=== PATIENT | male | born 1985 | race African-American/Black ===

== ENCOUNTER 2022-08-28 16:42 | Emergency (ER) | payer OTHER, SELFPAY ==
[2022-08-28 16:56] VITALS: BP 135/92; PULSE 87; RESP 16; TEMP 36.8; O2SAT 97; BMI 27.9
--- NOTE | 2022-08-28 16:58 | ED_ITS ---
HPI - General Adult General Chief complaint: General Medical Stated complaint: Post nasal drip Time Seen by Provider: 08/28/22 16:57 Source: patient Mode of arrival: ambulatory Limitations: no limitations History of Present Illness HPI narrative: Patient is a 36 year old assigned male at with a history of asthma presenting to the emergency department today with post-nasal drip and congestion. Patient states that he was seen for a few weeks ago for the same issue and was given a few days of prednisone and antibiotics and it got better but now it is back. Patient denies any dizziness, lightheadedness, abdominal pain, nausea, vomiting, fever, chills, blurry vision, double vision, loss of vision, chest pain, difficulty breathing, shortness of breath, back pain, night sweats, pain with urination, increased urinary frequency, increased urinary urgency, blood in his urine or stool, syncope or a near syncopal episode, recent trauma or falls, bowel incontinence, bladder incontinence, bowel retention, bladder retention, or any other complaints at this time. Onset (ago): week(s) Severity: mild Severity scale (1-10): 2 Relieving factors: none Exacerbating factors: none Associated symptoms: denies other symptoms Treatments prior to arrival: none Related Data Previous Rx's Medication Instructions Recorded loratadine 10 mg tablet 10 mg PO DAILY #30 tabs 08/28/22 prednisone 20 mg tablet 20 mg PO DAILY 7 days #7 tabs 08/28/22 Allergies Allergy/AdvReac Type Severity Reaction Status Date / Time No Known Allergies Allergy Verified 08/28/22 16:59 Review of Systems Constitutional: Constitutional: Reports no additional constitutional c omplaints, Denies chills, Denies fever(s) and Denies night sweats Eyes: Eyes: Reports no additional eye complaints, Denies blurry vision, Denies change in vision, Denies diplopia, Denies eye discharge, Denies loss of vision and Denies eye pain ENT: Denies dizziness Comments: post nasal drip, congestion Cardiovascular: Cardiovascular: Reports no additional cardiovascular complaints, Denies chest pain, Denies lightheadedness, Denies Loss of Consciousness and Denies dyspnea Respiratory: Respiratory: Reports no additional respiratory complaints and Denies dyspnea Gastrointestinal: Gastrointestinal: Reports no additional gastrointestinal complaints, Denies abdominal pain, Denies melena, Denies hematochezia, Denies change in bowel habits and Denies change in stool character Genitourinary: Genitourinary: Reports no additional male genitourinary complaints, Denies hematuria, Denies oliguria, Denies difficulty urinating, Denies dysuria, Denies urinary frequency, Denies urinary hesitancy, Denies urinary incontinence and Denies urinary urgency Musculoskeletal: Musculoskeletal: Reports no additional musculoskeletal complaints, Denies numbness and Denies tingling Neurologic: Denies dizziness, Denies loss of vision, Denies numbness and Denies tingling Psychiatric: Psychiatric: Reports no additional psychiatric complaints Endocrine: Endocrine: Reports no additional endocrine complaints Hematologic/Lymphatic: Hematologic/Lymphatic: Reports no additional hematologic/lymphatic complaints Allergic/Immunologic: Allergic/Immunologic: Reports no additional allergic/immunologic complaints PMFSH Past Medical History Attestation statement: The following information was validated with the patient. Source: old records reviewed and nursing notes reviewed Social History Social History Advance Directives: No Advance Directives Information Provided: No Physical Exam ED Vital Signs: Vital Signs - 24 hr 08/28/22 16:56 Temperature 98.2 F Pulse Rate 87 Respiratory Rate 16 Blood Pressure 135/92 H Pulse Oximetry 97 Oxygen Delivery Method Room Air BMI result Body Mass Index 27.9 Const General: cooperative, no acute distress, alert and awake Nutritional Appearance: well nourished Orientation/consciousness: patient oriented x3 Limitations: no limitations HENMT Head: Yes normal to inspection and Yes atraumatic Ears: hearing grossly normal bilaterally and external ears normal General nose exam: Normal external nose present, no nasal discharge noted and no epistaxis Face and sinus: Yes normal facial exam, No abrasion and No laceration Mouth: Normal oral and palatal mucosa present, no drooling and no muffled voice Eyes General: appearance normal, both eyes and all related structures Periorbital: periorbital findings normal Eyelids: Yes eyelids normal Conjunctivae: conjunctivae normal Pupils: Equal, round and reactive pupils present EOM: EOMs intact bilaterally Neck Neck: Yes normal visual inspection, Yes full ROM and Yes no lymphadenopathy Chest Chest palpation & inspection: normal inspection of the chest Resp Effort & Inspection: normal respiratory effort and able to speak in complete sentences GI Inspection: Yes normal to inspection Neuro General: patient oriented x3 and moves all extremities Cranial nerves: Yes Equal, round and reactive pupils present Cognition (Neuro): normal cognition Motor exam (neuro): 5/5 motor strength present throughout Sensory Exam: Normal double simultaneous stimulation for sensation Coordination: [id number] test normal Extrem General: Yes normal to inspection, Yes full ROM and Yes capillary refill normal Psych Appearance: grossly normal Mental Status: mental status grossly normal Affect: normal affect Attitude: cooperative Thought process: Normal thought process present Thought content: Normal thought content present Insight: Good insight present (Psych) Medical Decision Making Medical Decision Making MDM Narrative: Patient is a 36 year old assigned male at with a history of asthma presenting to the emergency department today with a post-nasal drip and congestion. Patient's physical exam was unremarkable. I explained my physical exam findings to the patient. I answered all questions asked by the patient. I stressed the importance of the patient taking his medication as prescribed. I stressed the importance of the patient following up with his primary care provider. I stressed the importance of the patient returning to the emergency department immediately if his symptoms were to worsen or if he were to develop any dizziness, shortness of breath, difficulty breathing, chest pain, blurry vision, loss of vision, nausea, vomiting, abdominal pain, fever, chills, back pain, or any other complaints. Patient verbalized agreement and understanding with this treatment plan and discharge. Differential Diagnosis Differential Diagnoses: The differential diagnosis associated with the presentation includes Post nasal drip Allergic rhinitis Asthma URI Sinusitis Prescription Management I considered prescription management with: Other (patient prescribed oral steroid and an anti-histamine) Discharge Plan Discharge Clinical Impression: PND (post-nasal drip) Patient Disposition: Home, Self-Care Instructions: Postnasal Drip (DC) Additional Instructions: Follow up with your primary care provider. Return to the emergency department immediately if your symptoms worsen or if you develop any dizziness, shortness of breath, difficulty breathing, chest pain, blurry vision, loss of vision, nausea, vomiting, abdominal pain, fever, chills, back pain, or any other complaints. Prescriptions: New prednisone 20 mg tablet 20 mg PO DAILY 7 Days Qty: 7 0RF loratadine 10 mg tablet 10 mg PO DAILY Qty: 30 0RF Referrals: [facility] [place] [facility]] (Call to establish and follow up with a primary care provider. If you already have a primary care provider, please follow up with them.) [facility] [[facility]] (Call to establish and follow up with a primary care provider. If you already have a primary care provider, please follow up with them.) [facility] [Provider Group] (Call to establish and follow up with a primary care provider. If you already have a primary care provider, please follow up with them.) Interventions: ED Discharge Assessment Last Done: 08/28/22 17:11 Discharge Date/Time: 08/28/22 17:11 Print Language: Nauruan
== END 2022-08-28 17:11 | disposition home or self-care (01) ==
LOC: HO.ED 17:15
PROVIDERS: Emergency Provider Emergency Medicine
DX: R09.82 Postnasal drip (principal); J45.909 Unspecified asthma, uncomplicated
CPT/HCPCS: 99282; 99283

== ENCOUNTER 2022-09-03 08:20 | Emergency (ER) | payer OTHER, SELFPAY ==
--- NOTE | ~2022-09-03 | XR_ITS ---
EXAMINATION: XR CHEST CLINICAL INFORMATION: Cough and wheezing. Shortness of breath. History of asthma. COMPARISON: None available. TECHNIQUE: 2 views of the chest were obtained. FINDINGS: Cardiac silhouette is normal in size. The lungs are well aerated. There is no lobar consolidation. No pleural effusion or pneumothorax. No acute osseous abnormality. XR/XR chest 2V IMPRESSION: No acute pulmonary pathology.
[2022-09-03 08:29] VITALS: BP 148/87; PULSE 90; RESP 18; TEMP 37; O2SAT 94; BMI 28.7
--- NOTE | 2022-09-03 08:41 | ED.SOB ---
HPI - SOB/Dyspnea General Chief Complaint: Dyspnea Stated Complaint: asthma Time Seen by Provider: 09/03/22 08:33 Source: patient Mode of arrival: ambulatory Limitations: no limitations History of Present Illness HPI Narrative: 36 yo male with history of asthma on Breo/albuterol MDI, HIV on antivirals, h/o PNA, current tobacco smoker here with complaints of cough, chest congestion, wheezing, shortness of breath since yesterday. Chest discomfort with coughing. No fevers, chills, leg swelling or pain. Patient reports in the last month his asthma has been out of control and he has been on two rounds of prednisone and one course of antibiotics. He is currently living in a sober living house (former meth use) and has had several negative COVID tests. He has been on the Breo for over one year and is asthma is currently managed by his PCP. He cannot recall his last PFTS. He has been hospitalized for asthma before but not in several years. No history of ICU admissions or intubation. Related Data Previous Rx's Medication Instructions Recorded loratadine 10 mg tablet 10 mg PO DAILY #30 tabs 08/28/22 prednisone 20 mg tablet 20 mg PO DAILY 7 days #7 tabs 08/28/22 amoxicillin 875 mg-potassium 1 tab PO BID #14 tabs 09/03/22 clavulanate 125 mg tablet prednisone 20 mg tablet 40 mg PO DAILY #10 tabs 09/03/22 Allergies Allergy/AdvReac Type Severity Reaction Status Date / Time No Known Allergies Allergy Verified 09/03/22 08:32 Review of Systems Review of Systems: Yes all other systems are reviewed and are negative Constitutional: Constitutional: Reports no additional constitutional complaints, Denies body ache(s), Denies chills, Denies fever(s), Denies headache(s) and Denies weakness Eyes: Eyes: Reports no additional eye complaints and Denies change in vision ENT: Reports system reviewed and no additional complaints, except as documented, Denies dizziness, Denies headache(s), Denies nasal congestion, Denies nasal discharge and Denies neck pain Cardiovascular: Cardiovascular: Reports no additional cardiovascular complaints, Denies chest pain, Denies leg edema and Reports dyspnea Respiratory: Respiratory: Reports no additional respiratory complaints, Reports cough, Reports dyspnea and Reports wheezing Gastrointestinal: Gastrointestinal: Reports no additional gastrointestinal complaints, Denies abdominal pain, Denies diarrhea, Denies nausea and Denies vomiting Genitourinary: Genitourinary: Denies urinary incontinence Musculoskeletal: Musculoskeletal: Reports no additional musculoskeletal complaints, Denies back pain, Denies arthralgias, Denies joint swelling, Denies neck pain, Denies numbness and Denies tingling Integumentary/Breasts: Skin/Breast: Reports system reviewed and no additional complaints, except as docu and Denies rash Neurologic: Reports system reviewed and no additional complaints, except as documented, Denies Abnormal speech present, Denies dizziness, Denies headache(s), Denies numbness, Denies tingling and Denies weakness Allergic/Immunologic: Allergic/Immunologic: Reports wheezing PMFSH Past Medical History Attestation statement: The following information was validated with the patient. Source: old records reviewed and nursing notes reviewed Social History Social History Advance Directives: No Advance Directives Information Provided: Yes Physical Exam Vital Signs: Vital Signs: Last Vital Signs Temp 98.6 F 09/03/22 08:29 Pulse 99 09/03/22 12:02 Resp 18 09/03/22 12:02 BP 125/58 L 09/03/22 12:02 Pulse Ox 93 09/03/22 12:02 O2 Del Method Room Air 09/03/22 12:02 BMI result Body Mass Index 28.7 Const: General: cooperative, healthy appearing, comfortable and no acute distress Orientation/consciousness: patient oriented x3 Limitations: no limitations HEENT: Head: Yes normal to inspection Ears: hearing grossly normal bilaterally and TM's normal bilaterally General nose exam: Normal external nose present Face and sinus: Yes normal facial exam Mouth: Normal oral and palatal mucosa present Throat: Yes posterior oropharynx normal, Yes tonsils normal and Yes uvula midline Eyes: General: appearance normal, both eyes and all related structures Pupils: Equal, round and reactive pupils present Neck: Neck: Yes normal visual inspection, Yes full ROM, Yes no lymphadenopathy and Yes no meningeal signs Chest: Chest palpation & inspection: normal inspection of the chest Resp: Other: Exp wheezing diffusely Effort & Inspection: normal respiratory effort Cardio: Rate: regular rate Rhythm: regular rhythm Peripheral pulses: Peripheral pulses 2+ throughout GI: Inspection: Yes normal to inspection Palpation (GI): Soft to palpation and nontender Auscultation: normal bowel sounds Back/Spine/Pelvis: Thoracic/Lumbar Spine: thoracic and lumbar spine normal to inspection Skin: General skin exam: no rashes or lesions noted Neuro: General: patient oriented x3, no meningeal signs, no focal motor deficits and normal sensation to monofilament Cranial nerves: Yes Equal, round and reactive pupils present Cognition (Neuro): normal cognition Speech: No Abnormal speech present Gait exam (Neuro): Normal gait present Motor exam (neuro): 5/5 motor strength present throughout Extrem: General: Yes normal to inspection, Yes no pedal edema and Yes no calf tenderness Course Course Course Narrative: 1100-Still wheezing. Saturation 94%. Will give repeat albuterol Reevaluation(s) Reevaluation #1: 1300-patient ambulated with oxygen saturations greater than 93%. Wheezing is improved. Plan for discharge home with prednisone course and antibiotic for presumed bronchitis. Patient should follow-up with his primary care doctor for better control over his asthma. Reviewed worrisome signs and symptoms and when to return to the emergency room. Comfortable plan for discharge home. Medications Administered Discontinued Medications Generic Name Dose Route Start Last Admin Trade Name Mauq PRN Reason Stop Dose Admin Albuterol Sulfate 2.5 mg/ 5 mg 09/03/22 10:55 09/03/22 11:18 Albuterol Sulfate 2.5 mg INHALE 09/03/22 10:56 5 mg ONCE ONE Administration Albuterol/Ipratropium 3 ml 09/03/22 08:41 09/03/22 09:24 Albuterol/Iprat 2.5/0.5mg 3 Ml Ampul.Neb INHALE 09/03/22 08:42 3 ml ONCE ONE Administration Magnesium Sulfate 2 gm in 50 mls @ 25 mls/hr 09/03/22 08:41 09/03/22 10:18 Magnesium Sulfate/H2o IV 09/03/22 10:40 Infused ONCE ONE Infusion Methylprednisolone Sodium Succinate 125 mg 09/03/22 08:41 09/03/22 08:57 Methylprednisolone Sod Succ 125 Mg/2 Ml Vial IVPUSH 09/03/22 08:42 125 mg ONCE ONE Administration Medical Decision Making Medical Decision Making MDM Narrative: 36 yo male with history of tobacco smoking, asthma, PNA, HIV, former substance use here with complaints of cough, wheezing, congestion, SOB worsened since yesterday but has been intermittent over the last one month despite using his inhalers, 2 courses of prednisone and one course of antibiotics. On arrival wheezing throughout, mild tachypnea, saturation 94% on RA Will need labs, testing for flu/covid/rsv, CXR. Will place PIV and give solumedrol, magnesium Will give duoneb Differential Diagnosis Differential Diagnoses: The differential diagnosis associated with the presentation includes asthma exacerbation, viral syndrome, PNA low concern for PE-no clinical findings concerning for DVT, no risk factors Lab Data MDM Lab Attestation statement: I reviewed the patient's lab results. I independently reviewed the labs which are unremarkable. COVID screen is negative 09/03/22 08:53 09/03/22 08:53 Labs: Lab Results 09/03/22 09/03/22 09/03/22 Range/Units 08:53 08:53 08:53 WBC 5.6 (4.8-10.8) X10*3/uL RBC 4.57 L (4.60-5.80) X10*6/uL Hgb 13.7 L (14.0-18.0) g/dl Hct 41.6 L (42.0-52.0) % MCV 91.0 (80.0-98.0) fL MCH 30.0 (27.0-33.0) pg MCHC 32.9 (31.0-36.0) g/dl RDW 13.9 (11.0-16.0) % Plt Count 241 (160-400) X10*3/uL MPV 9.4 (9.4-12.4) fL Immature Gran % (Auto) 0.5 H (0.0-0.4) % Neut % (Auto) 73.0 (45-73) % Lymph % (Auto) 12.6 L (20-40) % Fallon % (Auto) 8.9 (2-11) % Eos % (Auto) 4.6 H (0-4) % Baso % (Auto) 0.4 (0-2) % Lymph # (Auto) 0.7 L (1.2-4.9) X10*3/uL Fallon # (Auto) 0.5 (0.1-1.2) X10*3/uL Eos # (Auto) 0.3 (0.0-0.4) X10*3/uL Baso # (Auto) 0.0 (0.0-0.2) X10*3/uL Abs Immat Gran (auto) 0.03 (0.00-0.03) X10*3/uL Absolute Neuts (auto) 4.1 (2.0-8.3) x10*3/uL Absolute Nucleated RBC 0.000 (0.0-0.012) X10*3/uL Nucleated RBC % (auto) 0.0 (0.0-0.2) /100WBC Sodium 137 (135-145) mmol/L Potassium 3.5 (3.3-5.1) mmol/L Chloride 107 (96-108) mmol/L Carbon Dioxide 18 L (22-29) mmol/L Anion Gap 16 (12-20) BUN 14 (9-16) mg/dL Creatinine 1.22 (0.5-1.4) mg/dL Estim Creat Clear Calc 98.6 Estimated GFR > 60 Random Glucose 81 (60-115) mg/dL Calcium 9.2 (8.4-10.2) mg/dL Influenza Type A (PCR) NEGATIVE (Negative) Influenza Type B (PCR) NEGATIVE (Negative) RSV RNA Qual (PCR) NEGATIVE (Negative) SARS-CoV-2 RNA (RT-PCR) NEGATIVE (Negative) Independent Interpretation I performed an independent interpretation of an: Plain X-Ray Interpretation: I independently reviewed the CXR and agree with the rad report Radiology Impression Discussion of test interpretation with radiology: I have reviewed the radiologist's reading. Radiologist Impression: EXAMINATION: XR CHEST CLINICAL INFORMATION: Cough and wheezing. Shortness of breath. History of asthma. COMPARISON: None available. TECHNIQUE: 2 views of the chest were obtained. FINDINGS: Cardiac silhouette is normal in size. The lungs are well aerated. There is no lobar consolidation. No pleural effusion or pneumothorax. No acute osseous abnormality. XR/XR chest 2V IMPRESSION: No acute pulmonary pathology. Discharge Plan Discharge Clinical Impression: Asthma with exacerbation, Bronchitis Patient Disposition: Home, Self-Care Instructions: Asthma (ED), Acute Bronchitis (ED) Additional Instructions: Start your prednisone tomorrow Start the antibiotic today Continue your home medications. You need to follow-up with your doctor as your asthma is not well controlled. Return for worsening symptoms Prescriptions: New prednisone 20 mg tablet 40 mg PO DAILY Qty: 10 0RF amoxicillin-pot clavulanate 875-125 mg tablet 1 tab PO BID Qty: 14 0RF No Action prednisone 20 mg tablet 20 mg PO DAILY 7 Days Qty: 7 0RF loratadine 10 mg tablet 10 mg PO DAILY Qty: 30 0RF Referrals: Physician,Unknown J [Primary Care Provider] - 1 week
[2022-09-03 08:57] LABS: MANUAL DIFF FLAG NO
[2022-09-03] MEDS: Magnesium Sulfate/H2O 2 GM/50 ML PIGGYBACK IV (08:57)
[2022-09-03] MEDS: methylPREDNISolone Sod Succ 125 MG/2 ML VIAL IVPUSH (08:57)
[2022-09-03 08:59] LABS: Basophils Percent Auto 0.4 % (0-2); Eosinophils Absolute Auto 0.3 X10*3/uL (0.0-0.4); Eosinophils Percent Auto 4.6 % (0-4); Hematocrit 41.6 % (42.0-52.0); Hemoglobin 13.7 g/dl (14.0-18.0); Imm Gran Abs Auto 0.03 X10*3/uL (0.00-0.03); Imm Gran Pct Auto 0.5 % (0.0-0.4); Lymphocytes Absolute Auto 0.7 X10*3/uL (1.2-4.9); Lymphocytes Percent Auto 12.6 % (20-40); Mean Corpuscular HGB Conc 32.9 g/dl (31.0-36.0); Mean Platelet Volume 9.4 fL (9.4-12.4); Monocytes Absolute Auto 0.5 X10*3/uL (0.1-1.2); Monocytes Percent Auto 8.9 % (2-11); Neutrophils Absolute Auto 4.1 x10*3/uL (2.0-8.3); Platelet Count 241 X10*3/uL (160-400); Red Blood Count 4.57 X10*6/uL (4.60-5.80); Red Cell Distribution Width 13.9 % (11.0-16.0); White Blood Count 5.6 X10*3/uL (4.8-10.8)
[2022-09-03 09:13] LABS: Anion Gap 16 (12-20); Blood Urea Nitrogen 14 mg/dL (9-16); Calcium 9.2 mg/dL (8.4-10.2); Carbon Dioxide 18 mmol/L (22-29); Chloride 107 mmol/L (96-108); Creatinine Clr Calc Pharmacy 98.6; Estimated Glomerular Filt Rate > 60; Glucose Random 81 mg/dL (60-115); Potassium 3.5 mmol/L (3.3-5.1); Sodium 137 mmol/L (135-145)
[2022-09-03] MEDS: Albuterol/Iprat 2.5/0.5MG 3 ML AMPUL.NEB INHALE (09:24)
[2022-09-03 09:27] VITALS: PULSE 90; RESP 16; O2SAT 99
[2022-09-03 09:56] LABS: Influenza A PCR NEGATIVE (Negative); Influenza B PCR NEGATIVE (Negative); Resp Syncy Virus RNA Qual PCR NEGATIVE (Negative); SARS COV2 PCR INHOUSE NEGATIVE (Negative)
[2022-09-03 10:20] VITALS: BP 134/79; PULSE 88; RESP 18; O2SAT 94
--- NOTE | 2022-09-03 10:27 | PC.NURSE ---
Mag finished infusing, pt reports that he is having an easier time breathing, reports trying to break up some mucous in his chest.
[2022-09-03] MEDS: Albuterol Sulfate 2.5 MG, Albuterol Sulfate (0.083%) 2.5 MG 5 MG INHALE (11:18)
[2022-09-03 11:19] VITALS: PULSE 98; RESP 17; O2SAT 95
[2022-09-03 12:02] VITALS: BP 125/58; PULSE 99; RESP 18; O2SAT 93
--- NOTE | 2022-09-03 13:01 | PC.NURSE ---
pt ambulated with pct o2 maintaining between 91-94%. reporting feeling much better than he did when he arrived to the emergency department.
== END 2022-09-03 13:15 | disposition home or self-care (01) ==
PROVIDERS: Nurse Practitioner Family; Emergency Provider Emergency Medicine Emergency Medical Services
DX: J45.901 Unspecified asthma with (acute) exacerbation (principal); R06.02 Shortness of breath; R05.9 Cough, unspecified; Z20.822 Contact with and (suspected) exposure to COVID-19; Z20.828 Contact with and (suspected) exposure to other viral communicable diseases; Z79.899 Other long term (current) drug therapy
CPT/HCPCS: 0241U; 71046; 80048; 85025; 94640; 96365; 96366; 96375; 99284; 99285; J2930; J3475

== ENCOUNTER 2022-09-24 08:04 | Emergency (ER) | payer OTHER, SELFPAY ==
--- NOTE | ~2022-09-24 | XR_ITS ---
EXAMINATION: XR CHEST AP portable, 12:00 PM CLINICAL INFORMATION: Shortness of breath and wheezing COMPARISON: 09/03/2022 TECHNIQUE: Frontal view of the chest was obtained. FINDINGS: No significant abnormality is noted involving the heart, lungs, mediastinum, bony thorax or soft tissues. XR/XR chest 1V IMPRESSION: Unremarkable examination.
[2022-09-24 09:04] VITALS: BP 123/75; PULSE 78; RESP 17; TEMP 36.7; O2SAT 95; BMI 29.7
--- NOTE | 2022-09-24 09:34 | ED.GENADULT ---
HPI - General Adult General Chief complaint: Upper Respiratory Symptoms Stated complaint: nebulizer treatment Time Seen by Provider: 09/24/22 09:20 Source: patient Mode of arrival: ambulatory Limitations: no limitations History of Present Illness HPI narrative: Patient is a 36 year old male with a history of asthma, HIV presenting with a productive cough with clear phlegm and post nasal drip. Patient reports he had these symptoms worse 2 weeks ago. At that time he was seen, treated with a course of amoxicillin and prednisone and the patinet stated that the symptoms resolved. The patient states he was symptom free for about a week and a half before developing the symptoms again. Patient denies fever, chills, shortness of breath, chest pain, palpitations, nausea, vomiting. No hx of PE/DVT, no long travel or hx of malignacy Related Data Previous Rx's Medication Instructions Recorded loratadine 10 mg tablet 10 mg PO DAILY #30 tabs 08/28/22 prednisone 20 mg tablet 20 mg PO DAILY 7 days #7 tabs 08/28/22 amoxicillin 875 mg-potassium 1 tab PO BID #14 tabs 09/03/22 clavulanate 125 mg tablet prednisone 20 mg tablet 40 mg PO DAILY #10 tabs 09/03/22 albuterol sulfate 90 mcg/actuation 2 inh inhalation Q4-6H PRN 09/24/22 breath activated powder inhaler shortness of breath or wheezing #1 ea prednisone 20 mg tablet 40 mg PO DAILY 5 days #10 tabs 09/24/22 sulfamethoxazole 800 1 tab PO BID 10 days #20 tabs 09/24/22 mg-trimethoprim 160 mg tablet (Bactrim DS) Allergies Allergy/AdvReac Type Severity Reaction Status Date / Time No Known Allergies Allergy Verified 09/03/22 08:32 Review of Systems Review of Systems: Constitutional : No Weight loss, No Fever, No Chills, + Fatigue, No Malaise ENT/Mouth : + post nasal drip No sore throat, No Rhinorrhea Eyes: No Eye Pain, No Swelling, No Redness Cardiovascular : No Chest Pain, No SOB, No Dyspnea on Exertion, No Orthopnea, No Edema, No Palpitations Respiratory : + Cough with clear Sputum, No Wheezing, no shortness of breath Gastrointestinal : No Nausea, No Vomiting, No Diarrhea, No Constipation, No abdominal Pain, No Hematochezia, No Melena Genitourinary : No Dysuria, No Urinary Frequency, No Hematuria, Musculoskeletal : No joint pain, No Myalgias, No Joint Swelling Skin : No Skin Lesions, No rash Neuro : No Weakness, No Numbness, No Dizziness, No Headache Psych : No Anxiety/Panic, No Depression All other systems reviewed and are negative Yes all other systems are reviewed and are negative [facility] Past Medical History Attestation statement: The following information was validated with the patient. Source: old records reviewed and nursing notes reviewed Social History Social History Alcohol intake: never Smoked in Last 30 Days: Yes Use of substances other than those prescribed or required for medical reasons: No Advance Directives: No Physical Exam ED Vital Signs: Vital Signs - 24 hr 09/24/22 09:04 09/24/22 09:50 09/24/22 10:02 Temperature 98.0 F Pulse Rate 78 84 Respiratory Rate 17 21 H Blood Pressure 123/75 Pulse Oximetry 95 95 Oxygen Delivery Method Room Air Room Air 09/24/22 11:32 09/24/22 11:30 09/24/22 11:50 Temperature 97.9 F Pulse Rate 92 85 95 Respiratory Rate 18 18 16 Blood Pressure 132/77 Pulse Oximetry 96 Oxygen Delivery Method Room Air BMI result Body Mass Index 29.7 VSS Appearance: Alert.? Oriented X3.? No acute distress.? Head: Normocephalic, atraumatic, no step-offs or deformities Eyes: Pupils equal, round and reactive to light.? ENT: Pharynx mildly erythematous without exudates.? Neck: Normal inspection.? Neck supple.? CVS: Normal heart rate and rhythm.? Pulses normal.? Respiratory: No respiratory distress.? Wheezing throughout the lung simpson. No accesory muscles for breahting. Abdomen: Soft and nontender.? Skin: Skin warm and dry.? Normal skin color.? Normal skin turgor.? Extremities: No lower extremity edema.? No calf ttp. 5/5 strength to bilateral upper and lower extremities Neuro: Oriented X 3.? No motor deficit.? No sensory deficit. CN 2-12 intact Course Reevaluation(s) Reevaluation #1: Patient feeling better. Ambulatory O2 94-95% on room air. Given a rescue inhaler here. Chest x-ray obtained results pending however patient would like to go home before results. Patient feeling well. Educated patient on diagnosis and treatment plan, answered all question, patient verbalizes understanding. At this time patient will be discharged home, advised to return with new or worsening symptoms. Educated on worrisome signs and symptoms and when to return. At this time I feel comfortable discharge home. Time: 12:45 Medications Administered Discontinued Medications Generic Name Dose Route Start Last Admin Trade Name Lilliam PRN Reason Stop Dose Admin Albuterol Sulfate 10 mg 09/24/22 09:35 09/24/22 09:46 Albuterol Sulfate (0.083%) 2.5 Mg/3 Ml Vial.Neb INHALE 09/24/22 09:36 10 mg ONCE ONE Administration Albuterol Sulfate 5 mg 09/24/22 11:19 09/24/22 11:30 Albuterol Sulfate (0.083%) 2.5 Mg/3 Ml Vial.Neb INHALE 09/24/22 11:20 5 mg ONCE ONE Administration Albuterol Sulfate 2 puff 09/24/22 11:45 09/24/22 11:48 Albuterol Sulfate 90 Mcg 8 Gm Inhaler INHALE 09/24/22 11:46 2 puff ONCE ONE Administration Magnesium Sulfate 2 gm in 50 mls @ 25 mls/hr 09/24/22 09:52 09/24/22 10:36 Magnesium Sulfate/H2o IV 09/24/22 11:51 Infused ONCE ONE Infusion Methylprednisolone Sodium Succinate 125 mg 09/24/22 09:52 09/24/22 10:03 Methylprednisolone Sod Succ 125 Mg/2 Ml Vial IVPUSH 09/24/22 09:53 125 mg ONCE ONE Administration Medical Decision Making Medical Decision Making [facility] Narrative: Patient is a 36 year old male with a history of asthma presenting with productive cough and post nasal drip. Exam significant for wheezing throughout bilateral lung simpson. This is likely asthma exacerbation given significant wheezing however patient not experiencing chest tightness, shrotness of breath or trouble breathing unlikely PE or ACS. Other differentials include allergic post nasal drip vs viral respiratory infection. Unlikely pneumonia due to lack of fever, chills. Plan: Albuterol neb, Mag, solumedrol Differential Diagnosis Differential Diagnoses: The differential diagnosis associated with the presentation includes This is likely asthma exacerbation given significant wheezing however patient not experiencing chest tightness, shrotness of breath or trouble breathing unlikely PE or ACS. Other differentials include allergic post nasal drip vs viral respiratory infection. Unlikely pneumonia due to lack of fever, chills. Admission/Observation Consideration of admission/observation: Escalation of care including admission/observation considered Not indicated. Lab Data MDM Lab Attestation statement: I reviewed the patient's lab results. Labs: Lab Results 09/24/22 Range/Units 09:53 Free T4 0.82 (0.71-1.85) ng/dL Independent Interpretation I performed an independent interpretation of an: Plain X-Ray (wnl ) Radiology Impression Discussion of test interpretation with radiology: I have reviewed the radiologist's reading. Prescription Management I considered prescription management with: Antibiotic Core Measures AMI core measures followed: Yes Measure exclusions: not indicated Critical Care Time Critical Care Time Critical Care Time: No Discharge Plan Discharge Clinical Impression: Bronchitis, Upper respiratory infection, Asthma Patient Disposition: Home, Self-Care Instructions: Upper Respiratory Infection (ED) Additional Instructions: Take your medications as prescribed. If you were prescribed antibiotics today, it is important that you take your medication to their entirety, do not skip any doses, do not finish them early. Follow-up with your primary care provider this week. Return to the emergency department with new or worsening symptoms. Such as fevers, chills, chest pain, shortness of breath, nausea, vomiting, dizziness, headache, vision changes, lethargy In case of emergency call 911 Prescriptions: New sulfamethoxazole-trimethoprim [Bactrim DS] 800-160 mg tablet 1 tab PO BID 10 Days Qty: 20 0RF prednisone 20 mg tablet 40 mg PO DAILY 5 Days Qty: 10 0RF albuterol sulfate 90 mcg/actuation aerosol powdr breath activated 2 inh inhalation Q4-6H PRN (Reason: shortness of breath or wheezing) Qty: 1 0RF No Action prednisone 20 mg tablet 20 mg PO DAILY 7 Days Qty: 7 0RF loratadine 10 mg tablet 10 mg PO DAILY Qty: 30 0RF prednisone 20 mg tablet 40 mg PO DAILY Qty: 10 0RF amoxicillin-pot clavulanate 875-125 mg tablet 1 tab PO BID Qty: 14 0RF Referrals: Physician,Unknown J [Primary Care Provider] - 2 days Stand Alone Forms: Work/School Release
[2022-09-24] MEDS: Albuterol Sulfate (0.083%) 2.5 MG/3 ML VIAL.NEB 10 MG INHALE (09:46)
[2022-09-24 09:50] VITALS: PULSE 84; RESP 21; O2SAT 97
[2022-09-24 10:02] VITALS: O2SAT 95
[2022-09-24] MEDS: methylPREDNISolone Sod Succ 125 MG/2 ML VIAL IVPUSH (10:03)
[2022-09-24] MEDS: Magnesium Sulfate/H2O 2 GM/50 ML PIGGYBACK IV (10:05)
--- NOTE | 2022-09-24 10:07 | PC.NURSE ---
iv inserted, labs drawn. IV meds given per APR. Exp wheezing noted.
[2022-09-24 10:36] LABS: Free T4 (Free Thyroxine) 0.82 ng/dL (0.71-1.85)
[2022-09-24 11:30] VITALS: BP 132/77; PULSE 85; RESP 18; TEMP 36.6; O2SAT 96
[2022-09-24] MEDS: Albuterol Sulfate (0.083%) 2.5 MG/3 ML VIAL.NEB 5 MG INHALE (11:30)
[2022-09-24 11:32] VITALS: PULSE 92; RESP 18; O2SAT 98
[2022-09-24] MEDS: Albuterol Sulfate 90 MCG 8 GM INHALER 2 PUFF INHALE (11:48)
[2022-09-24 11:50] VITALS: PULSE 95; RESP 16; O2SAT 95
== END 2022-09-24 12:49 | disposition home or self-care (01) ==
PROVIDERS: Emergency Provider Emergency Medicine
DX: J40 Bronchitis, not specified as acute or chronic (principal); J06.9 Acute upper respiratory infection, unspecified; F17.210 Nicotine dependence, cigarettes, uncomplicated; B20 Human immunodeficiency virus [HIV] disease; Z79.899 Other long term (current) drug therapy
CPT/HCPCS: 36415; 71045; 84439; 94640; 96365; 96375; 99285; J2930; J3475

== ENCOUNTER 2022-10-07 13:29 | Outpatient (REF) | payer OTHER, SELFPAY ==
[2022-10-07 13:51] LABS: MANUAL DIFF FLAG NO
[2022-10-07 14:26] LABS: Basophils Percent Auto 0.2 % (0-2); Eosinophils Absolute Auto 0.6 X10*3/uL (0.0-0.4); Eosinophils Percent Auto 14.8 % (0-4); Hematocrit 44.2 % (42.0-52.0); Hemoglobin 14.7 g/dl (14.0-18.0); Imm Gran Abs Auto 0.03 X10*3/uL (0.00-0.03); Imm Gran Pct Auto 0.7 % (0.0-0.4); Lymphocytes Absolute Auto 0.7 X10*3/uL (1.2-4.9); Lymphocytes Percent Auto 17.3 % (20-40); Mean Corpuscular HGB Conc 33.3 g/dl (31.0-36.0); Mean Corpuscular Hemoglobin 30.8 pg (27.0-33.0); Mean Corpuscular Volume 92.7 fL (80.0-98.0); Mean Platelet Volume 9.8 fL (9.4-12.4); Monocytes Absolute Auto 0.4 X10*3/uL (0.1-1.2); Monocytes Percent Auto 9.2 % (2-11); Neutrophils Absolute Auto 2.4 x10*3/uL (2.0-8.3); Neutrophils Percent Auto 57.8 % (45-73); Platelet Count 306 X10*3/uL (160-400); Red Blood Count 4.77 X10*6/uL (4.60-5.80); Red Cell Distribution Width 14.6 % (11.0-16.0); White Blood Count 4.1 X10*3/uL (4.8-10.8)
[2022-10-08 10:23] LABS: Absolute CD3 Count 620 cells/uL (840-3060); Absolute CD4 Count 130 cells/uL (490-1740); Absolute CD8 Count 478 cells/uL (180-1170); Absolute Lymphocytes 793 cells/uL (850-3900); CD4 CD8 Ratio 0.27 (0.86-5.00); Percent CD3 Cells 78 % (57-85); Percent CD4 Cells 16 % (30-61); Percent CD8 Cells 60 % (12-42)
[2022-10-08 14:47] LABS: HIV RNA PCR Qn Copies NOT DETECTED copies/mL (NOT DETECTED); HIV RNA PCR Qn Log Copies NOT DETECTED (NOT DETECTED)
== END 2022-10-07 13:30 | disposition home or self-care (01) ==
LOC: HO.LAB 13:29
PROVIDERS: Visit Provider Internal Medicine Infectious Disease
DX: B20 Human immunodeficiency virus [HIV] disease (principal)
CPT/HCPCS: 36415; 85025; 86359; 86360; 87536

== ENCOUNTER 2022-10-10 19:19 | Emergency (ER) | payer OTHER, SELFPAY ==
--- NOTE | ~2022-10-10 | XR_ITS ---
EXAMINATION: XR CHEST CLINICAL INFORMATION: Shortness of breath, cough COMPARISON: 09/24/2022 TECHNIQUE: 2 views of the chest were obtained. FINDINGS: The lungs are clear with no focal consolidation. No evidence of pneumothorax, pulmonary edema, or pleural effusions. The cardiomediastinal silhouette is unremarkable. No acute osseous findings. XR/XR chest 2V IMPRESSION: No acute cardiopulmonary findings.
[2022-10-10 19:22] VITALS: BP 124/85; PULSE 89; RESP 20; TEMP 37.3; O2SAT 94; BMI 29.3
--- NOTE | 2022-10-10 19:22 | ED_ITS ---
HPI - Asthma General Chief Complaint: Asthma Stated Complaint: asthma Time Seen by Provider: 10/10/22 19:45 Source: patient Mode of arrival: ambulatory History of Present Illness HPI Narrative: 36-year-old male with past medical history of asthma and HIV (undetectable) and presents with running low on his asthma medication became worsening shortness of breath this evening, he denies any fevers or chills but states he has had a productive cough for the last couple days and denies any exposure to sick contacts. Related Data Previous Rx's Medication Instructions Recorded loratadine 10 mg tablet 10 mg PO DAILY #30 tabs 08/28/22 prednisone 20 mg tablet 20 mg PO DAILY 7 days #7 tabs 08/28/22 amoxicillin 875 mg-potassium 1 tab PO BID #14 tabs 09/03/22 clavulanate 125 mg tablet prednisone 20 mg tablet 40 mg PO DAILY #10 tabs 09/03/22 albuterol sulfate 90 mcg/actuation 2 inh inhalation Q4-6H PRN 09/24/22 breath activated powder inhaler shortness of breath or wheezing #1 ea prednisone 20 mg tablet 40 mg PO DAILY 5 days #10 tabs 09/24/22 sulfamethoxazole 800 1 tab PO BID 10 days #20 tabs 09/24/22 mg-trimethoprim 160 mg tablet (Bactrim DS) prednisone 50 mg tablet 50 mg PO DAILY 4 days #4 tabs 10/10/22 Allergies Allergy/AdvReac Type Severity Reaction Status Date / Time No Known Allergies Allergy Verified 10/10/22 19:22 Review of Systems Review of Systems: Pertinent positives and negatives as stated in HPI PMFSH Past Medical History Source: nursing notes reviewed Social History Social History Alcohol intake: never Advance Directives: No Advance Directives Information Provided: Yes Physical Exam Vital Signs: Vital Signs: Last Vital Signs Temp 98.3 F 10/10/22 20:00 Pulse 95 10/10/22 21:16 Resp 20 10/10/22 21:16 BP 130/76 10/10/22 20:00 Pulse Ox 94 10/10/22 20:00 O2 Del Method Room Air 10/10/22 20:00 BMI result Body Mass Index 29.3 VITAL SIGNS: Reviewed. GENERAL: Well developed, well nourished, in no acute distress. HEAD: Normocephalic/atraumatic EYES: PERRLA, EOMI EARS: Ext canals without abnormality NOSE: Nares patent bilateral OROPHARYNX: no oral lesions noted, posterior pharynx clear NECK: Supple, no adenopathy LUNGS: Decreased throughout without expiratory wheeze, tachypnea is present. S pO2<94> CARDIOVASCULAR: Regular rate and rhythm without noted murmurs, no JVD or lower extremity edema. ABDOMEN: Soft, non-tender, non-distended with bowel sounds. MUSCULOSKELETAL: No tenderness, deformities, or effusions noted on gross inspection. EXTREMITIES: No cyanosis, clubbing or edema. SKIN: Inspection of the skin reveals no rashes NEUROLOGIC: Alert and oriented x 4. Strength and sensation to light touch were grossly intact x 4. Course Course Course Narrative: RME: 36yo M w/PMHx asthma, HIV (reports compliance w/meds, has been undetectable), c/o asthma exacerbation with productive cough and SOB x few days. Admits to using inhalers. Last used Prednisone a few feeks ago. denies fever, CP Diffuse expiratory wheeze noted and coarse cough Labs, COVID testing, Albuterol Duoneb, IV Solumedrol ordered Full HPI, ROS and PE to be performed by primary ED provider. Medications Administered Discontinued Medications Generic Name Dose Route Start Last Admin Trade Name Mauq PRN Reason Stop Dose Admin Albuterol Sulfate 10 mg 10/10/22 21:01 10/10/22 21:11 Albuterol Sulfate (0.083%) 2.5 Mg/3 Ml Vial.Neb INHALE 10/10/22 21:02 10 mg ONCE ONE Administration Albuterol Sulfate 7.5 mg/ 0 mg 10/10/22 19:25 10/10/22 19:50 Albuterol/Ipratropium 3 ml INHALE 10/10/22 19:26 10 each ONCE ONE Administration Methylprednisolone Sodium Succinate 125 mg 10/10/22 19:25 10/10/22 20:09 Methylprednisolone Sod Succ 125 Mg/2 Ml Vial IVPUSH 10/10/22 19:26 125 mg ONCE ONE Administration Medical Decision Making Medical Decision Making MDM Narrative: 36-year-old male with history and clinical presentation, DDX: Asthma exacerbation, pneumonia. I reviewed all investigations and hematologic indices are chronically stable with normocytic anemia and a slight leukopenia without left shift and no thrombocytopenia. Patient is afebrile. Chemistry indices are grossly within normal limits without electrolyte abnormalities there is a noted bump in creatinine of 1.47 and discuss this with the patient at bedside regarding his current treatment regimen for HIV and he states that his physicians lab work is still pending and I strongly encouraged him to discuss these results in conjunction with his most recent lab work at the office. On re-evaluation patient is feeling much better and he is oxygenating well on room air. Chest x-ray does not show any infiltrates and otherwise my interpretation is in agreement with radiology's impression. Differential Diagnosis Differential Diagnoses: The differential diagnosis associated with the presentation includes Please see the discussion above Admission/Observation Consideration of admission/observation: Escalation of care including admission/observation considered Please see the discussion above Lab Data MDM Lab Attestation statement: I reviewed the patient's lab results. Please see the discussion above 10/10/22 20:03 10/10/22 20:03 Labs: Lab Results 10/10/22 10/10/22 Range/Units 20:03 20:03 WBC 4.7 L (4.8-10.8) X10*3/uL RBC 4.59 L (4.60-5.80) X10*6/uL Hgb 13.9 L (14.0-18.0) g/dl Hct 41.3 L (42.0-52.0) % MCV 90.0 (80.0-98.0) fL MCH 30.3 (27.0-33.0) pg MCHC 33.7 (31.0-36.0) g/dl RDW 14.4 (11.0-16.0) % Plt Count 281 (160-400) X10*3/uL MPV 9.4 (9.4-12.4) fL Immature Gran % (Auto) 0.4 (0.0-0.4) % Neut % (Auto) 61.9 (45-73) % Lymph % (Auto) 16.0 L (20-40) % [place] % (Auto) 8.1 (2-11) % Eos % (Auto) 13.4 H (0-4) % Baso % (Auto) 0.2 (0-2) % Lymph # (Auto) 0.8 L (1.2-4.9) X10*3/uL [place] # (Auto) 0.4 (0.1-1.2) X10*3/uL Eos # (Auto) 0.6 H (0.0-0.4) X10*3/uL Baso # (Auto) 0.0 (0.0-0.2) X10*3/uL Abs Immat Gran (auto) 0.02 (0.00-0.03) X10*3/uL Absolute Neuts (auto) 2.9 (2.0-8.3) x10*3/uL Absolute Nucleated RBC 0.000 (0.0-0.012) X10*3/uL Nucleated RBC % (auto) 0.0 (0.0-0.2) /100WBC Sodium 137 (135-145) mmol/L Potassium 3.9 (3.3-5.1) mmol/L Chloride 106 (96-108) mmol/L Carbon Dioxide 23 (22-29) mmol/L Anion Gap 12 (12-20) BUN 15 (9-16) mg/dL Creatinine 1.47 H (0.5-1.4) mg/dL Estim Creat Clear Calc 82.6 Estimated GFR 55 Random Glucose 97 (60-115) mg/dL Calcium 9.8 D (8.4-10.2) mg/dL Radiology Impression Discussion of test interpretation with radiology: I have reviewed the radiologist's reading. Radiologist Impression: Please see the discussion above External Record Review External record reviewed: Outpatient record, Prior outpatient labs and Prior outpatient radiology Critical Care Time Critical Care Time Critical Care Time: Yes Total Critical Care Time: 30 Attestation: I personally attest to this time spent taking care of the patient. Discharge Plan Discharge Clinical Impression: Asthma with acute exacerbation Patient Disposition: Home, Self-Care Instructions: Asthma (ED) Additional Instructions: 1. Please complete the short course of steroids as prescribed. 2. Please follow-up with your physician. creatinine-1.47 Return to the ER for any worsening symptoms. Prescriptions: New prednisone 50 mg tablet 50 mg PO DAILY 4 Days Qty: 4 0RF No Action prednisone 20 mg tablet 20 mg PO DAILY 7 Days Qty: 7 0RF loratadine 10 mg tablet 10 mg PO DAILY Qty: 30 0RF sulfamethoxazole-trimethoprim [Bactrim DS] 800-160 mg tablet 1 tab PO BID 10 Days Qty: 20 0RF prednisone 20 mg tablet 40 mg PO DAILY 5 Days Qty: 10 0RF albuterol sulfate 90 mcg/actuation aerosol powdr breath activated 2 inh inhalation Q4-6H PRN (Reason: shortness of breath or wheezing) Qty: 1 0RF prednisone 20 mg tablet 40 mg PO DAILY Qty: 10 0RF amoxicillin-pot clavulanate 875-125 mg tablet 1 tab PO BID Qty: 14 0RF Referrals: Barbara Potts NP [Primary Care Provider] -
[2022-10-10] MEDS: Albuterol Sulfate 7.5 MG, Albuterol/Iprat 2.5/0.5MG 3 ML 3 ML INHALE (19:50)
[2022-10-10 19:51] VITALS: PULSE 84; RESP 18; O2SAT 96
[2022-10-10 20:00] VITALS: BP 130/76; PULSE 95; RESP 16; TEMP 36.8; O2SAT 94
--- NOTE | 2022-10-10 20:00 | PC.NURSE ---
Pt ambulated from triage into room independently with steady gait. Pt A&Ox4, reports increase SOB x today. SpO2 94% on RA, RR 18, lung sounds wheezy, respiratory therapist at bedside giving tx. IV line placed, blood work collected and sent to lab, med given per APR.
[2022-10-10 20:07] LABS: MANUAL DIFF FLAG NO
[2022-10-10 20:08] LABS: Basophils Percent Auto 0.2 % (0-2); Eosinophils Absolute Auto 0.6 X10*3/uL (0.0-0.4); Eosinophils Percent Auto 13.4 % (0-4); Hematocrit 41.3 % (42.0-52.0); Hemoglobin 13.9 g/dl (14.0-18.0); Imm Gran Abs Auto 0.02 X10*3/uL (0.00-0.03); Imm Gran Pct Auto 0.4 % (0.0-0.4); Lymphocytes Absolute Auto 0.8 X10*3/uL (1.2-4.9); Mean Corpuscular HGB Conc 33.7 g/dl (31.0-36.0); Mean Corpuscular Hemoglobin 30.3 pg (27.0-33.0); Mean Platelet Volume 9.4 fL (9.4-12.4); Monocytes Absolute Auto 0.4 X10*3/uL (0.1-1.2); Monocytes Percent Auto 8.1 % (2-11); Neutrophils Absolute Auto 2.9 x10*3/uL (2.0-8.3); Neutrophils Percent Auto 61.9 % (45-73); Platelet Count 281 X10*3/uL (160-400); Red Blood Count 4.59 X10*6/uL (4.60-5.80); Red Cell Distribution Width 14.4 % (11.0-16.0); White Blood Count 4.7 X10*3/uL (4.8-10.8)
[2022-10-10] MEDS: methylPREDNISolone Sod Succ 125 MG/2 ML VIAL IVPUSH (20:09)
[2022-10-10 20:24] LABS: Anion Gap 12 (12-20); Blood Urea Nitrogen 15 mg/dL (9-16); Calcium 9.8 mg/dL (8.4-10.2); Carbon Dioxide 23 mmol/L (22-29); Chloride 106 mmol/L (96-108); Creatinine Clr Calc Pharmacy 82.6; Estimated Glomerular Filt Rate 55; Glucose Random 97 mg/dL (60-115); Potassium 3.9 mmol/L (3.3-5.1); Sodium 137 mmol/L (135-145)
[2022-10-10] MEDS: Albuterol Sulfate (0.083%) 2.5 MG/3 ML VIAL.NEB 10 MG INHALE (21:11)
[2022-10-10 21:16] VITALS: PULSE 95; RESP 20; O2SAT 93
[2022-10-10] MEDS: Albuterol Sulfate 90 MCG 8 GM INHALER 2 PUFF INHALE (22:00)
[2022-10-10 22:16] VITALS: BP 139/81; PULSE 98; RESP 16; TEMP 36.8
[2022-10-10 22:18] LABS: COVID-19 Test Negative (Negative); IDNOW Serial# 6674DD1D
== END 2022-10-10 22:15 | disposition home or self-care (01) ==
PROVIDERS: Physician Assistant; Emergency Provider Student in an Organized Health Care Education/Training Program; PCP Nurse Practitioner Family
DX: J45.901 Unspecified asthma with (acute) exacerbation (principal); R06.02 Shortness of breath
CPT/HCPCS: 71046; 80048; 85025; 87635; 94640; 96374; 96376; 99285; J2930

== ENCOUNTER 2022-10-16 14:00 | Emergency (ER) | payer OTHER, SELFPAY ==
[2022-10-16 15:21] VITALS: BP 119/69; PULSE 75; RESP 16; TEMP 36.6; O2SAT 97; BMI 30.1
--- NOTE | 2022-10-16 15:31 | ED.GENADULT ---
HPI - General Adult General Chief complaint: Dental/Oral Stated complaint: Dental Abscess Time Seen by Provider: 10/16/22 15:27 Source: patient, RN notes reviewed and old records reviewed Mode of arrival: ambulatory Limitations: no limitations History of Present Illness HPI narrative: 37-year-old male presents for evaluation of dental infection. ? The patient reports left lower facial right wrist pain and swelling He reports that he has known dental fractures to the area that chronic Denies any difficulty swallowing or breathing No fevers or chills Related Data Previous Rx's Medication Instructions Recorded loratadine 10 mg tablet 10 mg PO DAILY #30 tabs 08/28/22 prednisone 20 mg tablet 20 mg PO DAILY 7 days #7 tabs 08/28/22 amoxicillin 875 mg-potassium 1 tab PO BID #14 tabs 09/03/22 clavulanate 125 mg tablet prednisone 20 mg tablet 40 mg (2 x 20 mg) PO DAILY #10 tabs 09/03/22 albuterol sulfate 90 mcg/actuation 2 inh inhalation Q4-6H PRN 09/24/22 breath activated powder inhaler shortness of breath or wheezing #1 ea prednisone 20 mg tablet 40 mg (2 x 20 mg) PO DAILY 5 days 09/24/22 #10 tabs sulfamethoxazole 800 1 tab PO BID 10 days #20 tabs 09/24/22 mg-trimethoprim 160 mg tablet (Bactrim DS) prednisone 50 mg tablet 50 mg PO DAILY 4 days #4 tabs 10/10/22 prednisone 50 mg tablet 50 mg PO DAILY #4 tabs 10/11/22 amoxicillin 875 mg-potassium 1 tab PO BID #14 tabs 10/16/22 clavulanate 125 mg tablet Allergies Allergy/AdvReac Type Severity Reaction Status Date / Time No Known Allergies Allergy Verified 10/10/22 19:22 Review of Systems Constitutional: Constitutional: Denies chills and Denies fever(s) ENT: Reports dental pain Comments: Left facial swelling Cardiovascular: Cardiovascular: Denies chest pain and Denies dyspnea Respiratory: Respiratory: Denies cough, Denies pain with cough and Denies dyspnea Gastrointestinal: Gastrointestinal: Denies abdominal pain, Denies nausea and Denies vomiting Musculoskeletal: Musculoskeletal: Denies back pain PMFSH Social History Social History Alcohol intake: former Substance Use Type: Marijuana Advance Directives: No Advance Directives Information Provided: No Physical Exam ED Vital Signs: Vital Signs - 24 hr 10/16/22 15:21 Temperature 97.8 F Pulse Rate 75 Respiratory Rate 16 Blood Pressure 119/69 Pulse Oximetry 97 Oxygen Delivery Method Room Air BMI result Body Mass Index 30.1 Const General: healthy appearing, comfortable, no acute distress, alert and awake Nutritional Appearance: well nourished Orientation/consciousness: patient oriented x3 HENMT Other: He has mild left lower facial edema with minimal induration Head: Yes normocephalic and Yes atraumatic Teeth and gingiva: poor dentition (Multiple dental fractures to the left lower molars. No dental abscess note) Eyes Eyelids: Yes eyelids normal Conjunctivae: conjunctivae normal Sclerae: sclerae normal Corneas: corneas normal Pupils: Equal, round and reactive pupils present EOM: EOMs intact bilaterally Neck Neck: Yes full ROM Resp Effort & Inspection: normal respiratory effort, able to speak in complete sentences and not labored Skin General skin exam: no rashes or lesions noted and elasticity normal Neuro General: patient oriented x3 Cranial nerves: Yes Equal, round and reactive pupils present and Yes Bilaterally intact EOM present Cognition (Neuro): normal cognition Extrem Other: Moving all extremities well without any obvious deformities Medical Decision Making Medical Decision Making MDM Narrative: Patient has developing dental infections is no obvious drainable abscess. Will treat with Augmentin and lower compresses. Patient was encouraged to follow-up with his dentist Differential Diagnosis Differential Diagnoses: The differential diagnosis associated with the presentation includes Dental caries Dental infection Dental abscess Gingivitis Discharge Plan Discharge Clinical Impression: Dental caries, Facial swelling Patient Disposition: Home, Self-Care Instructions: Toothache (ED) Additional Instructions: Take the Augmentin twice daily for the next 7 days Apply warm compresses to the swollen area Follow-up with your dentist Prescriptions: New amoxicillin-pot clavulanate 875-125 mg tablet 1 tab PO BID Qty: 14 0RF No Action prednisone 20 mg tablet 20 mg PO DAILY 7 Days Qty: 7 0RF loratadine 10 mg tablet 10 mg PO DAILY Qty: 30 0RF sulfamethoxazole-trimethoprim [Bactrim DS] 800-160 mg tablet 1 tab PO BID 10 Days Qty: 20 0RF prednisone 20 mg tablet 40 mg PO DAILY 5 Days Qty: 10 0RF albuterol sulfate 90 mcg/actuation aerosol powdr breath activated 2 inh inhalation Q4-6H PRN (Reason: shortness of breath or wheezing) Qty: 1 0RF prednisone 20 mg tablet 40 mg PO DAILY Qty: 10 0RF amoxicillin-pot clavulanate 875-125 mg tablet 1 tab PO BID Qty: 14 0RF prednisone 50 mg tablet 50 mg PO DAILY 4 Days Qty: 4 0RF prednisone 50 mg tablet 50 mg PO DAILY Qty: 4 0RF Interventions: ED Discharge Assessment Last Done: 10/16/22 15:41
== END 2022-10-16 15:41 | disposition home or self-care (01) ==
PROVIDERS: Emergency Provider Emergency Medicine
DX: K02.9 Dental caries, unspecified (principal); R22.0 Localized swelling, mass and lump, head; F12.90 Cannabis use, unspecified, uncomplicated; Z87.891 Personal history of nicotine dependence
CPT/HCPCS: 99282; 99283

== ENCOUNTER 2022-10-18 08:01 | Emergency (ER) | payer OTHER, SELFPAY ==
--- NOTE | ~2022-10-18 | XR_ITS ---
EXAMINATION: XR CHEST CLINICAL INFORMATION: SOB COMPARISON: None available. TECHNIQUE: Frontal view of the chest was obtained. FINDINGS: No significant abnormality is noted involving the heart, lungs, mediastinum, bony thorax or soft tissues. XR/XR chest 1V IMPRESSION: Unremarkable chest examination.
[2022-10-18 08:06] VITALS: BP 128/84; PULSE 88; RESP 26; TEMP 36.6; O2SAT 89; BMI 29.3
--- NOTE | 2022-10-18 08:19 | ED_ITS ---
HPI - SOB/Dyspnea General Chief Complaint: Upper Respiratory Symptoms Stated Complaint: Diff breathing Time Seen by Provider: 10/18/22 08:12 Source: patient Mode of arrival: ambulatory Limitations: no limitations History of Present Illness HPI Narrative: This is a 37 years old man with history of asthma, HIV disease presented to the emergency department complaining of shortness of breath he was found hypoxic in triage. He was brought to the treatment room right away. MD elicited complaint: shortness of breath Pertinent past history: asthma Onset (ago): day(s) (1) Timing: constant Severity: severe Exacerbating factors: nothing Relieving factors: nothing Known history of: asthma Associated symptoms: denies other symptoms Related Data Home oxygen amount: none Home Medications Medication Instructions Recorded Confirmed albuterol sulfate 90 mcg/actuation 2 inh inhalation Q6H PRN Shortness 10/18/22 10/18/22 aerosol inhaler Of Breath Or Wheezing amlodipine 5 mg tablet 5 mg PO DAILY 10/18/22 10/18/22 amoxicillin 875 mg-potassium 1 tab PO BID 10/18/22 10/18/22 clavulanate 125 mg tablet biotin 5 mg capsule 5 mg PO DAILY 10/18/22 10/18/22 cetirizine 10 mg tablet 10 mg PO DAILY 10/18/22 10/18/22 darunavir 800 mg-cob 150 1 tab PO DAILY 10/18/22 10/18/22 mg-emtricit 200 mg-tenofo alafen 10 mg tablet (Symtuza) mirtazapine 7.5 mg tablet 7.5 mg PO BEDTIME 10/18/22 10/18/22 montelukast 10 mg tablet 10 mg PO BEDTIME 10/18/22 10/18/22 prazosin 1 mg capsule 1 mg PO BEDTIME 10/18/22 10/18/22 sulfamethoxazole 800 1 tab PO DAILY 10/18/22 10/18/22 mg-trimethoprim 160 mg tablet (Bactrim DS) trazodone 100 mg tablet 100 mg PO BEDTIME 10/18/22 10/18/22 Previous Rx's Medication Instructions Recorded albuterol sulfate 2.5 mg/3 mL 2.5 mg (3 mL) inhalation Q4-6H PRN 10/18/22 (0.083 %) solution for nebulization shortness of breath or wheezing #75 mL albuterol sulfate 90 mcg/actuation 2 puff inhalation Q6H PRN wheezing 10/18/22 aerosol inhaler #8.5 grams Allergies Allergy/AdvReac Type Severity Reaction Status Date / Time cat dander [cats] Allergy Sneezing Verified 10/18/22 08:06 pollen extracts Allergy Sneezing Verified 10/18/22 08:06 Review of Systems 2 Eyes: Eyes: Reports no additional eye complaints Cardiovascular: Cardiovascular: Reports no additional cardiovascular complaints, Reports dyspnea and Reports dyspnea on exertion Respiratory: Respiratory: Reports dyspnea, Reports dyspnea on exertion and Reports wheezing Gastrointestinal: Gastrointestinal: Reports no additional gastrointestinal complaints Musculoskeletal: Musculoskeletal: Reports no additional musculoskeletal complaints Allergic/Immunologic: Allergic/Immunologic: Reports wheezing [facility] Past Medical History Attestation statement: The following information was validated with the patient. [facility] Narrative: Asthma, HIV disease Social History Social History Alcohol intake: never Smoked in Last 30 Days: Yes Use of substances other than those prescribed or required for medical reasons: No Substance Use Type: Marijuana Advance Directives: No Physical Exam 2 Vital Signs: Vital Signs: Last Vital Signs Temp 98 F 10/18/22 08:06 Pulse 89 10/18/22 12:33 Resp 18 10/18/22 12:33 BP 134/74 10/18/22 12:20 Pulse Ox 92 10/18/22 12:21 O2 Del Method Nasal Cannula 10/18/22 12:21 O2 Flow Rate 2 10/18/22 12:20 Oxygen Flow Rate 2 10/18/22 12:21 BMI result Body Mass Index 29.3 Const: General: cooperative Nutritional Appearance: well nourished O rientation/consciousness: patient oriented x3 Limitations: no limitations HEENT: Head: Yes normal to inspection Ears: hearing grossly normal bilaterally General nose exam: Normal external nose present Mouth: Normal oral and palatal mucosa present Teeth and gingiva: dentition normal T hroat: Yes posterior oropharynx normal Neck: Neck: Yes normal visual inspection Chest: Chest palpation & inspection: normal inspection of the chest Resp: Effort & Inspection: normal respiratory effort Auscultation: rhonchi and wheezes Percussion: percussion normal Cardio: Jugular venous distension: no JVD Rate: regular rate Rhythm: r egular rhythm GI: Inspection: Yes normal to inspection Percussion: Yes normal to percussion Skin: General skin exam: no rashes or lesions noted Lesions: no lesions Rashes: no rashes Wounds: no wounds Neuro: General: patient oriented x3 Course Reevaluation(s) Reevaluation #1: doing better Time: 10:01 Reevaluation #2: wheezing again given another round of albuterol 7.5 he has now 02 requirement 2 liters will admit Time: 12:53 Reevaluation #3: pt signs AMA he understand risks including Time: 15:00 Medications Administered Discontinued Medications Generic Name Dose Route Start Last Admin Trade Name Freq PRN Reason Stop Dose Admin Albuterol Sulfate 7.5 mg 10/18/22 08:14 10/18/22 08:21 Albuterol Sulfate (0.083%) 2.5 Mg/3 Ml Vial.Neb INHALE 10/18/22 08:15 7.5 mg ONCE ONE Administration Albuterol Sulfate 7.5 mg 10/18/22 12:22 10/18/22 12:33 Albuterol Sulfate (0.083%) 2.5 Mg/3 Ml Vial.Neb INHALE 10/18/22 12:23 7.5 mg ONCE ONE Administration Magnesium Sulfate 2 gm in 50 mls @ 25 mls/hr 10/18/22 12:23 10/18/22 13:00 Magnesium Sulfate/H2o IV 10/18/22 14:22 Infused ONCE ONE Infusion Methylprednisolone Sodium Succinate 125 mg 10/18/22 08:15 10/18/22 08:39 Methylprednisolone Sod Succ 125 Mg/2 Ml Vial IVPUSH 10/18/22 08:16 125 mg ONCE ONE Administration Medical Decision Making Medical Decision Making [facility] Narrative: Patient presented with exacerbation of asthma, will administer beta 2 agonist steroid and reassessed Differential Diagnosis Differential Diagnoses: The differential diagnosis associated with the presentation includes Asthma/pneumonia Consult Healthcare Provider Management of the patient was discussed with: Hospitalist accepted by Dr Lee Lab Data MDM Lab Attestation statement: I reviewed the patient's lab results. 10/18/22 08:31 10/18/22 08:31 Labs: Lab Results 10/18/22 Range/Units 08:31 WBC 5.3 (4.8-10.8) X10*3/uL RBC 4.38 L (4.60-5.80) X10*6/uL Hgb 13.4 L (14.0-18.0) g/dl Hct 39.9 L (42.0-52.0) % MCV 91.1 (80.0-98.0) fL MCH 30.6 (27.0-33.0) pg MCHC 33.6 (31.0-36.0) g/dl RDW 14.5 (11.0-16.0) % Plt Count 236 (160-400) X10*3/uL MPV 9.5 (9.4-12.4) fL Immature Gran % (Auto) 0.4 (0.0-0.4) % Neut % (Auto) 72.8 (45-73) % Lymph % (Auto) 10.6 L (20-40) % [place] % (Auto) 6.3 (2-11) % Eos % (Auto) 9.5 H (0-4) % Baso % (Auto) 0.4 (0-2) % Lymph # (Auto) 0.6 L (1.2-4.9) X10*3/uL [place] # (Auto) 0.3 (0.1-1.2) X10*3/uL Eos # (Auto) 0.5 H (0.0-0.4) X10*3/uL Baso # (Auto) 0.0 (0.0-0.2) X10*3/uL Abs Immat Gran (auto) 0.02 (0.00-0.03) X10*3/uL Absolute Neuts (auto) 3.8 (2.0-8.3) x10*3/uL Absolute Nucleated RBC 0.000 (0.0-0.012) X10*3/uL Nucleated RBC % (auto) 0.0 (0.0-0.2) /100WBC Sodium 139 (135-145) mmol/L Potassium 4.3 (3.3-5.1) mmol/L Chloride 108 (96-108) mmol/L Carbon Dioxide 23 (22-29) mmol/L Anion Gap 12 (12-20) BUN 15 (9-16) mg/dL Creatinine 1.09 (0.5-1.4) mg/dL Estim Creat Clear Calc 110.3 Estimated GFR > 60 Random Glucose 98 (60-115) mg/dL Calcium 9.0 D (8.4-10.2) mg/dL Total Bilirubin 0.2 (0.0-1.0) mg/dL AST 16 (5-37) U/L ALT 10 (0-40) U/L Alkaline Phosphatase 49 (39-117) U/L Total Protein 7.1 (6.5-8.0) g/dL Albumin 3.9 (3.5-5.0) g/dL External Record Review External record reviewed: Inpatient record Critical Care Time Critical Care Time Critical Care Time: Yes Total Critical Care Time: 60 Attestation: multiple nebs back to back Discharge Plan Discharge Clinical Impression: Acute asthma exacerbation Patient Disposition: Left Against Medical Advice Instructions: Asthma (ED) Additional Instructions: you are sign against medical advice you understands the risks ,you are welcome to come back any time Prescriptions: New albuterol sulfate 90 mcg/actuation HFA aerosol inhaler 2 puff inhalation Q6H PRN (Reason: wheezing) Qty: 8.5 0RF albuterol sulfate 2.5 mg /3 mL (0.083 %) solution for nebulization 2.5 mg inhalation Q4-6H PRN (Reason: shortness of breath or wheezing) Qty: 75 0RF No Action cetirizine 10 mg tablet 10 mg PO DAILY prazosin 1 mg capsule 1 mg PO BEDTIME amlodipine 5 mg tablet 5 mg PO DAILY trazodone 100 mg tablet 100 mg PO BEDTIME montelukast 10 mg tablet 10 mg PO BEDTIME albuterol sulfate 90 mcg/actuation HFA aerosol inhaler 2 inh inhalation Q6H PRN (Reason: Shortness Of Breath Or Wheezing) mirtazapine 7.5 mg tablet 7.5 mg PO BEDTIME Symtuza 126-489-118-10 mg tablet 1 tab PO DAILY sulfamethoxazole-trimethoprim [Bactrim DS] 800-160 mg Tablet 1 tab PO DAILY biotin 5 mg Capsule 5 mg PO DAILY amoxicillin-pot clavulanate [Augmentin] 875-125 mg Tablet 1 tab PO BID Rx Instructions: prescribed for 7 days, started on 10/16/22
[2022-10-18 08:21] VITALS: PULSE 88; RESP 16; O2SAT 90
[2022-10-18] MEDS: Albuterol Sulfate (0.083%) 2.5 MG/3 ML VIAL.NEB 7.5 MG INHALE ×2 (08:21→12:33)
[2022-10-18 08:34] LABS: MANUAL DIFF FLAG NO
[2022-10-18 08:36] LABS: Basophils Percent Auto 0.4 % (0-2); Eosinophils Absolute Auto 0.5 X10*3/uL (0.0-0.4); Eosinophils Percent Auto 9.5 % (0-4); Hematocrit 39.9 % (42.0-52.0); Hemoglobin 13.4 g/dl (14.0-18.0); Imm Gran Abs Auto 0.02 X10*3/uL (0.00-0.03); Imm Gran Pct Auto 0.4 % (0.0-0.4); Lymphocytes Absolute Auto 0.6 X10*3/uL (1.2-4.9); Lymphocytes Percent Auto 10.6 % (20-40); Mean Corpuscular HGB Conc 33.6 g/dl (31.0-36.0); Mean Corpuscular Hemoglobin 30.6 pg (27.0-33.0); Mean Corpuscular Volume 91.1 fL (80.0-98.0); Mean Platelet Volume 9.5 fL (9.4-12.4); Monocytes Absolute Auto 0.3 X10*3/uL (0.1-1.2); Monocytes Percent Auto 6.3 % (2-11); Neutrophils Absolute Auto 3.8 x10*3/uL (2.0-8.3); Neutrophils Percent Auto 72.8 % (45-73); Platelet Count 236 X10*3/uL (160-400); Red Blood Count 4.38 X10*6/uL (4.60-5.80); Red Cell Distribution Width 14.5 % (11.0-16.0); White Blood Count 5.3 X10*3/uL (4.8-10.8)
[2022-10-18] MEDS: methylPREDNISolone Sod Succ 125 MG/2 ML VIAL IVPUSH (08:39)
[2022-10-18 09:00] LABS: Alanine Aminotransferase 10 U/L (0-40); Albumin Level 3.9 g/dL (3.5-5.0); Alkaline Phosphatase 49 U/L (39-117); Anion Gap 12 (12-20); Aspartate Amino Transferase 16 U/L (5-37); Bilirubin Total 0.2 mg/dL (0.0-1.0); Blood Urea Nitrogen 15 mg/dL (9-16); Carbon Dioxide 23 mmol/L (22-29); Chloride 108 mmol/L (96-108); Creatinine Clr Calc Pharmacy 110.3; Estimated Glomerular Filt Rate > 60; Glucose Random 98 mg/dL (60-115); Potassium 4.3 mmol/L (3.3-5.1); Sodium 139 mmol/L (135-145); Total Protein 7.1 g/dL (6.5-8.0)
[2022-10-18 12:20] VITALS: BP 134/74; PULSE 97; RESP 16; O2SAT 92
--- NOTE | 2022-10-18 12:20 | PC.NURSE ---
pt moved from room 19 into 13. pt very labored breathing at this time, breathing about 28-30 and sating at 88-90% on room air, ls wheezing through out and tight, ns on the monitor and put on 2l of nasal cannual and sating 93% dr drummond aware
[2022-10-18 12:21] VITALS: O2SAT 92
--- NOTE | 2022-10-18 12:21 | PC.NURSE ---
pt a&ox3. respirations even and unlabored. pt coming from skilled nursing where he reports an increased shortness of breath. pt states he has run out of his inhaler and has been unable to use it. pt has expiratory wheezing bilaterally. denies chest pain, nausea and vomiting. pt normal sinus on tele.
[2022-10-18 12:33] VITALS: PULSE 89; RESP 18; O2SAT 94
[2022-10-18] MEDS: Magnesium Sulfate/H2O 2 GM/50 ML PIGGYBACK IV (12:41)
--- NOTE | 2022-10-18 12:45 | PC.NURSE ---
pt doing breathing treatment, tolerating well.
--- NOTE | 2022-10-18 14:22 | PHA.MEDREC ---
med rec complete, no issues Pharmacy Consult ? Medication Reconciliation Pharmacy has completed the medication reconciliation.
[2022-10-18 15:07] VITALS: PULSE 92; RESP 20; O2SAT 94
--- NOTE | 2022-10-18 15:59 | PC.NURSE ---
called the [facility] and staff is picking the pt up, pt understands that he is leaving against medical advice
== END 2022-10-18 23:08 | disposition left against medical advice (07) ==
PROVIDERS: Emergency Provider Emergency Medicine
DX: J45.901 Unspecified asthma with (acute) exacerbation (principal); R06.02 Shortness of breath; Z79.899 Other long term (current) drug therapy
CPT/HCPCS: 36415; 71045; 80053; 85025; 94640; 96374; 99284; 99285; J2930; J3475

== ENCOUNTER 2022-10-18 22:58 | Observation (INO) | payer OTHER, SELFPAY ==
--- NOTE | 2022-10-18 | ECG_ITS ---
Test Reason : ASTHMA Blood Pressure : / mmHG Vent. Rate : 095 BPM Atrial Rate : 095 BPM P-R Int : 154 ms QRS Dur : 088 ms QT Int : 330 ms P-R-T Axes : 050 028 012 degrees QTc Int : 414 ms Normal sinus rhythm Minimal voltage criteria for LVH, may be normal variant ( [place] ) Borderline ECG No previous ECGs available Referred By: Generic ED Physician Electronically Signed By:RAQUEL BAEZ
--- NOTE | ~2022-10-18 | XR_ITS ---
EXAMINATION: XR CHEST CLINICAL INFORMATION: Shortness of breath. COMPARISON: 10/18/2022 TECHNIQUE: Frontal view of the chest was obtained. FINDINGS: The cardiomediastinal silhouette is normal. There is no focal lung consolidation or pleural effusion. The bony structures and soft tissues are unremarkable. XR/XR chest 1V IMPRESSION: No active cardiopulmonary disease.
[2022-10-18 23:04] VITALS: BP 126/71; PULSE 102; RESP 18; TEMP 36.9; O2SAT 93; BMI 29.3
--- NOTE | 2022-10-19 01:00 | ED_ITS ---
HPI - Asthma General Chief Complaint: Asthma Stated Complaint: SoB Time Seen by Provider: 10/19/22 00:31 History of Present Illness HPI Narrative: Patient is a 37-year-old male with a history of asthma. Was in the hospital yesterday. Was hypoxic. Patient signed out against medical advice. Came back in the afternoon because he is feeling more short of breath again. Patient was coughing extensively. Has a history of HIV but is currently on retroviral treatment. Last CD4 count was high and viral load was undetectable. Patient from home. No fever no chills. Positive for coughing congestion. Had x-rays done earlier today Related Data Home Medications Medication Instructions Recorded Confirmed albuterol sulfate 90 mcg/actuation 2 inh inhalation Q6H PRN Shortness 10/18/22 10/18/22 aerosol inhaler Of Breath Or Wheezing amlodipine 5 mg tablet 5 mg PO DAILY 10/18/22 10/18/22 amoxicillin 875 mg-potassium 1 tab PO BID 10/18/22 10/18/22 clavulanate 125 mg tablet biotin 5 mg capsule 5 mg PO DAILY 10/18/22 10/18/22 cetirizine 10 mg tablet 10 mg PO DAILY 10/18/22 10/18/22 darunavir 800 mg-cob 150 1 tab PO DAILY 10/18/22 10/18/22 mg-emtricit 200 mg-tenofo alafen 10 mg tablet (Symtuza) mirtazapine 7.5 mg tablet 7.5 mg PO BEDTIME 10/18/22 10/18/22 montelukast 10 mg tablet 10 mg PO BEDTIME 10/18/22 10/18/22 prazosin 1 mg capsule 1 mg PO BEDTIME 10/18/22 10/18/22 sulfamethoxazole 800 1 tab PO DAILY 10/18/22 10/18/22 mg-trimethoprim 160 mg tablet (Bactrim DS) trazodone 100 mg tablet 100 mg PO BEDTIME 10/18/22 10/18/22 Previous Rx's Medication Instructions Recorded albuterol sulfate 2.5 mg/3 mL 2.5 mg (3 mL) inhalation Q4-6H PRN 10/18/22 (0.083 %) solution for nebulization shortness of breath or wheezing #75 mL albuterol sulfate 90 mcg/actuation 2 puff inhalation Q6H PRN wheezing 10/18/22 aerosol inhaler #8.5 grams Allergies Allergy/AdvReac Type Severity Reaction Status Date / Time cat dander [cats] Allergy Sneezing Verified 10/18/22 23:04 pollen extracts Allergy Sneezing Verified 10/18/22 23:04 Review of Systems 2 Review of Systems: Positive shortness of breath Yes all other systems are reviewed and are negative [facility] Social History Social History Alcohol intake: never Substance Use Type: Marijuana Advance Directives: No Advance Directives Information Provided: Yes Physical Exam 2 Vital Signs: Vital Signs: Last Vital Signs Temp 98.4 F 10/18/22 23:04 Pulse 94 10/19/22 01:23 Resp 18 10/19/22 01:23 BP 126/71 10/18/22 23:04 Pulse Ox 93 10/18/22 23:04 O2 Del Method Room Air 10/18/22 23:04 BMI result Body Mass Index 29.3 Appearance: Alert. Oriented X3. No acute distress. Eyes: Pupils equal, round and reactive to light. ENT: Pharynx normal. Neck: Normal inspection. Neck supple. No lymph nodes noted. No crepitus CVS: Normal heart rate and rhythm. Pulses normal. Normal S1 and S2 Respiratory: Diminished breath sound bilaterally with increased work of breathing positive wheezing bilaterally Abdomen: Soft and nontender. No rigidity. No distention. good BS x4 Skin: Skin warm and dry. Normal skin color. Normal skin turgor. Extremities: No lower extremity edema. Neurovascular intact to all extremities. No Lacerations. No Rash Neuro: Oriented X 3. No motor deficit. No sensory deficit. Moving all extermities. No slurred speech Medications Administered Generic Name Dose Route Start Last Admin Trade Name Freq PRN Reason Stop Dose Admin Magnesium Sulfate 2 gm in 50 mls @ 50 mls/hr 10/19/22 01:05 10/19/22 01:31 Magnesium Sulfate/H2o IV 10/19/22 02:04 50 mls/hr ONCE ONE Administration Discontinued Medications Generic Name Dose Route Start Last Admin Trade Name Freq PRN Reason Stop Dose Admin Albuterol Sulfate 10 mg 10/19/22 00:58 10/19/22 01:19 Albuterol Sulfate (0.083%) 2.5 Mg/3 Ml Vial.Neb INHALE 10/19/22 00:59 10 mg ONCE ONE Administration Methylprednisolone Sodium Succinate 125 mg 10/19/22 00:58 10/19/22 01:31 Methylprednisolone Sod Succ 125 Mg/2 Ml Vial IVPUSH 10/19/22 00:59 125 mg ONCE ONE Administration Medical Decision Making Medical Decision Making [facility] Narrative: Patient presented back with increasing shortness of breath. History of asthma. Was given a continuous neb earlier today. Chest x-ray at that time showed no acute infiltrate. Patient will be given another treatment. X-ray and labs. Will admit patient for further evaluation as this is his 2nd visit to the emergency department. COVID test was sent. Patient given continuous neb. Still short of breath. Wheezing. Will admit patient for further evaluation. Differential Diagnosis Differential Diagnoses: The differential diagnosis associated with the presentation includes Asthma, pneumonia, pneumothorax, PE Admission/Observation Consideration of admission/observation: Escalation of care including admission/observation considered Consult Healthcare Provider Management of the patient was discussed with: Hospitalist Lab Data [facility] Lab Attestation statement: I reviewed the patient's lab results. 10/19/22 01:25 10/19/22 01:25 Labs: Lab Results 10/19/22 Range/Units 01:25 WBC 10.3 (4.8-10.8) X10*3/uL RBC 4.08 L (4.60-5.80) X10*6/uL Hgb 12.5 L (14.0-18.0) g/dl Hct 36.8 L (42.0-52.0) % MCV 90.2 (80.0-98.0) fL MCH 30.6 (27.0-33.0) pg MCHC 34.0 (31.0-36.0) g/dl RDW 14.6 (11.0-16.0) % Plt Count 247 (160-400) X10*3/uL MPV 9.4 (9.4-12.4) fL Immature Gran % (Auto) 0.3 (0.0-0.4) % Neut % (Auto) 94.5 H (45-73) % Lymph % (Auto) 2.0 L (20-40) % [place] % (Auto) 3.2 (2-11) % Eos % (Auto) 0.0 (0-4) % Baso % (Auto) 0.0 (0-2) % Lymph # (Auto) 0.2 L (1.2-4.9) X10*3/uL [place] # (Auto) 0.3 (0.1-1.2) X10*3/uL Eos # (Auto) 0.0 (0.0-0.4) X10*3/uL Baso # (Auto) 0.0 (0.0-0.2) X10*3/uL Abs Immat Gran (auto) 0.03 (0.00-0.03) X10*3/uL Absolute Neuts (auto) 9.7 H (2.0-8.3) x10*3/uL Absolute Nucleated RBC 0.000 (0.0-0.012) X10*3/uL Nucleated RBC % (auto) 0.0 (0.0-0.2) /100WBC Smear Tech's Comments VERIFIED Sodium 138 (135-145) mmol/L Potassium 4.3 (3.3-5.1) mmol/L Chloride 105 (96-108) mmol/L Carbon Dioxide 23 (22-29) mmol/L Anion Gap 14 (12-20) BUN 20 H (9-16) mg/dL Creatinine 1.10 (0.5-1.4) mg/dL Estim Creat Clear Calc 109.3 Estimated GFR > 60 Random Glucose 125 H (60-115) mg/dL Calcium 10.0 D (8.4-10.2) mg/dL Independent Interpretation I performed an independent interpretation of an: Plain X-Ray Interpretation: Chest x-ray negative for pneumonia pneumothorax Chronic Conditions HIV, asthma, smoking Social Determinants History of smoking Critical Care Time Critical Care Time Critical Care Time: Yes Total Critical Care Time: 40 Attestation: I have personally provided 40 minutes of critical care time exclusive of time spent on separately billable procedures. Time includes review of lab data, radiology results, discussion with consultants, and monitoring for potential decompensation. Interventions were performed as documented above Discharge Plan Discharge Clinical Impression: Asthma with acute exacerbation Patient Disposition: Admitted As Inpatient
[2022-10-19] MEDS: Albuterol Sulfate (0.083%) 2.5 MG/3 ML VIAL.NEB 10 MG INHALE (01:19)
[2022-10-19 01:23] VITALS: PULSE 94; RESP 18; O2SAT 94
[2022-10-19 01:30] LABS: Hematocrit 36.8 % (42.0-52.0); Hemoglobin 12.5 g/dl (14.0-18.0); Imm Gran Abs Auto 0.03 X10*3/uL (0.00-0.03); Imm Gran Pct Auto 0.3 % (0.0-0.4); Lymphocytes Absolute Auto 0.2 X10*3/uL (1.2-4.9); MANUAL DIFF FLAG SCAN; Mean Corpuscular Hemoglobin 30.6 pg (27.0-33.0); Mean Corpuscular Volume 90.2 fL (80.0-98.0); Mean Platelet Volume 9.4 fL (9.4-12.4); Monocytes Absolute Auto 0.3 X10*3/uL (0.1-1.2); Monocytes Percent Auto 3.2 % (2-11); Neutrophils Absolute Auto 9.7 x10*3/uL (2.0-8.3); Neutrophils Percent Auto 94.5 % (45-73); Platelet Count 247 X10*3/uL (160-400); Red Blood Count 4.08 X10*6/uL (4.60-5.80); Red Cell Distribution Width 14.6 % (11.0-16.0); SCAN SMEAR FLAG 1; White Blood Count 10.3 X10*3/uL (4.8-10.8)
[2022-10-19] MEDS: methylPREDNISolone Sod Succ 125 MG/2 ML VIAL IVPUSH (01:31)
[2022-10-19] MEDS: Magnesium Sulfate/H2O 2 GM/50 ML PIGGYBACK IV (01:31)
[2022-10-19 01:38] LABS: SLIDE REVIEW VERIFIED
[2022-10-19 01:47] LABS: Anion Gap 14 (12-20); Blood Urea Nitrogen 20 mg/dL (9-16); Carbon Dioxide 23 mmol/L (22-29); Chloride 105 mmol/L (96-108); Creatinine Clr Calc Pharmacy 109.3; Estimated Glomerular Filt Rate > 60; Glucose Random 125 mg/dL (60-115); Potassium 4.3 mmol/L (3.3-5.1); Sodium 138 mmol/L (135-145)
--- NOTE | 2022-10-19 02:23 | P.HPHOSP_ITS ---
History of Present Illness Date of Service: 10/19/22 Chief Complaint: Asthma exacerbation 37-year-old male past medical history of HIV, asthma, into the hospital with asthma exacerbation. Patient reports that his shoulder shortness of breath, cough, and significant wheezing that has been going on for 2 months and has been intermittently worsening. He reports his symptoms started worsening 2 days ago. He was seen in the ED earlier in the day, he reports that he left AMA, went home used several DuoNeb treatments more than 3, felt significantly wheezy, may have lost consciousness for several seconds, and decided to come back to the hospital. He reports continued wheezing, shortness of breath, but feels slightly better after receiving treatments in the ED. He denies any fever, chills, no chest pain, no abdominal pain, no diarrhea constipation, no urinary symptoms, no lower extremity edema For on arrival to the ED patient hemodynamically stable noted to be hypoxic satting 89% on room air Labs are significant for WBC count 11.1, hemoglobin of 13, hematocrit 38.4, labs otherwise unremarkable Chest x-ray negative for any acute infection Review of Systems 2 Review of Systems: Yes all other systems are reviewed and are negative [facility] Medical History (Updated 10/19/22 @ 06:40 by Ely Davila MD) History of HIV infection Asthma Social History Alcohol intake: never Substance Use Type: Marijuana Advance Directives: No Advance Directives Information Provided: Yes Meds Allergies Allergy/AdvReac Type Severity Reaction Status Date / Time cat dander [cats] Allergy Sneezing Verified 10/18/22 23:04 pollen extracts Allergy Sneezing Verified 10/18/22 23:04 Home Medications Medication Instructions Recorded Confirmed Last Taken Type albuterol sulfate 90 mcg/actuation 2 inh inhalation Q6H PRN Shortness 10/18/22 10/18/22 Unknown History aerosol inhaler Of Breath Or Wheezing amlodipine 5 mg tablet 5 mg PO DAILY 10/18/22 10/18/22 Unknown History amoxicillin 875 mg-potassium 1 tab PO BID 10/18/22 10/18/22 Unknown History clavulanate 125 mg tablet biotin 5 mg capsule 5 mg PO DAILY 10/18/22 10/18/22 Unknown History cetirizine 10 mg tablet 10 mg PO DAILY 10/18/22 10/18/22 Unknown History darunavir 800 mg-cob 150 1 tab PO DAILY 10/18/22 10/18/22 Unknown History mg-emtricit 200 mg-tenofo alafen 10 mg tablet (Symtuza) mirtazapine 7.5 mg tablet 7.5 mg PO BEDTIME 10/18/22 10/18/22 Unknown History montelukast 10 mg tablet 10 mg PO BEDTIME 10/18/22 10/18/22 Unknown History prazosin 1 mg capsule 1 mg PO BEDTIME 10/18/22 10/18/22 Unknown History sulfamethoxazole 800 1 tab PO DAILY 10/18/22 10/18/22 Unknown History mg-trimethoprim 160 mg tablet (Bactrim DS) trazodone 100 mg tablet 100 mg PO BEDTIME 10/18/22 10/18/22 Unknown History Physical Exam 2 Vital Signs and Narrative: Vital Signs: Last Vital Signs Temp 98.4 F 10/18/22 23:04 Pulse 94 10/19/22 01:23 Resp 18 10/19/22 01:23 BP 126/71 10/18/22 23:04 Pulse Ox 93 10/18/22 23:04 O2 Del Method Room Air 10/18/22 23:04 BMI result Body Mass Index 29.3 Const: General: cooperative and no acute distress O rientation/consciousness: patient oriented x3 Eyes: General: appearance normal, both eyes and all related structures Resp: Other: Bilateral wheezing Effort & Inspection: normal respiratory effort Cardio: Rate: regular rate Rhythm: regular rhythm GI: Palpation (GI): Soft to palpation Auscultation: normal bowel sounds Skin: General skin exam: no rashes or lesions noted Neuro: General: patient oriented x3 Cognition (Neuro): normal cognition Extrem: General: Yes normal to inspection and Yes no pedal edema Results Labs 10/19/22 05:40 10/19/22 05:40 Labs: Laboratory Results - last 24 hr 10/19/22 01:25 MCV 90.2 MCH 30.6 MCHC 34.0 RDW 14.6 Plt Count 247 MPV 9.4 Immature Gran % (Auto) 0.3 Neut % (Auto) 94.5 H Lymph % (Auto) 2.0 L [place] % (Auto) 3.2 Eos % (Auto) 0.0 Baso % (Auto) 0.0 Lymph # (Auto) 0.2 L [place] # (Auto) 0.3 Eos # (Auto) 0.0 Baso # (Auto) 0.0 Abs Immat Gran (auto) 0.03 Absolute Neuts (auto) 9.7 H Absolute Nucleated RBC 0.000 Nucleated RBC % (auto) 0.0 Smear Tech's Comments VERIFIED Anion Gap 14 Estim Creat Clear Calc 109.3 Estimated GFR > 60 Random Glucose 125 H Calcium 10.0 D Imaging Radiologist's Impressions: Impressions Chest X-Ray 10/19/22 01:22 IMPRESSION: No active cardiopulmonary disease. Assessment and Plan (1) Asthma with acute exacerbation: Qualifiers: Asthma severity: mild Asthma persistence: intermittent Qualified Code(s): J45.21 - Mild intermittent asthma with (acute) exacerbation Status: Inactive Plan 37-year-old male past medical history of asthma comes into the hospital with asthma exacerbation #Acute asthma exacerbation - had mild hypoxia earlier in the day - will treat with DuoNeb, steroids, - monitor respiratory status # history of HIV - continue antiviral medication DVT prophylaxis: Early ambulation Time Spent With Patient Time: Total time managing care of this patient today ____ minutes. Quality Stroke Does the patient have a stroke diagnosis?: No VTE Prior VTE?: No VTE Risk Level:: Medical - low VTE Device Contraindication: Treatment Not Indicated VTE Drug Contraindication: Treatment Not Indicated
[2022-10-19 02:35] LABS: Influenza A PCR NEGATIVE (Negative); Influenza B PCR NEGATIVE (Negative); Resp Syncy Virus RNA Qual PCR NEGATIVE (Negative); SARS COV2 PCR INHOUSE NEGATIVE (Negative)
[2022-10-19] MEDS: Acetaminophen 325 MG TABLET 650 MG PO (05:25)
[2022-10-19 05:53] VITALS: BP 132/69; PULSE 98; RESP 16; O2SAT 92
[2022-10-19 05:54] LABS: Basophils Percent Auto 0.1 % (0-2); Hematocrit 38.4 % (42.0-52.0); Imm Gran Abs Auto 0.07 X10*3/uL (0.00-0.03); Imm Gran Pct Auto 0.6 % (0.0-0.4); Lymphocytes Absolute Auto 0.2 X10*3/uL (1.2-4.9); Lymphocytes Percent Auto 1.4 % (20-40); MANUAL DIFF FLAG SCAN; Mean Corpuscular HGB Conc 33.9 g/dl (31.0-36.0); Mean Corpuscular Hemoglobin 31.2 pg (27.0-33.0); Mean Corpuscular Volume 92.1 fL (80.0-98.0); Mean Platelet Volume 9.9 fL (9.4-12.4); Monocytes Absolute Auto 0.3 X10*3/uL (0.1-1.2); Monocytes Percent Auto 2.4 % (2-11); Neutrophils Absolute Auto 10.6 x10*3/uL (2.0-8.3); Neutrophils Percent Auto 95.5 % (45-73); Platelet Count 249 X10*3/uL (160-400); Red Blood Count 4.17 X10*6/uL (4.60-5.80); Red Cell Distribution Width 14.7 % (11.0-16.0); SCAN SMEAR FLAG 1; White Blood Count 11.1 X10*3/uL (4.8-10.8)
--- NOTE | 2022-10-19 06:02 | PC.NURSE ---
Pt independent throughout the night, ambulatory with steady gait, A/O x4, curtain closed per pt request. Found on the ground at 0550 by staff after abnormal noise heard from the room. Pt states he had a coughing fit and then ended up on the floor. Pt got back into bed independently. Denies head pain, chest pain, or trouble breathing. MD at the bedside for evaluation, no further imaging ordered. Side rails up on the stretcher, call boykin placed within reach, personal belongings within reach. Pt remains A/O x4. buzzle buffer made aware.
[2022-10-19] MEDS: Albuterol/Iprat 2.5/0.5MG 3 ML AMPUL.NEB INHALE ×2 (06:05→11:39)
[2022-10-19] MEDS: Albuterol Sulfate (0.083%) 2.5 MG/3 ML VIAL.NEB 5 MG INHALE (06:05)
[2022-10-19 06:07] VITALS: PULSE 96; RESP 16; O2SAT 95
[2022-10-19 06:09] LABS: Anion Gap 17 (12-20); Blood Urea Nitrogen 19 mg/dL (9-16); Calcium 9.7 mg/dL (8.4-10.2); Carbon Dioxide 21 mmol/L (22-29); Chloride 105 mmol/L (96-108); Creatinine Clr Calc Pharmacy 110.3; Estimated Glomerular Filt Rate > 60; Glucose Random 146 mg/dL (60-115); Potassium 4.2 mmol/L (3.3-5.1); Sodium 139 mmol/L (135-145)
[2022-10-19] MEDS: guaiFEN/Codeine SF 200/20/10ML 10 ML LIQUID PO (06:18)
[2022-10-19 07:11] VITALS: BP 126/62; PULSE 98; RESP 16; TEMP 37.3; O2SAT 96
--- NOTE | 2022-10-19 07:16 | PHA.MEDREC ---
Pharmacy Consult ? Medication Reconciliation Pharmacy has completed the medication reconciliation. Patient left AMA on 10/18, pharmacy had completed a medication reconciliation on that date. Used med rec from previous profile.
[2022-10-19] MEDS: Benzonatate 100 MG CAPSULE PO (09:10)
[2022-10-19] MEDS: Amoxicillin/Potassium Clav 875 MG TABLET PO (09:10)
[2022-10-19] MEDS: amLODIPine Besylate 5 MG TABLET PO (09:10)
[2022-10-19] MEDS: Sulfamethox/Trimeth 800/160 TABLET 1 TAB PO (09:10)
[2022-10-19] MEDS: Loratadine 10 MG TABLET PO (09:10)
--- NOTE | 2022-10-19 09:16 | PC.NURSE ---
pt a&ox3, vss, pt verbalizing no pain alla. pt has expiratory wheezing noted upon auscultation. pt able to speak in full, clear sentences w/o WOB/SOB. 20gIV placed in the left forearm by previous nurse. pt using ED phone to make a call. call boykin placed within reach.
[2022-10-19] MEDS: 0.9 % Sodium Chloride Flush 3 ML SYRINGE IVFLUSH (09:18)
[2022-10-19 09:27] VITALS: BP 127/66; PULSE 95; RESP 18; TEMP 36.9; O2SAT 94
--- NOTE | 2022-10-19 11:11 | P.DS_ITS ---
DS: Providers Provider Date of Service: 10/19/22 Date of admission: 10/19/22 02:10 Date of discharge: 10/19/22 Primary care physician: Unknown Physician Attending physician on discharge: Bertin Nunn Discharging clinician: Bertin Nunn DS: Diagnosis Discharge Diagnosis (1) Asthma with acute exacerbation: Status: Inactive DS: Summary Hospital Course Hospital Course: 37-year-old male past medical history of HIV, asthma, into the hospital with asthma exacerbation. Patient reports that his shoulder shortness of breath, cough, and significant wheezing that has been going on for 2 months and has been intermittently worsening. He reports his symptoms started worsening 2 days ago. He was seen in the ED earlier in the day, he reports that he left AMA, went home used several DuoNeb treatments more than 3, felt significantly wheezy, may have lost consciousness for several seconds, and decided to come back to the hospital. He reports continued wheezing, shortness of breath, but feels slightly better after receiving treatments in the ED. He denies any fever, chills, no chest pain, no abdominal pain, no diarrhea constipation, no urinary symptoms, no lower extremity edema For on arrival to the ED patient hemodynamically stable noted to be hypoxic satting 89% on room air Labs are significant for WBC count 11.1, hemoglobin of 13, hematocrit 38.4, labs otherwise unremarkable Chest x-ray negative for any acute infection. hospital course:Patient was admitted for asthma exacerbation and possible bronchitis- cxr negative,patient was started on nebs, steroids, seems to be improved significantly , talking in full sentences, walking fine without in distress, sats with walking(on room air) around 92%,patient will be going home with p.o. steroids. No fevers, has some cough mostly nonproductive, occasionally whitish sputum. plan: patient will be going home with p.o. steroids. Is already on antibiotics for tooth infection. Follow-up with PCP in 1 week. Time Spent with Patient Time attestation: Total time managing care of this patient today ____ minutes. Discharge coordination time: Greater than 30 minutes Quality: Safe Use of Opioids Does Pt have an Active Cancer Diagnosis on the Problem List?: No Quality: Stroke Does the patient have a stroke diagnosis?: No Physical Exam Vital Signs: Vital Signs: Last Vital Signs Temp 98.4 F 10/19/22 09:27 Pulse 95 10/19/22 09:27 Resp 18 10/19/22 09:27 BP 127/66 10/19/22 09:27 Pulse Ox 94 10/19/22 09:27 O2 Del Method Room Air 10/19/22 09:27 BMI result Body Mass Index 29.3 Appearance: Alert.? Oriented X3.? not in distress.? Eyes: Pupils equal, round and reactive to light.? Sclera nonicteric.? ENT: Pharynx normal.? Moist mucous membranes. cvs: rrr, [id number] . res: air entry fair ,no rhonchii or wheezing abd: no rebound or guarding ,nt, bs present. ext pulses present , no cyanosis . neuro: axo3 , nonfocal. DS: Data Data Completed and Pending Labs on day of discharge: Laboratory Results - last 24 hr 10/19/22 10/19/22 01:25 05:40 WBC 10.3 11.1 H RBC 4.08 L 4.17 L Hgb 12.5 L 13.0 L Hct 36.8 L 38.4 L MCV 90.2 92.1 MCH 30.6 31.2 MCHC 34.0 33.9 RDW 14.6 14.7 Plt Count 247 249 MPV 9.4 9.9 Immature Gran % (Auto) 0.3 0.6 H Neut % (Auto) 94.5 H 95.5 H Lymph % (Auto) 2.0 L 1.4 L [place] % (Auto) 3.2 2.4 Eos % (Auto) 0.0 0.0 Baso % (Auto) 0.0 0.1 Lymph # (Auto) 0.2 L 0.2 L [place] # (Auto) 0.3 0.3 Eos # (Auto) 0.0 0.0 Baso # (Auto) 0.0 0.0 Abs Immat Gran (auto) 0.03 0.07 H Absolute Neuts (auto) 9.7 H 10.6 H Absolute Nucleated RBC 0.000 0.000 Nucleated RBC % (auto) 0.0 0.0 Smear Tech's Comments VERIFIED Sodium 138 139 Potassium 4.3 4.2 Chloride 105 105 Carbon Dioxide 23 21 L Anion Gap 14 17 BUN 20 H 19 H Creatinine 1.10 1.09 Estim Creat Clear Calc 109.3 110.3 Estimated GFR > 60 > 60 Random Glucose 125 H 146 H Calcium 10.0 D 9.7 Influenza Type A (PCR) NEGATIVE Influenza Type B (PCR) NEGATIVE RSV RNA Qual (PCR) NEGATIVE SARS-CoV-2 RNA (RT-PCR) NEGATIVE Imaging Chest x-ray: Radiologist's impression: ITS Impressions Chest X-Ray 10/19/22 01:22 IMPRESSION: No active cardiopulmonary disease. Discharge Plan Discharge Anticipated Discharge Date/Time: 10/19/22 11:08 Patient Disposition: Home, Self-Care Discharge Diagnosis: asthma excerebation Referrals: Physician,Unknown J [Primary Care Provider] - 1 Week Discharge Medications: New prednisone 20 mg tablet 40 mg PO DAILY Qty: 8 0RF Continued cetirizine 10 mg tablet 10 mg PO DAILY prazosin 1 mg capsule 1 mg PO BEDTIME amlodipine 5 mg tablet 5 mg PO DAILY trazodone 100 mg tablet 100 mg PO BEDTIME montelukast 10 mg tablet 10 mg PO BEDTIME albuterol sulfate 90 mcg/actuation HFA aerosol inhaler 2 inh inhalation Q6H PRN (Reason: Shortness Of Breath Or Wheezing) Symtuza [phone] mg tablet 1 tab PO DAILY sulfamethoxazole-trimethoprim [Bactrim DS] 800-160 mg Tablet 1 tab PO DAILY biotin 5 mg Capsule 5 mg PO DAILY amoxicillin-pot clavulanate 875-125 mg Tablet 1 tab PO BID Rx Instructions: prescribed for 7 days, started on 10/16/22 albuterol sulfate 2.5 mg /3 mL (0.083 %) solution for nebulization 2.5 mg inhalation Q4-6H PRN (Reason: shortness of breath or wheezing) Qty: 75 0RF Discharge Orders: Discharge Order (Routine); Ordered 10/19/22 Ordered By: Bertin Nunn Diet: Advance to usual diet Activity on Discharge: As tolerated Stand Alone Forms: Patient Portal Discharge page Care Plan Goals: Patient was admitted for asthma exacerbation and possible bronchitis- patient was started on nebs, steroids, seems to be improved significantly going home with p.o. steroids. Follow-up with PCP in 1 week. Health Concerns: As above. Plan of Treatment: As above. Assessment: As above.
[2022-10-19 11:42] VITALS: PULSE 98; RESP 18; O2SAT 96
[2022-10-19] MEDS: methylPREDNISolone Sod Succ 40 MG/ML VIAL IVPUSH (12:03)
--- NOTE | 2022-10-19 12:05 | PC.NURSE ---
vss and up to date. medications administered per provider order. inspiratory/expiratory wheezing still noted upon auscultation post breathing treatment. pt requesting cough syrup to help decrease pt's productive cough. will notify provider. call boykin placed within reach.
--- NOTE | 2022-10-19 13:53 | MHC.CM.PN ---
[facility] DELIVERED PT HAS BEEN MEDICALLY CLEARED FOR DC HOME, NO SERVICES. PT IS FROM [place] BUT TEMPORARILY LIVING IN A [facility] HERE. PCP IS IN [place]. PT HAS OWN RIDE BACK TO [facility].
== END 2022-10-19 21:01 | disposition home or self-care (01) ==
LOC: HO.ED 10-19 01:08 → HO.EDOVER 10-19 02:27 → HO.S3 10-19 09:58
PROVIDERS: Admitting Provider Internal Medicine; Emergency Provider Emergency Medicine Emergency Medical Services; Visit Provider Internal Medicine
DX: J45.21 Mild intermittent asthma with (acute) exacerbation (principal); Z20.822 Contact with and (suspected) exposure to COVID-19; Z21 Asymptomatic human immunodeficiency virus [HIV] infection status; Z86.718 Personal history of other venous thrombosis and embolism; Z79.899 Other long term (current) drug therapy; Z79.51 Long term (current) use of inhaled steroids; Z79.01 Long term (current) use of anticoagulants
CPT/HCPCS: 0241U; 36415; 71045; 80048; 85025; 93005; 94640; 96365; 96375; 96376; 99221; 99285; J2920; J2930; J3475

== ENCOUNTER → 2022-10-19 02:10 | Outpatient (BNV) | payer OTHER, SELFPAY | PROVIDERS: Admitting Provider Internal Medicine; Emergency Provider Emergency Medicine Emergency Medical Services; Visit Provider Internal Medicine | DX: J45.21 Mild intermittent asthma with (acute) exacerbation (principal) | CPT/HCPCS: 99235; 99499 ==

== ENCOUNTER 2022-11-12 21:47 | Emergency (ER) | payer OTHER, SELFPAY ==
[2022-11-12 21:50] VITALS: BP 140/80; PULSE 85; RESP 18; TEMP 37.1; O2SAT 94
[2022-11-12 23:44] VITALS: BP 129/70; PULSE 88; RESP 18; O2SAT 94
[2022-11-13] VITALS: BP 132/72; PULSE 78; RESP 18; O2SAT 95
--- NOTE | 2022-11-13 00:36 | ED.GENADULT ---
HPI - General Adult General Chief complaint: General Medical Stated complaint: asthma,foot inj Time Seen by Provider: 11/13/22 00:09 Source: patient Mode of arrival: ambulatory Limitations: no limitations History of Present Illness HPI narrative: Patient comes to the emergency room complaining of coughing and a syncopal episode. Patient states that he has history of asthma, recently stopped smoking. Since then, patient has been coughing more than usual. Patient states that a few days ago he coughed so much that he actually passed out twice. Patient states that when he fell he hurt his right foot. Patient is able to bear weight. Patient denies any chest pain or shortness of breath at this time. Related Data Home Medications Medication Instructions Recorded Confirmed albuterol sulfate 90 mcg/actuation 2 inh inhalation Q6H PRN Shortness 10/18/22 10/19/22 aerosol inhaler Of Breath Or Wheezing amlodipine 5 mg tablet 5 mg PO DAILY 10/18/22 10/19/22 amoxicillin 875 mg-potassium 1 tab PO BID 10/18/22 10/19/22 clavulanate 125 mg tablet biotin 5 mg capsule 5 mg PO DAILY 10/18/22 10/19/22 cetirizine 10 mg tablet 10 mg PO DAILY 10/18/22 10/19/22 darunavir 800 mg-cob 150 1 tab PO DAILY 10/18/22 10/19/22 mg-emtricit 200 mg-tenofo alafen 10 mg tablet (Symtuza) montelukast 10 mg tablet 10 mg PO BEDTIME 10/18/22 10/19/22 prazosin 1 mg capsule 1 mg PO BEDTIME 10/18/22 10/19/22 sulfamethoxazole 800 1 tab PO DAILY 10/18/22 10/19/22 mg-trimethoprim 160 mg tablet (Bactrim DS) trazodone 100 mg tablet 100 mg PO BEDTIME 10/18/22 10/19/22 Previous Rx's Medication Instructions Recorded albuterol sulfate 2.5 mg/3 mL 2.5 mg (3 mL) inhalation Q4-6H PRN 10/18/22 (0.083 %) solution for nebulization shortness of breath or wheezing #75 mL prednisone 20 mg tablet 40 mg (2 x 20 mg) PO DAILY #8 tabs 10/19/22 albuterol sulfate 90 mcg/actuation 2 puff inhalation Q4-6H PRN 11/13/22 aerosol inhaler shortness of breath or wheezing #8.5 grams prednisone 50 mg tablet 50 mg PO DAILY #4 tabs 11/13/22 Allergies Allergy/AdvReac Type Severity Reaction Status Date / Time cat dander [cats] Allergy Sneezing Verified 10/18/22 23:04 pollen extracts Allergy Sneezing Verified 10/18/22 23:04 Review of Systems Review of Systems: Constitutional : No Weight loss, No Fever, No Chills, No Night Sweats, No Fatigue, No Malaise ENT/Mouth : No Hearing loss, No Ear Pain, No Nasal Congestion, No Sinus Pain, No Hoarseness, No sore throat, No Rhinorrhea, No Swallowing Difficulty Eyes: No Eye Pain, No Swelling, No Redness, No Foreign Body, No Discharge, No Vision Changes Cardiovascular : No Chest Pain, No SOB, No Dyspnea on Exertion, No Orthopnea, No Edema, No Palpitations Respiratory : Complaining of coughing with sputum production, wheezing Gastrointestinal : No Nausea, No Vomiting, No Diarrhea, No Constipation, No abdominal Pain, No Hematochezia, No Melena Genitourinary : no irregular bleeding, No Dysuria, No Urinary Frequency, No Hematuria, No Urinary Incontinence, No Urgency, No Flank Pain, No Urinary Flow Changes, No Hesitancy Musculoskeletal : No joint pain, No Myalgias, No Joint Swelling Skin : No Skin Lesions, No rash Neuro : No Weakness, No Numbness, No Paresthesias, No Loss of Consciousness, No Dizziness, No Headache Psych : No Anxiety/Panic, No Depression, No SI/HI/AH/VH, No Social Issues, Heme/Lymph: No Bruising, No Bleeding,No Lymphadenopathy Endocrine : No Polyuria, No Polydipsia, No Temperature Intolerance [facility] Past Medical History Medical History (Updated 11/13/22 @ 00:41 by Milly Cardoso MD) History of HIV infection Asthma Social History Social History Alcohol intake: never Patient Tobacco Use Status: Former Tobacco user Smoked in Last 30 Days: No Use of substances other than those prescribed or required for medical reasons: No Substance Use Type: Marijuana Advance Directives: No Advance Directives Information Provided: Yes Physical Exam ED Vital Signs: Vital Signs - 24 hr 11/12/22 21:50 11/12/22 23:44 Temperature 98.7 F Pulse Rate 85 88 Respiratory Rate 18 18 Blood Pressure 140/80 H 129/70 Pulse Oximetry 94 94 Oxygen Delivery Method Room Air BMI result Body Mass Index 30.0 Const Other: Appearance: Alert. Oriented X3. No acute distress. Eyes: Pupils equal, round and reactive to light. ENT: Pharynx normal. Neck: Normal inspection. Neck supple. No lymph nodes noted. No crepitus CVS: Normal heart rate and rhythm. Pulses normal. Normal S1 and S2 Respiratory: No respiratory distress. Mild bilateral wheezing with good air movement No rales Abdomen: Soft and nontender. No rigidity. No distention. Skin: Skin warm and dry. Normal skin color. Normal skin turgor. Extremities: No lower extremity edema. No Lacerations. No Rash Neuro: Oriented X 3. No motor deficit. No sensory deficit. Moving all extremities. No slurred speech. CN 2 through 12 grossly intact Psych: calm, cooperative, normal affect Course Course Course Narrative: -all of patient's labs pending -patient receiving IV magnesium, Solu-Medrol and neb treatment -sign-out given to Dr. Hurtado Medical Decision Making Medical Decision Making [facility] Narrative: -my interpretation of x-ray the right foot: No fracture Differential Diagnosis Differential Diagnoses: The differential diagnosis associated with the presentation includes (Cardiac related Syncope, near syncope, vasovagal syncope) Admission/Observation Consideration of admission/observation: Escalation of care including admission/observation considered (Given patient's history, admission was considered on arrival) Lab Data [facility] Lab Attestation statement: I reviewed the patient's lab results. Labs: Lab Results 11/12/22 Range/Units 23:50 COVID-19 (RIKA) Negative (Negative) COVID-19 Clin Com See Note Influenza Type A (FLORY) Negative (Negative) Influenza Type B (FLORY) Negative (Negative) Influenza A & B Note See Note S. pyogenes GrpA FLORY Negative (Negative) Independent Interpretation I performed an independent interpretation of an: Plain X-Ray Radiology Impression Discussion of test interpretation with radiology: I have reviewed the radiologist's reading. Radiologist Impression: FINDINGS: No acute fracture or subluxation. Nonaggressive appearing bony productive changes along the interosseous surface of the distal tibia. No unexpected radiopaque foreign bodies. No significant soft tissue abnormality. XR/XR foot RT min 3V IMPRESSION: No evidence of acute traumatic sequela in this radiographic examination of the right foot. Even occult injury is suspected, further evaluation with CT or MRI could be obtained. Discharge Plan Discharge Clinical Impression: Asthma, Syncope Patient Disposition: Home, Self-Care Instructions: Asthma (ED), Syncope (ED) Additional Instructions: Please follow-up with your primary care physician tomorrow. If you have any worsening or new symptoms, please return to the emergency room or call 911 Prescriptions: New albuterol sulfate 90 mcg/actuation HFA aerosol inhaler 2 puff inhalation Q4-6H PRN (Reason: shortness of breath or wheezing) Qty: 8.5 2RF prednisone 50 mg tablet 50 mg PO DAILY Qty: 4 0RF No Action prednisone 20 mg tablet 40 mg PO DAILY Qty: 8 0RF cetirizine 10 mg tablet 10 mg PO DAILY prazosin 1 mg capsule 1 mg PO BEDTIME amlodipine 5 mg tablet 5 mg PO DAILY trazodone 100 mg tablet 100 mg PO BEDTIME montelukast 10 mg tablet 10 mg PO BEDTIME albuterol sulfate 90 mcg/actuation HFA aerosol inhaler 2 inh inhalation Q6H PRN (Reason: Shortness Of Breath Or Wheezing) Symtuza [phone] mg tablet 1 tab PO DAILY sulfamethoxazole-trimethoprim [Bactrim DS] 800-160 mg Tablet 1 tab PO DAILY biotin 5 mg Capsule 5 mg PO DAILY amoxicillin-pot clavulanate 875-125 mg Tablet 1 tab PO BID Rx Instructions: prescribed for 7 days, started on 10/16/22 albuterol sulfate 2.5 mg /3 mL (0.083 %) solution for nebulization 2.5 mg inhalation Q4-6H PRN (Reason: shortness of breath or wheezing) Qty: 75 0RF
[2022-11-13 00:44] VITALS: PULSE 86; RESP 16; O2SAT 94
[2022-11-13 01:37] LABS: Alanine Aminotransferase 15 U/L (0-40); Albumin Level 4.4 g/dL (3.5-5.0); Alkaline Phosphatase 52 U/L (39-117); Anion Gap 17 (12-20); Aspartate Amino Transferase 26 U/L (5-37); Bilirubin Direct 0.1 mg/dL (0.0-0.5); Bilirubin Total 0.3 mg/dL (0.0-1.0); Blood Urea Nitrogen 15 mg/dL (9-16); Calcium 9.9 mg/dL (8.4-10.2); Carbon Dioxide 21 mmol/L (22-29); Chloride 106 mmol/L (96-108); Creatinine Clr Calc Pharmacy 95.7; Estimated Glomerular Filt Rate > 60; Glucose Random 94 mg/dL (60-115); Potassium 3.8 mmol/L (3.3-5.1); Sodium 140 mmol/L (135-145); Total Protein 7.8 g/dL (6.5-8.0)
--- NOTE | 2022-11-13 02:14 | PC.NURSE ---
Assumed care of pt at 2344. pt endorsing mild R foot pain. Sts has been coughing, endorses possible syncopal episode. IV started, labs completed.
== END 2022-11-13 02:32 | disposition home or self-care (01) ==
PROVIDERS: Emergency Provider Emergency Medicine
DX: J45.909 Unspecified asthma, uncomplicated (principal); R55 Syncope and collapse; M79.671 Pain in right foot; Z11.52 Encounter for screening for COVID-19
CPT/HCPCS: 36415; 71045; 73630; 80048; 80076; 84484; 85025; 87502; 87635; 87651; 93005; 94640; 96365; 96375; 99284; 99285; J2930; J3475

== ENCOUNTER 2022-11-28 19:20 | Emergency (ER) | payer OTHER, SELFPAY ==
[2022-11-28 19:45] VITALS: BP 111/75; PULSE 104; RESP 20; TEMP 37.2; O2SAT 93
--- NOTE | 2022-11-28 19:45 | ED.GENADULT ---
HPI - General Adult General Chief complaint: Dyspnea Stated complaint: Congestion/difficulty breathing - asthma Time Seen by Provider: 11/29/22 00:28 Source: patient Mode of arrival: ambulatory Limitations: no limitations History of Present Illness HPI narrative: patient comes to the emergency room complaining of an asthma exacerbation. Patient states that started today. Patient denies any chest pain. No cough, no fever. Patient has been using his inhaler at home without any significant relief. Related Data Home Medications Medication Instructions Recorded Confirmed albuterol sulfate 90 mcg/actuation 2 inh inhalation Q6H PRN Shortness 10/18/22 10/19/22 aerosol inhaler Of Breath Or Wheezing amlodipine 5 mg tablet 5 mg PO DAILY 10/18/22 10/19/22 amoxicillin 875 mg-potassium 1 tab PO BID 10/18/22 10/19/22 clavulanate 125 mg tablet biotin 5 mg capsule 5 mg PO DAILY 10/18/22 10/19/22 cetirizine 10 mg tablet 10 mg PO DAILY 10/18/22 10/19/22 darunavir 800 mg-cob 150 1 tab PO DAILY 10/18/22 10/19/22 mg-emtricit 200 mg-tenofo alafen 10 mg tablet (Symtuza) montelukast 10 mg tablet 10 mg PO BEDTIME 10/18/22 10/19/22 prazosin 1 mg capsule 1 mg PO BEDTIME 10/18/22 10/19/22 sulfamethoxazole 800 1 tab PO DAILY 10/18/22 10/19/22 mg-trimethoprim 160 mg tablet (Bactrim DS) trazodone 100 mg tablet 100 mg PO BEDTIME 10/18/22 10/19/22 Previous Rx's Medication Instructions Recorded albuterol sulfate 2.5 mg/3 mL 2.5 mg (3 mL) inhalation Q4-6H PRN 10/18/22 (0.083 %) solution for nebulization shortness of breath or wheezing #75 mL prednisone 20 mg tablet 40 mg (2 x 20 mg) PO DAILY #8 tabs 10/19/22 albuterol sulfate 90 mcg/actuation 2 puff inhalation Q4-6H PRN 11/13/22 aerosol inhaler shortness of breath or wheezing #8.5 grams prednisone 50 mg tablet 50 mg PO DAILY #4 tabs 11/13/22 albuterol sulfate 90 mcg/actuation 2 puff inhalation Q4-6H PRN 11/29/22 aerosol inhaler shortness of breath or wheezing #8.5 grams prednisone 50 mg tablet 50 mg PO DAILY #5 tabs 11/29/22 Allergies Allergy/AdvReac Type Severity Reaction Status Date / Time cat dander [cats] Allergy Sneezing Verified 11/28/22 19:52 pollen extracts Allergy Sneezing Verified 11/28/22 19:52 Review of Systems Review of Systems: Constitutional : No Weight loss, No Fever, No Chills, No Night Sweats, No Fatigue, No Malaise ENT/Mouth : No Hearing loss, No Ear Pain, No Nasal Congestion, No Sinus Pain, No Hoarseness, No sore throat, No Rhinorrhea, No Swallowing Difficulty Eyes: No Eye Pain, No Swelling, No Redness, No Foreign Body, No Discharge, No Vision Changes Cardiovascular : No Chest Pain, No SOB, No Dyspnea on Exertion, No Orthopnea, No Edema, No Palpitations Respiratory : No Cough, No Sputum, Complaining of Wheezing, No Smoke Exposure, No Dyspnea Gastrointestinal : No Nausea, No Vomiting, No Diarrhea, No Constipation, No abdominal Pain, No Hematochezia, No Melena Genitourinary : no irregular bleeding, No Dysuria, No Urinary Frequency, No Hematuria, No Urinary Incontinence, No Urgency, No Flank Pain, No Urinary Flow Changes, No Hesitancy Musculoskeletal : No joint pain, No Myalgias, No Joint Swelling Skin : No Skin Lesions, No rash Neuro : No Weakness, No Numbness, No Paresthesias, No Loss of Consciousness, No Dizziness, No Headache Psych : No Anxiety/Panic, No Depression, No SI/HI/AH/VH, No Social Issues, Heme/Lymph: No Bruising, No Bleeding,No Lymphadenopathy Endocrine : No Polyuria, No Polydipsia, No Temperature Intolerance PMFSH Past Medical History Medical History History of HIV infection Asthma Social History Social History Alcohol intake: never Patient Tobacco Use Status: Former Tobacco user Substance Use Type: Marijuana Advance Directives: No Advance Directives Information Provided: Yes Physical Exam ED Vital Signs: Vital Signs - 24 hr 11/28/22 19:45 Temperature 98.9 F Pulse Rate 104 H Respiratory Rate 20 Blood Pressure 111/75 Pulse Oximetry 93 Oxygen Delivery Method Room Air BMI result Body Mass Index 30.0 Const Other: Appearance: Alert. Oriented X3. No acute distress. Eyes: Pupils equal, round and reactive to light. ENT: Pharynx normal. Neck: Normal inspection. Neck supple. No lymph nodes noted. No crepitus CVS: Normal heart rate and rhythm. Pulses normal. Normal S1 and S2 Respiratory: No respiratory distress. bilateral wheezing, no rales or crackles Abdomen: Soft and nontender. No rigidity. No distention. Skin: Skin warm and dry. Normal skin color. Normal skin turgor. Extremities: No lower extremity edema. No Lacerations. No Rash Neuro: Oriented X 3. No motor deficit. No sensory deficit. Moving all extremities. No slurred speech. CN 2 through 12 grossly intact Psych: calm, cooperative, normal affect Course Course Course Narrative: This is a rapid medical exam: Additional HPI, ROS, PE not included below will be deferred to primary provider. Patient is a 37-year-old male with history of asthma presenting to the emergency department with complaint of cough, shortness of breath and wheezing since earlier today. States he is currently out of his asthma medication. Reports he recently quit smoking but ran out of patches so he smoked a cigarette yesterday which he feels exacerbated his symptoms. Patient with inspiratory and expiratory wheezing with decreased air movement. Patient given 4 puffs albuterol inhaler in triage. O2 95% on room air, mildly tachycardic. Plan: swab for Covid, flu, albuterol administered in triage Medications Administered Discontinued Medications Generic Name Dose Route Start Last Admin Trade Name Mauq PRN Reason Stop Dose Admin Albuterol Sulfate 4 puff 11/28/22 19:48 11/28/22 19:53 Albuterol Sulfate 90 Mcg 8 Gm Inhaler INHALE 11/28/22 19:49 4 puff ONCE ONE Administration Medical Decision Making Medical Decision Making [facility] Narrative: - discussed with the patient he will be receiving an albuterol updraft, also, I discussed with the patient he would benefit from IV magnesium/solu-Medrol. However, patient states that he needs to get back home as soon as possible to take care of his young kids. Patient is requesting to get an albuterol updraft, p.o. steroids and to be discharged as soon as possible. Patient states that he cannot stay in the hospital even if adviced. Differential Diagnosis Differential Diagnoses: The differential diagnosis associated with the presentation includes ( asthma exacerbation, COVID, influenza) Lab Data MDM Lab Attestation statement: I reviewed the patient's lab results. Labs: Lab Results 11/28/22 Range/Units 20:00 COVID-19 ([facility]KA) Negative (Negative) COVID-19 Clin Com See Note Influenza Type A (FLORY) Negative (Negative) Influenza Type B (FLORY) Negative (Negative) Influenza A & B Note See Note Critical Care Time Critical Care Time Critical Care Time: Yes Total Critical Care Time: 30 Attestation: I have personally provided critical care time. Time includes review of lab data, radiology results, discussion with consultants, and monitoring for potential decompensation. Intervention performed as documented. Discharge Plan Discharge Clinical Impression: Asthma with acute exacerbation Patient Disposition: Home, Self-Care Instructions: Asthma (ED) Additional Instructions: Please follow-up with your primary care physician tomorrow. If you have any worsening or new symptoms, please return to the emergency room or call 911 Prescriptions: New albuterol sulfate 90 mcg/actuation HFA aerosol inhaler 2 puff inhalation Q4-6H PRN (Reason: shortness of breath or wheezing) Qty: 8.5 1RF prednisone 50 mg tablet 50 mg PO DAILY Qty: 5 0RF No Action prednisone 20 mg tablet 40 mg PO DAILY Qty: 8 0RF albuterol sulfate 90 mcg/actuation HFA aerosol inhaler 2 puff inhalation Q4-6H PRN (Reason: shortness of breath or wheezing) Qty: 8.5 2RF prednisone 50 mg tablet 50 mg PO DAILY Qty: 4 0RF cetirizine 10 mg tablet 10 mg PO DAILY prazosin 1 mg capsule 1 mg PO BEDTIME amlodipine 5 mg tablet 5 mg PO DAILY trazodone 100 mg tablet 100 mg PO BEDTIME montelukast 10 mg tablet 10 mg PO BEDTIME albuterol sulfate 90 mcg/actuation HFA aerosol inhaler 2 inh inhalation Q6H PRN (Reason: Shortness Of Breath Or Wheezing) Symtuza [phone] mg tablet 1 tab PO DAILY sulfamethoxazole-trimethoprim [Bactrim DS] 800-160 mg Tablet 1 tab PO DAILY biotin 5 mg Capsule 5 mg PO DAILY amoxicillin-pot clavulanate 875-125 mg Tablet 1 tab PO BID Rx Instructions: prescribed for 7 days, started on 10/16/22 albuterol sulfate 2.5 mg /3 mL (0.083 %) solution for nebulization 2.5 mg inhalation Q4-6H PRN (Reason: shortness of breath or wheezing) Qty: 75 0RF
[2022-11-28] MEDS: Albuterol Sulfate 90 MCG 8 GM INHALER 4 PUFF INHALE (19:53)
[2022-11-28 20:21] LABS: COVID-19 Test Negative (Negative); IDNOW Serial# 6674DD1D
[2022-11-28 20:38] LABS: IDNOW Serial# 9DB6401D; Influenza A Negative (Negative); Influenza B2 Negative (Negative)
--- NOTE | 2022-11-28 23:34 | PC.NURSE ---
Pt demonstrating improved respiratory effort with administered inhaler.
[2022-11-29] MEDS: predniSONE 20 MG TABLET 60 MG PO (00:38)
[2022-11-29] MEDS: Albuterol Sulfate (0.083%) 2.5 MG/3 ML VIAL.NEB 5 MG INHALE (00:38)
--- NOTE | 2022-11-29 00:41 | PC.NURSE ---
Medicated per MAR. Provided with DC paperwork.
== END 2022-11-29 00:42 | disposition home or self-care (01) ==
PROVIDERS: Registered Nurse Emergency; Emergency Provider Emergency Medicine; PCP Internal Medicine Infectious Disease
DX: J45.901 Unspecified asthma with (acute) exacerbation (principal); Z11.52 Encounter for screening for COVID-19; Z79.899 Other long term (current) drug therapy
CPT/HCPCS: 87502; 87635; 99282; 99284

== ENCOUNTER 2023-02-19 13:59 | Outpatient (AMB) | payer OTHER, SELFPAY ==
[2023-02-19 14:01] VITALS: BP 108/64; PULSE 78; O2SAT 96; BMI 31.2
--- NOTE | 2023-02-19 14:01 | A.OFFVIS_ITS ---
Intake Vital Signs 02/19/23 14:01 Height 5 ft 11 in Weight 223 lb 12.307 oz BMI 31.2 BP 108/64 Blood Pressure Location Rt brachial Position Sitting Pulse 78 Pulse Source Doppler Pulse Oximetry (%) 96 Oxygen Delivery Method Room Air Intake Visit Reasons: Cough Allergies cat dander [cats] Allergy (Verified 02/19/23 14:03) Sneezing pollen extracts Allergy (Verified 02/19/23 14:03) Sneezing HPI Cough HPI Details 37-year-old gentleman, former 5 pack-yea r smoker, quit 2022, with underlying HIV on HAART and Bactrim prophylaxis, also asthma since childhood with recent exacerbation requiring treatment with systemic glucocorticoids and nebulized bronchodilators referred for evaluation of his pulmonary concerns. Patient states that he never been intubated for asthma that his symptoms suboptimally controlled at this time, so that he requires to use albuterol several times a day and sometimes at night. He does complain of multiple environmental allergies. He also complains of postnasal drip. Patient does have multiple first-degree relatives with asthma. He denies exposure to industrial dusts. FORMERLY [facility], [facility] Medical History (Updated 02/19/23 @ 14:21 by Rodolfo Walden MD) Asthma History of HIV infection Social History (Updated 02/19/23 @ 14:06 by Shari Conn Nikhil) Alcohol intake: never Patient Tobacco Use Status: Former Tobacco user Tobacco use type: Cigarette Cigarettes Per Day: 7 Years Smoked: started at 19 Substance Use Type: Marijuana Review of Systems Const Denies daytime sleepiness, Denies excessive sweating, Denies fatigue, Denies fever(s), Denies lethargy, Denies malaise, Denies night sweats, Denies snoring and Denies weight loss Eyes Denies blurry vision and Denies itchy eyes ENT Denies nasal congestion, Reports post nasal drip, Denies sinus pain, Denies sinus pressure and Denies other ( Thrush) Card Denies chest pain, Denies pedal edema, Denies dyspnea, Denies orthopnea and Denies paroxysmal nocturnal dyspnea Resp Denies cough, Denies hemoptysis, Denies excessive phlegm production, Denies dyspnea, Denies snoring and Reports wheezing GI Denies abdominal pain and Denies heartburn Musc Denies myalgias, Denies arthralgias and Denies joint swelling Skin/Breast Denies rash Neuro Denies memory loss and Denies seizure-like activity Psych Denies abnormal sleep pattern, Denies anxiety and Denies memory loss Endo Denies excessive sweating, Denies fatigue and Denies heat intolerance Ernesto/Lymph Denies easy bruising Aller/Immun Denies itchy eyes, Denies seasonal rhinorrhea and Reports wheezing Physical Exam Vital Signs: Last Vital Signs Pulse 78 02/19/23 14:01 BP 108/64 02/19/23 14:01 Pulse Ox 96 02/19/23 14:01 Oxygen Delivery Method Room Air 02/19/23 14:01 BMI result Body Mass Index 31.2 Const General: no acute distress and alert Nutritional Appearance: not obese Orientation/consciousness: Other orientation findings ( oriented) HEENT Head: Yes atraumatic Eyes General: appearance normal, both eyes and all related structures Sclerae: sclerae normal EOM: EOMs intact bilaterally Neck Neck: Yes supple Lymphatic: no lymphadenopathy noted Resp Effort & Inspection: normal respiratory effort and no use of accessory muscles Auscultation: clear to auscultation bilaterally Cardio Rate: regular rate Rhythm: regular rhythm Heart sounds: no gallops, no murmurs and no rubs Skin General skin exam: other ( warm) Extrem General: No clubbing, No cyanosis and No edema Assessment & Plan Assessment & Plan (1) Environmental allergies: Code(s): Z91.09 - Other allergy status, other than to drugs and biological substances Plan: Will obtain RAST, CBC with differential, and IgE level for further evaluation. Will start on nasal ipratropium for allergic rhinitis. (2) Asthma: Code(s): J45.909 - Unspecified asthma, uncomplicated Plan: Suboptimally controlled on albuterol MDI/nebs. Will start on Breo. Will obtain full PFT. Orders: Orders Resp Allergy Profile Region I Today J45.901 - Unspecified asthma with (acute) exacerbation Complete Blood Count Auto Diff Today J45.901 - Unspecified asthma with (acute) exacerbation PFT pulmonary function test Today J45.901 - Unspecified asthma with (acute) exacerbation Medications: New fluticasone furoate-vilanterol 200-25 mcg/dose (Breo Ellipta) 1 inh inhalation DAILY 1 ea 6RF 30 days J45.901 - Unspecified asthma with (acute) exacerbation ipratropium bromide administer into each nostril 2 sprays intranasal TID 15 mL 6RF 30 days J45.901 - Unspecified asthma with (acute) exacerbation Coding Level of Care Code New Pt Level 4 (93788) Diagnoses Environmental allergies Z91.09 Asthma J45.909
== END 2023-02-19 14:16 | disposition home or self-care (01) ==
PROVIDERS: PCP Internal Medicine Infectious Disease; Referring Provider Internal Medicine Infectious Disease; Visit Provider Internal Medicine Pulmonary Disease
DX: Z91.09 Other allergy status, other than to drugs and biological substances (principal); J45.909 Unspecified asthma, uncomplicated
CPT/HCPCS: 99204

== ENCOUNTER 2023-02-19 13:59 | Outpatient (REF) | payer OTHER, SELFPAY ==
[2023-02-19 14:35] LABS: MANUAL DIFF FLAG NO
[2023-02-19 15:35] LABS: Basophils Percent Auto 0.3 % (0-2); Eosinophils Absolute Auto 0.5 X10*3/uL (0.0-0.4); Hematocrit 41.7 % (42.0-52.0); Hemoglobin 13.8 g/dl (14.0-18.0); Imm Gran Abs Auto 0.02 X10*3/uL (0.00-0.03); Imm Gran Pct Auto 0.6 % (0.0-0.4); Lymphocytes Absolute Auto 0.7 X10*3/uL (1.2-4.9); Lymphocytes Percent Auto 19.7 % (20-40); Mean Corpuscular HGB Conc 33.1 g/dl (31.0-36.0); Mean Corpuscular Hemoglobin 30.9 pg (27.0-33.0); Mean Corpuscular Volume 93.3 fL (80.0-98.0); Mean Platelet Volume 10.1 fL (9.4-12.4); Monocytes Absolute Auto 0.4 X10*3/uL (0.1-1.2); Monocytes Percent Auto 11.6 % (2-11); Neutrophils Absolute Auto 1.8 x10*3/uL (2.0-8.3); Neutrophils Percent Auto 53.8 % (45-73); Platelet Count 253 X10*3/uL (160-400); Red Blood Count 4.47 X10*6/uL (4.60-5.80); Red Cell Distribution Width 12.6 % (11.0-16.0); White Blood Count 3.4 X10*3/uL (4.8-10.8)
[2023-02-23 03:09] LABS: Class Alternaria alternata 2; Class Aspergillus fumigatus 2; Class Bermuda Grass 0/1; Class Birch 4; Class Cat Dander 5; Class Cladosporium herbarum 2; Class Cockroach 0/1; Class Common Ragweed 2; Class Cottonwood 0/1; Class Derm. pterony 2; Class Dermatophagoides farinae 1; Class Dog Dander 6; Class Elm 0/1; Class Maple Box Elder 1; Class Mountain Cedar 0/1; Class Mouse Urine Protein 2; Class Mugwort 0/1; Class Oak 4; Class Penicillium crysogenum 2; Class Rough Pigweed 0/1; Class Sheep Sorrel 1; Class Sycamore 1; Class Timothy Grass 0/1; Class Walnut Tree 2; Class White Ash 2; Class White Mulberry 0/1; D001 IgE D pteronyssinus 0.84 kU/L; D002 - IgE D farinae 0.65 kU/L; E005 - IgE Dog Dander >100 kU/L; G002 IgE Bermuda Grass 0.11 kU/L; G006 - IgE Timothy Grass 0.11 kU/L; I006-IgE Cockroach, German 0.22 kU/L; Immunoglobulin E 2719 kU/L (<OR=114); M001 IgE Penicillium chrysogen 2.28 kU/L; M002 - IgE Cladosporium herbar 0.91 kU/L; M003 - IgE Aspergillus fumigat 0.96 kU/L; M006 - IgE Alternaria alternat 0.71 kU/L; T001 IgE Maple/Box Elder 0.46 kU/L; T006 - IgE Cedar, Mountain 0.23 kU/L; T008 IgE Elm, American 0.33 kU/L; T010 - IgE Walnut 1.44 kU/L; T011 - IgE Maple Leaf Sycamore 0.63 kU/L; T014 - IgE Cottonwood 0.22 kU/L; T070 - IgE White Mulberry 0.15 kU/L; W001 - IgE Ragweed, Short 0.97 kU/L; W006 - IgE Mugwort 0.16 kU/L; W014 IgE Pigweed, Common 0.11 kU/L; W018 IgE Sheep Sorrel 0.49 kU/L
== END 2023-02-19 14:00 | disposition home or self-care (01) ==
LOC: HO.LAB 13:59
PROVIDERS: PCP Internal Medicine Infectious Disease; Referring Provider Internal Medicine Infectious Disease; Visit Provider Internal Medicine Pulmonary Disease
DX: J45.901 Unspecified asthma with (acute) exacerbation (principal)
CPT/HCPCS: 36415; 82785; 85025; 86003; 99202

== ENCOUNTER 2023-03-31 13:06 | Outpatient (AMB) | payer OTHER, SELFPAY ==
--- NOTE | 2023-03-31 13:07 | A.OFFVIS_ITS ---
Intake Vital Signs 03/31/23 13:08 Height 5 ft 11 in Weight 217 lb 2.485 oz BMI 30.3 BP 118/67 Blood Pressure Location Rt brachial Position Sitting Pulse 88 Pulse Source Doppler Pulse Oximetry (%) 97 Oxygen Delivery Method Room Air Intake Visit Reasons: cough Allergies cat dander [cats] Allergy (Verified 03/31/23 13:13) Sneezing pollen extracts Allergy (Verified 03/31/23 13:13) Sneezing HPI cough HPI Details 37-year-old gentleman, former 5 pack-yea r smoker, quit 2022, with underlying HIV on HAART and Bactrim prophylaxis, also asthma since childhoods referred for evaluation of his pulmonary concerns. Patient states that he never been intubated for asthma that his symptoms suboptimally controlled at this time, so that he requires to use albuterol several times a day and sometimes at night. He does complain of multiple environmental allergies. He also complains of postnasal drip. Patient does have multiple first-degree relatives with asthma. He denies exposure to industrial dusts. After the last office visit symptoms much better controlled with initiation of Breo, however it has to be changed to QVAR secondary to interaction with HAART. Immunologic studies shows significant allergic component. Denies recent exacerbations. [facility] Medical History (Updated 02/19/23 @ 14:21 by Rodolfo Walden MD) Asthma History of HIV infection Social History Alcohol intake: never Patient Tobacco Use Status: Former Tobacco user Tobacco use type: Cigarette Cigarettes Per Day: 7 Years Smoked: started at 19 Substance Use Type: Marijuana Review of Systems Const Denies daytime sleepiness, Denies excessive sweating, Denies fatigue, Denies fever(s), Denies lethargy, Denies malaise, Denies night sweats, Denies snoring and Denies weight loss Eyes Denies blurry vision and Denies itchy eyes ENT Denies nasal congestion, Denies post nasal drip, Denies sinus pain, Denies sinus pressure and Denies other ( Thrush) Card Denies chest pain, Denies pedal edema, Denies dyspnea, Denies orthopnea and Denies paroxysmal nocturnal dyspnea Resp Denies cough, Denies hemoptysis, Denies excessive phlegm production, Denies dyspnea, Denies snoring and Denies wheezing GI Denies abdominal pain and Denies heartburn Musc Denies myalgias, Denies arthralgias and Denies joint swelling Skin/Breast Denies rash Neuro Denies memory loss and Denies seizure-like activity Psych Denies abnormal sleep pattern, Denies anxiety and Denies memory loss Endo Denies excessive sweating, Denies fatigue and Denies heat intolerance Ernesto/Lymph Denies easy bruising Aller/Immun Denies itchy eyes, Denies seasonal rhinorrhea and Denies wheezing Physical Exam Vital Signs: Last Vital Signs Pulse 88 03/31/23 13:08 BP 118/67 03/31/23 13:08 Pulse Ox 97 03/31/23 13:08 Oxygen Delivery Method Room Air 03/31/23 13:08 BMI result Body Mass Index 30.3 Const General: no acute distress and alert Nutritional Appearance: not obese Orientation/consciousness: Other orientation findings ( oriented) HEENT Head: Yes atraumatic Eyes General: appearance normal, both eyes and all related structures Sclerae: sclerae normal EOM: EOMs intact bilaterally Neck Neck: Yes supple Lymphatic: no lymphadenopathy noted Resp Effort & Inspection: normal respiratory effort and no use of accessory muscles Auscultation: clear to auscultation bilaterally Cardio Rate: regular rate Rhythm: regular rhythm Heart sounds: no gallops, no murmurs and no rubs Skin General skin exam: other ( warm) Extrem General: No clubbing, No cyanosis and No edema Assessment & Plan Assessment & Plan (1) Asthma: Code(s): J45.909 - Unspecified asthma, uncomplicated Plan: Significantly improved control after starting inhaled corticosteroid now on QVAR and albuterol. Continue current regimen. (2) Environmental allergies: Code(s): Z91.09 - Other allergy status, other than to drugs and biological substances Plan: Improved with nasal ipratropium. Continue ipratropium and Singulair. Results for immunologic workup reviewed, patient does have significant allergic component. If his symptoms stop being controlled on inhaled corticosteroid, will consider Dupixent. Coding Level of Care Code Est Pt Level 4 (00932) Diagnoses Asthma J45.909 Environmental allergies Z91.09
[2023-03-31 13:08] VITALS: BP 118/67; PULSE 88; O2SAT 97; BMI 30.3
== END 2023-03-31 13:25 | disposition home or self-care (01) ==
PROVIDERS: PCP Internal Medicine Infectious Disease; Visit Provider Internal Medicine Pulmonary Disease
DX: J45.909 Unspecified asthma, uncomplicated (principal); Z91.09 Other allergy status, other than to drugs and biological substances
CPT/HCPCS: 99214

== ENCOUNTER → 2023-03-31 13:06 | Outpatient (BNVA) | payer OTHER, SELFPAY | PROVIDERS: PCP Internal Medicine Infectious Disease; Visit Provider Internal Medicine Pulmonary Disease | DX: J45.909 Unspecified asthma, uncomplicated (principal); Z91.09 Other allergy status, other than to drugs and biological substances | CPT/HCPCS: 99212 ==

== ENCOUNTER 2023-05-17 22:51 | Emergency (ER) | payer OTHER, SELFPAY ==
[2023-05-17 22:57] VITALS: BP 130/87; PULSE 82; RESP 14; TEMP 36.7; O2SAT 94; BMI 28.7
[2023-05-18 05:08] VITALS: BP 125/85; PULSE 60; RESP 16; O2SAT 97
[2023-05-18 05:32] LABS: Amphetamine Screen Urine POSITIVE (Not Detect); Barbiturates, Urine Not Detected (Not Detect); Benzodiazepines Screen Urine Not Detected (Not Detect); Cannabinoid Screen Urine POSITIVE (Not Detect); Cocaine Screen Urine Not Detected (Not Detect); Fentanyl, urine Not Detected (Not Detect); Opiate Screen Urine Not Detected (Not Detect); Phencyclidine Screen Urine Not Detected (Not Detect)
--- NOTE | 2023-05-18 06:52 | ED_ITS ---
HPI - Medical Clearance General Chief complaint: Medical Clearance Stated complaint: medical clearance Time Seen by Provider: 05/18/23 06:44 Source: patient Mode of arrival: ambulatory Limitations: no limitations History of Present Illness HPI Narrative: Patient is a 37 year old assigned male at with a history of asthma presenting to the emergency department today requesting medical clearance to go into a program. Patient states that he needs medical clearance in order to return back to [facility]. Patient denies any dizziness, lightheadedness, abdominal pain, nausea, vomiting, fever, chills, blurry vision, double vision, loss of vision, chest pain, difficulty breathing, shortness of breath, back pain, night sweats, pain with urination, increased urinary frequency, increased urinary urgency, blood in his urine or stool, syncope or a near syncopal episode, recent trauma or falls, bowel incontinence, bladder incontinence, bowel retention, bladder retention, or any other co mplaints at this time. MD complaint: medical clearance requested Related Information Home Medications ?Medication ?Instructions ?Recorded ?Confirmed amlodipine 5 mg tablet 5 mg PO DAILY 10/18/22 10/19/22 amoxicillin 875 mg-potassium 1 tab PO BID 10/18/22 10/19/22 clavulanate 125 mg tablet biotin 5 mg capsule 5 mg PO DAILY 10/18/22 10/19/22 cetirizine 10 mg tablet 10 mg PO DAILY 10/18/22 10/19/22 darunavir 800 mg-cob 150 1 tab PO DAILY 10/18/22 10/19/22 mg-emtricit 200 mg-tenofo alafen 10 mg tablet (Symtuza) montelukast 10 mg tablet 10 mg PO BEDTIME 10/18/22 10/19/22 prazosin 1 mg capsule 1 mg PO BEDTIME 10/18/22 10/19/22 sulfamethoxazole 800 1 tab PO DAILY 10/18/22 10/19/22 mg-trimethoprim 160 mg tablet (Bactrim DS) trazodone 100 mg tablet 100 mg PO BEDTIME 10/18/22 10/19/22 Previous Rx's ?Medication ?Instructions ?Recorded albuterol sulfate 2.5 mg/3 mL 2.5 mg (3 mL) inhalation Q4-6H PRN 10/18/22 (0.083 %) solution for nebulization shortness of breath or wheezing #75 mL ipratropium bromide 42 mcg (0.06 2 spray intranasal TID 30 days #15 02/19/23 %) nasal spray mL beclomethasone dipropionate 80 1 inh inhalation BID 30 days #10.6 03/09/23 mcg/actuation HFA breath activated grams aerosol albuterol sulfate 90 mcg/actuation 2 puff inhalation Q4-6H PRN 04/27/23 aerosol inhaler shortness of breath or wheezing #8.5 grams Allergies Allergy/AdvReac Type Severity Reaction Status Date / Time cat dander [cats] Allergy Sneezing Verified 05/17/23 23:00 pollen extracts Allergy Sneezing Verified 05/17/23 23:00 Review of Systems Constitutional: Constitutional: Reports no additional constitutional complaints, Denies chills, Denies fever(s) and Denies night sweats Eyes: Eyes: Reports no additional eye complaints, Denies blurry vision, Denies change in vision, Denies diplopia, Denies eye discharge, Denies loss of vision and Denies eye pain ENT: Denies dizziness Cardiovascular: Cardiovascular: Reports no additional cardiovascular com plaints, Denies chest pain, Denies lightheadedness, Denies Loss of Consciousness and Denies dyspnea Respiratory: Respiratory: Reports no additional respiratory complaints and Denies dyspnea Gastrointestinal: Gastrointestinal: Reports no additional gastrointestinal complaints, Denies abdominal pain, Denies melena, Denies hematochezia, Denies change in bowel habits and Denies change in stool character Genitourinary: Genitourinary: Reports no additional male genitourinary complaints, Denies hematuria, Denies oliguria, Denies difficulty urinating, Denies dysuria, Denies urinary frequency, Denies urinary hesitancy, Denies urinary incontinence and Denies urinary urgency Musculoskeletal: Musculoskeletal: Reports no additional musculoskeletal complaints, Denies numbness and Denies tingling Neurologic: Denies dizziness, Denies loss of vision, Denies numbness and Denies tingling Psychiatric: Psychiatric: Reports no additional psychiatric complaints Endocrine: Endocrine: Reports no additional endocrine complaints Hematologic/Lymphatic: Hematologic/Lymphatic: Reports no additional hematologic/lymphatic complaints Allergic/Immunologic: Allergic/Immunologic: Reports no additional allergic/immunologic complaints PMFSH Past Medical History Attestation statement: The following information was validated with the patient. Source: old records reviewed and nursing notes reviewed Medical History Asthma History of HIV infection Social History Social History Alcohol intake: never Patient Tobacco Use Status: Former Tobacco user Tobacco use type: Cigarette Cigarettes Per Day: 7 Years Smoked: started at 19 Smoked in Last 30 Days: Yes Substance Use Type: Amphetamines Advance Directives: No Advance Directives Information Provided: No Physical Exam Vital Signs: Vital Signs: Last Vital Signs Temp 97.9 F 05/18/23 07:14 Pulse 57 05/18/23 07:14 Resp 15 05/18/23 07:14 BP 122/87 05/18/23 07:14 Pulse Ox 97 05/18/23 07:14 O2 Del Method Room Air 05/18/23 07:14 BMI result Body Mass Index 28.7 Const: General: cooperative, no acute distress, alert and awake Nutritional Appearance: well nourished Orientation/consciousness: patient oriented x3 Limitations: no limitations HEENT: Head: Yes normal to inspection and Yes atraumatic Ears: hearing grossly normal bilaterally and external ears normal General nose exam: Normal external nose present, no nasal discharge noted and no epistaxis Face and sinus: Yes normal facial exam, No abrasion and No laceration Mouth: Normal oral and palatal mucosa present, no drooling and no muffled voice Eyes: General: appearance normal, both eyes and all related structures Periorbital: periorbital findings normal Eyelids: Yes eyelids normal Conjunctivae: conjunctivae normal Pupils: Equal, round and reactive pupils present EOM: EOMs intact bilaterally Neck: Neck: Yes normal visual inspection, Yes full ROM and Yes no lymphadenopathy Chest: Chest palpation & inspection: normal inspection of the chest Resp: Effort & Inspection: normal respiratory effort and able to speak in complete sentences GI: Inspection: Yes normal to inspection Neuro: General: patient oriented x3 and moves all extremities Cranial nerves: Yes Equal, round and reactive pupils present Cognition (Neuro): normal cognition Motor exam (neuro): 5/5 motor strength present throughout Sensory Exam: Normal double simultaneous stimulation for sensation Coordination: [id number] test normal Extrem: General: Yes normal to inspection, Yes full ROM and Yes capillary re fill normal Psych: Appearance: grossly normal Mental Status: mental status grossly normal Affect: normal affect Attitude: cooperative Thought process: Normal thought process present Thought content: Normal thought content present Insight: Good insight present (Psych) Medical Decision Making Medical Decision Making [facility] Narrative: Patient is a 37 year old assigned male at with a history of asthma presenting to the emergency department today for medical clearance. Patient's physical exam was unremarkable. Patient's urine drug screen was positive for amphetamines and marijuana. I explained my physical exam findings as well as all test results to the patient. I answered all questions asked by the patient. I stressed the importance of the patient taking his medication as prescribed. I stressed the importance of the patient following up with his primary care provider. I stressed the importance of the patient returning to the emergency department immediately if he were to develop any dizziness, shortness of breath, difficulty breathing, chest pain, blurry vision, loss of vision, nausea, vomiting, abdominal pain, fever, chills, back pain, or any other complaints. Patient verbalized agreement and understanding with this treatment plan and discharge. Differential Diagnosis Differential Diagnoses: The differential diagnosis associated with the presentation includes Normal examination Medical clearance Admission/Observation Consideration of admission/observation: Escalation of care including admission/observation considered Patient would have been admitted to the hospital had his work up had any findings where hospital admission was appropriate and his clinical presentation warranted hospital admission. Lab Data [facility] Lab Attestation statement: I reviewed the patient's lab results. My interpretation of these results are in the [facility] Rationale portion of this note. Labs: Lab Results 05/18/23 Range/Units 05:11 Urine Opiates Screen Not Detected (Not Detect) Urine Fentanyl Screen Not Detected (Not Detect) Ur Barbiturates Screen Not Detected (Not Detect) Ur Phencyclidine Scrn Not Detected (Not Detect) Ur Amphetamines Screen POSITIVE H (Not Detect) U Benzodiazepines Scrn Not Detected (Not Detect) Urine Cocaine Screen Not Detected (Not Detect) U Marijuana (THC) Screen POSITIVE H (Not Detect) Discharge Plan Discharge Clinical Impression: Normal exam Patient Disposition: Home, Self-Care Instructions: Normal Exam (ED) Additional Instructions: Follow up with your primary care provider. Return to the emergency department immediately if you develop any dizziness, shortness of breath, difficulty breathing, chest pain, blurry vision, loss of vision, nausea, vomiting, abdominal pain, fever, chills, back pain, or any other complaints. Prescriptions: No Action beclomethasone dipropionate 80 mcg/actuation HFA aerosol breath activated 1 inh inhalation BID 30 Days Qty: 10.6 6RF albuterol sulfate 90 mcg/actuation HFA aerosol inhaler 2 puff inhalation Q4-6H PRN (Reason: shortness of breath or wheezing) Qty: 8.5 6RF cetirizine 10 mg tablet 10 mg PO DAILY prazosin 1 mg capsule 1 mg PO BEDTIME amlodipine 5 mg tablet 5 mg PO DAILY trazodone 100 mg tablet 100 mg PO BEDTIME montelukast 10 mg tablet 10 mg PO BEDTIME Symtuza [id number] mg tablet 1 tab PO DAILY sulfamethoxazole-trimethoprim [Bactrim DS] 800-160 mg Tablet 1 tab PO DAILY biotin 5 mg Capsule 5 mg PO DAILY amoxicillin-pot clavulanate 875-125 mg Tablet 1 tab PO BID Rx Instructions: prescribed for 7 days, started on 10/16/22 albuterol sulfate 2.5 mg /3 mL (0.083 %) solution for nebulization 2.5 mg inhalation Q4-6H PRN (Reason: shortness of breath or wheezing) Qty: 75 0RF ipratropium bromide 42 mcg (0.06 %) spray,non-aerosol 2 spray intranasal TID 30 Days Qty: 15 6RF Rx Instructions: administer into each nostril Referrals: [facility] [place] Family Medicine [Provider Group] (Call to establish and follow up with a primary care provider. If you already have a primary care provider, please follow up with them.) [facility] [place] [facility] [Provider Group] [facility] [place] [facility] [Provider Group] Interventions: ED Discharge Assessment Last Done: 05/18/23 07:14 Discharge Date/Time: 05/18/23 07:15 Print Language: Sammarinese
[2023-05-18 07:13] VITALS: BP 122/87; PULSE 57; RESP 15; TEMP 36.6; O2SAT 97
[2023-05-18 07:14] VITALS: BP 122/87; PULSE 57; RESP 15; TEMP 36.6; O2SAT 97
== END 2023-05-18 07:15 | disposition home or self-care (01) ==
PROVIDERS: Emergency Provider Emergency Medicine; PCP Internal Medicine Infectious Disease
DX: Z02.2 Encounter for examination for admission to residential institution (principal); J45.909 Unspecified asthma, uncomplicated
CPT/HCPCS: 80307; 99284

== ENCOUNTER 2023-06-24 14:57 | Outpatient (REF) | payer OTHER, SELFPAY ==
[2023-06-26 14:44] LABS: HIV RNA PCR Qn Copies <20 DETECTED copies/mL (NOT DETECTED); HIV RNA PCR Qn Log Copies <1.30 DETECTED (NOT DETECTED)
== END 2023-06-24 14:58 | disposition home or self-care (01) ==
LOC: HO.LAB 14:57
PROVIDERS: Visit Provider Internal Medicine Infectious Disease
DX: B20 Human immunodeficiency virus [HIV] disease (principal)
CPT/HCPCS: 36415; 87536

== ENCOUNTER 2023-06-24 22:18 | Emergency (ER) | payer OTHER, SELFPAY ==
[2023-06-24 22:26] VITALS: BP 117/70; PULSE 95; RESP 22; TEMP 37; O2SAT 92; BMI 29.3
[2023-06-24] MEDS: methylPREDNISolone Sod Succ 125 MG/2 ML VIAL IVPUSH (22:51)
[2023-06-24] MEDS: Magnesium Sulfate/H2O 2 GM/50 ML PIGGYBACK IV (22:52)
--- NOTE | 2023-06-24 22:54 | PC.NURSE ---
pt from home, ambulatory, respirations even and unlabored, pt noted to have expiratory wheezing. pt reports cough x1 week but reports just an hour ago he developed wheezing. pt able to speak in full, clear sentences. pt denies chest pain, n/v/d. 18G placed in right ac, pt medicated per apr. respiratory at bediside.
[2023-06-24] MEDS: Albuterol/Iprat 2.5/0.5MG 3 ML AMPUL.NEB INHALE ×2 (22:58→23:28)
--- NOTE | 2023-06-24 23:37 | ED_ITS ---
HPI - Asthma General Chief Complaint: Asthma Stated Complaint: pt states needs nebulizer treatment Time Seen by Provider: 06/24/23 22:36 Source: patient Mode of arrival: ambulatory Limitations: no limitations History of Present Illness HPI Narrative: Patient comes to the emergency room complaining of an asthma exacerbation. Patient states that he started wheezing approximately 1 hour ago. Patient used his albuterol pump with no relief. Patient denies history of COPD. Patient states that for couple of days he has been having runny nose. Patient denies fever chills, occasional episodes of coughing throughout the day. Related Data Home Medications ?Medication ?Instructions ?Recorded ?Confirmed amlodipine 5 mg tablet 5 mg PO DAILY 10/18/22 10/19/22 amoxicillin 875 mg-potassium 1 tab PO BID 10/18/22 10/19/22 clavulanate 125 mg tablet biotin 5 mg capsule 5 mg PO DAILY 10/18/22 10/19/22 cetirizine 10 mg tablet 10 mg PO DAILY 10/18/22 10/19/22 darunavir 800 mg-cob 150 1 tab PO DAILY 10/18/22 10/19/22 mg-emtricit 200 mg-tenofo alafen 10 mg tablet (Symtuza) montelukast 10 mg tablet 10 mg PO BEDTIME 10/18/22 10/19/22 prazosin 1 mg capsule 1 mg PO BEDTIME 10/18/22 10/19/22 sulfamethoxazole 800 1 tab PO DAILY 10/18/22 10/19/22 mg-trimethoprim 160 mg tablet (Bactrim DS) trazodone 100 mg tablet 100 mg PO BEDTIME 10/18/22 10/19/22 Previous Rx's ?Medication ?Instructions ?Recorded albuterol sulfate 2.5 mg/3 mL 2.5 mg (3 mL) inhalation Q4-6H PRN 10/18/22 (0.083 %) solution for nebulization shortness of breath or wheezing #75 mL ipratropium bromide 42 mcg (0.06 2 spray intranasal TID 30 days #15 02/19/23 %) nasal spray mL beclomethasone dipropionate 80 1 inh inhalation BID 30 days #10.6 03/09/23 mcg/actuation HFA breath activated grams aerosol albuterol sulfate 90 mcg/actuation 2 puff inhalation Q4-6H PRN 04/27/23 aerosol inhaler shortness of breath or wheezing #8.5 grams albuterol sulfate 2.5 mg/3 mL 2.5 mg (3 mL) inhalation Q4-6H PRN 06/25/23 (0.083 %) solution for nebulization shortness of breath or wheezing #75 mL albuterol sulfate 90 mcg/actuation 2 puff inhalation Q4-6H PRN 06/25/23 aerosol inhaler shortness of breath or wheezing #8.5 grams prednisone 50 mg tablet 50 mg PO DAILY #4 tabs 06/25/23 Allergies Allergy/AdvReac Type Severity Reaction Status Date / Time cat dander [cats] Allergy Sneezing Verified 06/24/23 22:28 pollen extracts Allergy Sneezing Verified 06/24/23 22:28 Review of Systems Review of Systems: Constitutional : No Weight loss, No Fever, No Chills, No Night Sweats, No Fatigue, No Malaise ENT/Mouth : No Hearing loss, No Ear Pain, No Nasal Congestion, No Sinus Pain, No Hoarseness, No sore throat, No Rhinorrhea, No Swallowing Difficulty Eyes: No Eye Pain, No Swelling, No Redness, No Foreign Body, No Discharge, No Vision Changes Cardiovascular : No Chest Pain, No SOB, No Dyspnea on Exertion, No Orthopnea, No Edema, No Palpitations Respiratory : Mild Cough, No Sputum, complaining of Wheezing, No Smoke Exposure, No Dyspnea Gastrointestinal : No Nausea, No Vomiting, No Diarrhea, No Constipation, No abdominal Pain, No Hematochezia, No Melena Genitourinary : no irregular bleeding, No Dysuria, No Urinary Frequency, No Hematuria, No Urinary Incontinence, No Urgency, No Flank Pain, No Urinary Flow Changes, No Hesitancy Musculoskeletal : No joint pain, No Myalgias, No Joint Swelling Skin : No Skin Lesions, No rash Neuro : No Weakness, No Numbness, No Paresthesias, No Loss of Consciousness, No Dizziness, No Headache Psych : No Anxiety/Panic, No Depression, No SI/HI/AH/VH, No Social Issues, Heme/Lymph: No Bruising, No Bleeding,No Lymphadenopathy Endocrine : No Polyuria, No Polydipsia, No Temperature Intolerance PMFSH Past Medical History Medical History Asthma History of HIV infection Social History Social History Alcohol intake: never Patient Tobacco Use Status: Former Tobacco user Tobacco use type: Cigarette Cigarettes Per Day: 7 Years Smoked: started at 19 Smoked in Last 30 Days: Yes Use of substances other than those prescribed or required for medical reasons: Yes Substance Use Type: Marijuana Substance Use Frequency: Daily Advance Directives: No Advance Directives Information Provided: Yes Do you have a plan to hurt others: No Plan Physical Exam Vital Signs: Vital Signs: Last Vital Signs Temp 97.9 F 06/25/23 01:07 Pulse 89 06/25/23 01:07 Resp 18 06/25/23 01:07 BP 115/59 L 06/25/23 01:07 Pulse Ox 94 06/25/23 01:07 O2 Del Method Room Air 06/25/23 01:07 BMI result Body Mass Index 29.3 Const: Other: Appearance: Alert. Oriented X3. No acute distress. Eyes: Pupils equal, round and reactive to light. ENT: Pharynx normal. Neck: Normal inspection. Neck supple. No lymph nodes noted. No crepitus CVS: Normal heart rate and rhythm. Pulses normal. Normal S1 and S2 Respiratory: Wheezing bilaterally, oxygen saturation 88% on room air. Abdomen: Soft and nontender. No rigidity. No distention. Skin: Skin warm and dry. Normal skin color. Normal skin turgor. Extremities: No lower extremity edema. No Lacerations. No Rash Neuro: Oriented X 3. No motor deficit. No sensory deficit. Moving all extremities. No slurred speech. CN 2 through 12 grossly intact Psych: calm, cooperative, normal affect Course Course Course Narrative: -patient put on oxygen, nebulization treatment, Solu-Medrol, magnesium -patient's oxygen saturation improved to 95%. Patient's lung exam improved, moving air much better. Patient will receive 1 more dose of albuterol and then will reassess. Overall, patient states that he feels much better Medications Administered Discontinued Medications Generic Name Dose Route Start Last Admin Trade Name Freq PRN Reason Stop Dose Admin Albuterol Sulfate 5 mg 06/24/23 23:41 06/24/23 23:45 Albuterol Sulfate (0.083%) 2.5 Mg/3 Ml Vial.Neb INHALE 06/24/23 23:42 5 mg ONCE ONE Administration Albuterol/Ipratropium 3 ml 06/24/23 22:53 06/24/23 22:58 Albuterol/Iprat 2.5/0.5mg 3 Ml Ampul.Neb INHALE 06/24/23 22:54 3 ml ONCE ONE Administration Albuterol/Ipratropium 3 ml 06/24/23 23:23 06/24/23 23:28 Albuterol/Iprat 2.5/0.5mg 3 Ml Ampul.Neb INHALE 06/24/23 23:24 3 ml ONCE ONE Administration Magnesium Sulfate 2 gm in 50 mls @ 25 mls/hr 06/24/23 22:40 06/24/23 22:52 Magnesium Sulfate/H2o IV 06/25/23 00:39 25 mls/hr ONCE ONE Administration Methylprednisolone Sodium Succinate 125 mg 06/24/23 22:40 06/24/23 22:51 Methylprednisolone Sod Succ 125 Mg/2 Ml Vial IVPUSH 06/24/23 22:41 125 mg ONCE ONE Administration Medical Decision Making Medical Decision Making MDM Narrative: After couple of nebulization treatments, Solu-Medrol, magnesium, patient feeling much better. -on physical exam prior to discharge, clear lung sounds, oxygen saturation 94%. Ambulation trial around the emergency room with no desaturation, patient has no wheezing or shortness of breath. Patient feels ready for discharge Differential Diagnosis Differential Diagnoses: The differential diagnosis associated with the presentation includes (Asthma, viral illness) Admission/Observation Consideration of admission/observation: Escalation of care including admission/observation considered (Urine patient's initial presentation, admission/observation was considered) Critical Care Time Critical Care Time Critical Care Time: Yes Total Critical Care Time: 45 Attestation: I have personally provided critical care time. Time includes review of lab data, radiology results, discussion with consultants, and monitoring for potential decompensation. Intervention performed as documented. Discharge Plan Discharge Clinical Impression: Asthma with acute exacerbation Patient Disposition: Home, Self-Care Instructions: Asthma (ED) Additional Instructions: Please follow-up with your primary care physician tomorrow. If you have any worsening or new symptoms, please return to the emergency room or call 911 Prescriptions: New prednisone 50 mg tablet 50 mg PO DAILY Qty: 4 0RF albuterol sulfate 90 mcg/actuation HFA aerosol inhaler 2 puff inhalation Q4-6H PRN (Reason: shortness of breath or wheezing) Qty: 8.5 1RF albuterol sulfate 2.5 mg /3 mL (0.083 %) solution for nebulization 2.5 mg inhalation Q4-6H PRN (Reason: shortness of breath or wheezing) Qty: 75 0RF No Action beclomethasone dipropionate 80 mcg/actuation HFA aerosol breath activated 1 inh inhalation BID 30 Days Qty: 10.6 6RF albuterol sulfate 90 mcg/actuation HFA aerosol inhaler 2 puff inhalation Q4-6H PRN (Reason: shortness of breath or wheezing) Qty: 8.5 6RF cetirizine 10 mg tablet 10 mg PO DAILY prazosin 1 mg capsule 1 mg PO BEDTIME amlodipine 5 mg tablet 5 mg PO DAILY trazodone 100 mg tablet 100 mg PO BEDTIME montelukast 10 mg tablet 10 mg PO BEDTIME Symtuza [phone] mg tablet 1 tab PO DAILY sulfamethoxazole-trimethoprim [Bactrim DS] 800-160 mg Tablet 1 tab PO DAILY biotin 5 mg Capsule 5 mg PO DAILY amoxicillin-pot clavulanate 875-125 mg Tablet 1 tab PO BID Rx Instructions: prescribed for 7 days, started on 10/16/22 albuterol sulfate 2.5 mg /3 mL (0.083 %) solution for nebulization 2.5 mg inhalation Q4-6H PRN (Reason: shortness of breath or wheezing) Qty: 75 0RF ipratropium bromide 42 mcg (0.06 %) spray,non-aerosol 2 spray intranasal TID 30 Days Qty: 15 6RF Rx Instructions: administer into each nostril Stand Alone Forms: Work/School Release Print Language: Azerbaijani
[2023-06-24] MEDS: Albuterol Sulfate (0.083%) 2.5 MG/3 ML VIAL.NEB 5 MG INHALE (23:45)
[2023-06-24 23:47] VITALS: PULSE 89; RESP 18; O2SAT 95
[2023-06-25 01:07] VITALS: BP 115/59; PULSE 89; RESP 18; TEMP 36.6; O2SAT 94
--- NOTE | 2023-06-25 01:17 | MHC.EDTECH ---
PATIENT WAS AMBULATED.PATIENTS O2 WAS 94 ,IL 100 AND RESPIRATIONS 18 PRIOR TO AMBULATION TRIAL.PATIENTS O2 DROPPED TO 91 AND IL INCREASED TO 109 RESPIRATIONS 18.PATIENT INDICATED FEELING BETTER AFTER BREATHING TREATMENT.
[2023-06-25 01:37] VITALS: BP 115/59; PULSE 89; RESP 18; TEMP 36.6; O2SAT 94
== END 2023-06-25 01:38 | disposition home or self-care (01) ==
PROVIDERS: Emergency Provider Emergency Medicine; PCP Internal Medicine Infectious Disease
DX: J45.901 Unspecified asthma with (acute) exacerbation (principal); R09.89 Other specified symptoms and signs involving the circulatory and respiratory systems
CPT/HCPCS: 94640; 96365; 96366; 96375; 99285; J2919; J3475

== ENCOUNTER 2023-07-16 09:10 | Emergency (ER) | payer OTHER, SELFPAY ==
[2023-07-16] VITALS (10 sets, daily range): BP systolic 123–145; BP diastolic 74–90; PULSE 56–118; RESP 16–24; TEMP 36.2–36.6; O2SAT 93–98; BMI 25.1
--- NOTE | ~2023-07-16 | XR_ITS ---
EXAMINATION: XR CHEST CLINICAL INFORMATION: Shortness of breath and chest pain COMPARISON: Previous chest x-ray is recent November 2022 TECHNIQUE: 2 views of the chest were obtained. FINDINGS: No significant abnormality is noted involving the heart, lungs, mediastinum, bony thorax or soft tissues. XR/XR chest 2V IMPRESSION: Unremarkable examination.
--- NOTE | 2023-07-16 09:11 | ED_ITS ---
HPI - SOB/Dyspnea General Chief Complaint: General Medical Stated Complaint: ASTHMA CRISIS Time Seen by Provider: 07/16/23 09:11 Source: patient and EMS Mode of arrival: EMS Limitations: no limitations History of Present Illness ED Provider: Dr. Joaquín Medina HPI Narrative: 37-year-old male with a history of asthma, environmental allergies, crystal meth use disorder who presents emergency department for evaluation of shortness of breath and relapse on his crystal meth use. The patient states that he woke up this morning at 07:00 hours and he felt short of breath. He states that he feels like he has having an asthma exacerbation used his inhaler 10 times with no relief his symptoms. The patient states he does have chest tightness. He has a cough which is productive of scant clear sputum. He denied fever, chills, nausea, vomiting, myalgias arthralgias. He states that his shortness of breath was getting worse therefore he called an ambulance was brought to emergency department for evaluation. The patient states that he did have a period of sobriety but 3 weeks prior he started using crystal meth again. He was in the [facility] however he has been AWAL for 3 weeks and was kicked out of the program. He states that he has been using nonstop and he was last use was yesterday. He is requesting evaluation for detox treatment when he is medically cleared. He states he does smoke marijuana daily. Patient does smoke cigarettes, quarter pack per day times 18 years but he stop smoking 3 weeks prior. He states he was hospitalized 1 week prior and [facility] for an asthma exacerbation he spent 3 days in the hospital. He states he has never been intubated for an asthma exacerbation. Related Data Home Medications ?Medication ?Instructions ?Recorded ?Confirmed amlodipine 5 mg tablet 5 mg PO DAILY 10/18/22 10/19/22 amoxicillin 875 mg-potassium 1 tab PO BID 10/18/22 10/19/22 clavulanate 125 mg tablet biotin 5 mg capsule 5 mg PO DAILY 10/18/22 10/19/22 cetirizine 10 mg tablet 10 mg PO DAILY 10/18/22 10/19/22 darunavir 800 mg-cob 150 1 tab PO DAILY 10/18/22 10/19/22 mg-emtricit 200 mg-tenofo alafen 10 mg tablet (Symtuza) montelukast 10 mg tablet 10 mg PO BEDTIME 10/18/22 10/19/22 prazosin 1 mg capsule 1 mg PO BEDTIME 10/18/22 10/19/22 sulfamethoxazole 800 1 tab PO DAILY 10/18/22 10/19/22 mg-trimethoprim 160 mg tablet (Bactrim DS) trazodone 100 mg tablet 100 mg PO BEDTIME 10/18/22 10/19/22 Previous Rx's ?Medication ?Instructions ?Recorded albuterol sulfate 2.5 mg/3 mL 2.5 mg (3 mL) inhalation Q4-6H PRN 10/18/22 (0.083 %) solution for nebulization shortness of breath or wheezing #75 mL ipratropium bromide 42 mcg (0.06 2 spray intranasal TID 30 days #15 02/19/23 %) nasal spray mL beclomethasone dipropionate 80 1 inh inhalation BID 30 days #10.6 03/09/23 mcg/actuation HFA breath activated grams aerosol albuterol sulfate 90 mcg/actuation 2 puff inhalation Q4-6H PRN 04/27/23 aerosol inhaler shortness of breath or wheezing #8.5 grams albuterol sulfate 2.5 mg/3 mL 2.5 mg (3 mL) inhalation Q4-6H PRN 06/25/23 (0.083 %) solution for nebulization shortness of breath or wheezing #75 mL albuterol sulfate 90 mcg/actuation 2 puff inhalation Q4-6H PRN 06/25/23 aerosol inhaler shortness of breath or wheezing #8.5 grams prednisone 50 mg tablet 50 mg PO DAILY #4 tabs 06/25/23 Allergies Allergy/AdvReac Type Severity Reaction Status Date / Time cat dander [cats] Allergy Sneezing Verified 07/16/23 09:17 pollen extracts Allergy Sneezing Verified 06/24/23 22:28 Review of Systems 2 Review of Systems: Yes all other systems are reviewed and are negative [facility] Past Medical History [facility] Narrative: Social history: He currently is living in a program called [facility]. He smokes a quarter pack of cigarettes per day times 18 years but he states he stopped 3 weeks ago. He does smoke marijuana daily. He states that he smokes crystal meth daily as well he last use yesterday. Medical History Asthma History of HIV infection Social History Social History Alcohol intake: never Patient Tobacco Use Status: Former Tobacco user Tobacco use type: Cigarette Cigarettes Per Day: 7 Years Smoked: started at 19 Smoked in Last 30 Days: Yes Use of substances other than those prescribed or required for medical reasons: Yes Substance Use Type: Methamphetamine Advance Directives: No Physical Exam 2 Vital Signs: Vital Signs: Last Vital Signs Temp 97.3 F 07/16/23 15:53 Pulse 88 07/16/23 15:53 Resp 20 07/16/23 15:53 BP 124/76 07/16/23 15:53 Pulse Ox 97 07/16/23 15:53 O2 Del Method Room Air 07/16/23 15:53 O2 Flow Rate 6 07/16/23 10:01 BMI result Body Mass Index 25.1 Vital signs revealed an elevated heart rate of 102 and an elevated blood pressure of 143/89 Exam: General: Awake, alert , anxious, he is tearful secondary to his using crystal meth over the last 3 weeks. Head: Normocephalic, atraumatic EENT: PERRL, Lids normal, sclera normal, conjunctiva normal, nose normal , ears normal, throat without erythema or exudates Neck: Supple, no adenopathy Lung: breath sounds symmetric, diffuse wheezing and rhonchi good inspiratory and expiratory flow Chest: symmetric movement, nontender Heart: regular rate and rhythm, normal S1, S2 no murmurs or rubs Abdomen: soft, non-tender, nondistended, normal bowel sounds Back: no vertebral tenderness, no CVAT Extremities: no deformities, moves all extremities symmetrically Neuro: Awake, alert, oriented, normal speech, cranial nerves intact, moves all extremities symmetrically Psych: Pleasant, cooperative Medications Administered Discontinued Medications Generic Name Dose Route Start Last Admin Trade Name Freq PRN Reason Stop Dose Admin Albuterol Sulfate 2.5 mg/ 0 mg 07/16/23 09:27 07/16/23 09:29 Albuterol/Ipratropium 3 ml INHALE 07/16/23 09:28 5 dose ONCE ONE Administration Albuterol Sulfate 2.5 mg/ 0 mg 07/16/23 09:42 07/16/23 09:45 Albuterol/Ipratropium 3 ml INHALE 07/16/23 09:43 5 dose ONCE ONE Administration Methylprednisolone Sodium Succinate 125 mg 07/16/23 09:26 07/16/23 09:58 Methylprednisolone Sod Succ 125 Mg/2 Ml Vial IVPUSH 07/16/23 09:27 125 mg ONCE ONE Administration Medical Decision Making Medical Decision Making MDM Narrative: 37-year-old male with a history of asthma, crystal meth use disorder, tobacco use disorder who presents emergency department for evaluation of shortness of breath and chest tightness which began at 07:00 hours this morning, patient states that it feels like an asthma exacerbation. The patient states that he was hospitalized for 3 days 1 week prior in the [facility]. He is currently living in a program called [facility]. He states that he has relapsed on his crystal meth use in his been using daily for the last 3 weeks. Used his albuterol inhaler 10 times today with no relief his symptoms. Vital signs revealed an elevated heart rate and elevated blood pressure. Lung exam revealed diffuse wheezing and rhonchi with good inspiratory and expiratory flow. Differential diagnosis: ?Includes but is not limited to asthma exacerbation, pneumonia, viral infection, anxiety, drug use disorder, myocardial infarction, myocardial ischemia, electrolyte abnormalities, anemia Following evaluation was ordered: CBC, CMP, troponin, lactic acid, ethanol level, drug screen urine, COVID-19, influenza, RSV chest x-ray two view, EKG Patient was initially treated with the following: Solu-Medrol 125 mg IV, bronchodilator protocol (albuterol 5 mg, ipratropium 0.5 mg nebulized) Course: 13:42 My interpretation patient's laboratory evaluation as follows: CBC was normal. CMP was normal. Patient's urine tox screen was positive for amphetamines and marijuana-patient misusing both of these substances. Alcohol level was below detectable limits. Troponin was detectable but not elevated at 7.4. He had a similar elevation 11/13/2022 at 7.8. Chest x-ray revealed no acute findings. Patient feels significantly better after the above treatment and his wheezing has resolved. Therefore the patient will be referred to the care team for help with his substance use disorder. 16:57 Start physician observation at 16:57 hours Patient did require a 2nd albuterol 5 mg and ipratropium 0.5 mg nebulizer and will remain on the bronchodilator protocol. The patient has not been evaluated by the care team and will require further observation here in the emergency department. At the end of my shift, the patient's care was turned over to my colleague, Dr. Munira Hurtado. Patient will remain in the emergency department emergency department until disposition can be determined or until patient's symptoms improve over time. Admission/Observation Consideration of admission/observation: Escalation of care including admission/observation considered Lab Data MDM Lab Attestation statement: I reviewed the patient's lab results. 07/16/23 09:52 07/16/23 09:52 Labs: Lab Results 07/16/23 Range/Units 09:52 WBC 3.7 L (4.8-10.8) X10*3/uL RBC 4.69 (4.60-5.80) X10*6/uL Hgb 14.8 (14.0-18.0) g/dl Hct 43.4 (42.0-52.0) % MCV 92.5 (80.0-98.0) fL MCH 31.6 (27.0-33.0) pg MCHC 34.1 (31.0-36.0) g/dl RDW 12.9 (11.0-16.0) % Plt Count 282 (160-400) X10*3/uL MPV 10.0 (9.4-12.4) fL Immature Gran % (Auto) 0.3 (0.0-0.4) % Neut % (Auto) 53.3 (45-73) % Lymph % (Auto) 22.5 (20-40) % Coles % (Auto) 11.0 (2-11) % Eos % (Auto) 12.6 H (0-4) % Baso % (Auto) 0.3 (0-2) % Lymph # (Auto) 0.8 L (1.2-4.9) X10*3/uL Coles # (Auto) 0.4 (0.1-1.2) X10*3/uL Eos # (Auto) 0.5 H (0.0-0.4) X10*3/uL Baso # (Auto) 0.0 (0.0-0.2) X10*3/uL Abs Immat Gran (auto) 0.01 (0.00-0.03) X10*3/uL Absolute Neuts (auto) 2.0 (2.0-8.3) x10*3/uL Absolute Nucleated RBC 0.000 (0.0-0.012) X10*3/uL Nucleated RBC % (auto) 0.0 (0.0-0.2) /100WBC APTT 35.0 (26.0-36.8) SEC Sodium 142 (135-145) mmol/L Potassium 3.8 (3.3-5.1) mmol/L Chloride 108 (96-108) mmol/L Carbon Dioxide 21 L (22-29) mmol/L Anion Gap 17 (12-20) BUN 14 (9-16) mg/dL Creatinine 1.23 (0.5-1.4) mg/dL Estim Creat Clear Calc 93.8 Estimated GFR > 60 Random Glucose 92 (60-115) mg/dL Lactic Acid 1.6 (0.5-2.0) mmol/L Calcium 9.2 D (8.4-10.2) mg/dL Total Bilirubin 0.2 (0.0-1.0) mg/dL AST 21 (5-37) U/L ALT 39 (0-40) U/L Alkaline Phosphatase 59 (39-117) U/L Total Protein 7.4 (6.5-8.0) g/dL Albumin 4.1 (3.5-5.0) g/dL Ethyl Alcohol < 10 mg/dL Independent Interpretation I performed an independent interpretation of an: EKG Interpretation: My interpretation patient's laboratory evaluation done at 10:10 hours is as follows: Sinus tachycardia with a rate of 117, inverted T-waves in 2, 3 and AVF and inverted T-waves V4 through V6 with Q-waves V1 through V3. No ST segment elevation, no ST segment depression. T-wave abnormalities were new compared to 11/13/2022 Chronic Conditions Patient?s care impacted by: Other (Asthma, substance use disorder (methamphetamine)) Discharge Plan Discharge Clinical Impression: Asthma with acute exacerbation, Methamphetamine abuse Patient Disposition: Still a Patient Additional Instructions: Your symptoms are consistent with an asthma exacerbation. Take prednisone 60 mg once a day for 5 days. Continue to use your albuterol inhaler 2 puffs every 4 hours as needed for shortness of breath. Follow-up with your doctor in 2 days. Please return to the emergency department if your symptoms get worse or if you develop any symptoms that are concerning to you. Prescriptions: No Action beclomethasone dipropionate 80 mcg/actuation HFA aerosol breath activated 1 inh inhalation BID 30 Days Qty: 10.6 6RF albuterol sulfate 90 mcg/actuation HFA aerosol inhaler 2 puff inhalation Q4-6H PRN (Reason: shortness of breath or wheezing) Qty: 8.5 6RF prednisone 50 mg tablet 50 mg PO DAILY Qty: 4 0RF albuterol sulfate 90 mcg/actuation HFA aerosol inhaler 2 puff inhalation Q4-6H PRN (Reason: shortness of breath or wheezing) Qty: 8.5 1RF albuterol sulfate 2.5 mg /3 mL (0.083 %) solution for nebulization 2.5 mg inhalation Q4-6H PRN (Reason: shortness of breath or wheezing) Qty: 75 0RF cetirizine 10 mg tablet 10 mg PO DAILY prazosin 1 mg capsule 1 mg PO BEDTIME amlodipine 5 mg tablet 5 mg PO DAILY trazodone 100 mg tablet 100 mg PO BEDTIME montelukast 10 mg tablet 10 mg PO BEDTIME Symtuza [phone] mg tablet 1 tab PO DAILY sulfamethoxazole-trimethoprim [Bactrim DS] 800-160 mg Tablet 1 tab PO DAILY biotin 5 mg Capsule 5 mg PO DAILY amoxicillin-pot clavulanate 875-125 mg Tablet 1 tab PO BID Rx Instructions: prescribed for 7 days, started on 10/16/22 albuterol sulfate 2.5 mg /3 mL (0.083 %) solution for nebulization 2.5 mg inhalation Q4-6H PRN (Reason: shortness of breath or wheezing) Qty: 75 0RF ipratropium bromide 42 mcg (0.06 %) spray,non-aerosol 2 spray intranasal TID 30 Days Qty: 15 6RF Rx Instructions: administer into each nostril Print Language: Iraqi
--- NOTE | 2023-07-16 09:26 | ECG_ITS ---
Test Reason : CHEST PAIN Blood Pressure : / mmHG Vent. Rate : 105 BPM Atrial Rate : 105 BPM P-R Int : 152 ms QRS Dur : 088 ms QT Int : 366 ms P-R-T Axes : 063 050 -22 degrees QTc Int : 483 ms Sinus tachycardia Possible Left atrial enlargement Anterior infarct , age undetermined T wave abnormality, consider lateral ischemia Abnormal ECG When compared with ECG of 13-NOV-2022 00:43, Anterior infarct is now Present ST no longer elevated in Anterior leads T wave inversion now evident in Anterolateral leads QT has lengthened Referred By: Joaquín Medina Electronically Signed By:SILVESTRE HENSON MD
[2023-07-16] MEDS: Albuterol Sulfate 2.5 MG, Albuterol/Iprat 2.5/0.5MG 3 ML 3 ML INHALE ×2 (09:29→09:45)
[2023-07-16 09:57] LABS: MANUAL DIFF FLAG NO
[2023-07-16] MEDS: methylPREDNISolone Sod Succ 125 MG/2 ML VIAL IVPUSH (09:58)
[2023-07-16 09:59] LABS: Basophils Percent Auto 0.3 % (0-2); Eosinophils Absolute Auto 0.5 X10*3/uL (0.0-0.4); Eosinophils Percent Auto 12.6 % (0-4); Hematocrit 43.4 % (42.0-52.0); Hemoglobin 14.8 g/dl (14.0-18.0); Imm Gran Abs Auto 0.01 X10*3/uL (0.00-0.03); Imm Gran Pct Auto 0.3 % (0.0-0.4); Lymphocytes Absolute Auto 0.8 X10*3/uL (1.2-4.9); Lymphocytes Percent Auto 22.5 % (20-40); Mean Corpuscular HGB Conc 34.1 g/dl (31.0-36.0); Mean Corpuscular Hemoglobin 31.6 pg (27.0-33.0); Mean Corpuscular Volume 92.5 fL (80.0-98.0); Monocytes Absolute Auto 0.4 X10*3/uL (0.1-1.2); Neutrophils Percent Auto 53.3 % (45-73); Platelet Count 282 X10*3/uL (160-400); Red Blood Count 4.69 X10*6/uL (4.60-5.80); Red Cell Distribution Width 12.9 % (11.0-16.0); White Blood Count 3.7 X10*3/uL (4.8-10.8)
--- NOTE | 2023-07-16 10:07 | PC.NURSE ---
Pt presents to ED via EMS for SOB and relapse of Meth. Pt reports his asthma has been bothering him for past couple of days, SOB with cough with white phlegm. Used inhaler with no relief. Also reports relapse of crystal meth yesterday, wants help with detox. Pt upset and crying over situation. Alert and oriented, breathing slightly elevated and labored, skin clammy. Wheezing bilat. Pt placed on bedside air sampling and monitoring. NSR. Denies pain, SI or HI.
--- NOTE | 2023-07-16 10:09 | PC.NURSE ---
Pt changed over by security, placed into safety clothing and belongings checked by security.
[2023-07-16 10:11] LABS: Lactic Acid 1.6 mmol/L (0.5-2.0)
[2023-07-16 10:19] LABS: Alanine Aminotransferase 39 U/L (0-40); Albumin Level 4.1 g/dL (3.5-5.0); Alkaline Phosphatase 59 U/L (39-117); Anion Gap 17 (12-20); Aspartate Amino Transferase 21 U/L (5-37); Bilirubin Total 0.2 mg/dL (0.0-1.0); Blood Urea Nitrogen 14 mg/dL (9-16); Calcium 9.2 mg/dL (8.4-10.2); Carbon Dioxide 21 mmol/L (22-29); Chloride 108 mmol/L (96-108); Creatinine Clr Calc Pharmacy 93.8; Estimated Glomerular Filt Rate > 60; Ethanol < 10 mg/dL; Glucose Random 92 mg/dL (60-115); Potassium 3.8 mmol/L (3.3-5.1); Sodium 142 mmol/L (135-145); Total Protein 7.4 g/dL (6.5-8.0)
--- NOTE | 2023-07-16 13:39 | PC.NURSE ---
Pt resting, denies any pain or complaints.
--- NOTE | 2023-07-16 17:12 | PC.NURSE ---
Pt denies any complaints of SOB or pain at this time. Resting comfortably in bed.
[2023-07-16 17:37] LABS: Amphetamine Screen Urine POSITIVE (Not Detect); Barbiturates, Urine Not Detected (Not Detect); Benzodiazepines Screen Urine Not Detected (Not Detect); Buprenorphine Scr Not Detected (Not Detect); Cannabinoid Screen Urine POSITIVE (Not Detect); Cocaine Screen Urine Not Detected (Not Detect); Fentanyl, urine Not Detected (Not Detect); Methadone Screen, Urine Not Detected (Not Detect); Opiate Screen Urine Not Detected (Not Detect); Oxycodone Screen Urine Not Detected (Not Detect); Phencyclidine Screen Urine Not Detected (Not Detect)
[2023-07-16 17:53] LABS: Influenza A PCR NEGATIVE (Negative); Influenza B PCR NEGATIVE (Negative); Resp Syncy Virus RNA Qual PCR NEGATIVE (Negative); SARS COV2 PCR INHOUSE NEGATIVE (Negative)
--- NOTE | 2023-07-16 19:00 | PC.NURSE ---
this rn assumed care of pt, pt resting in stretcher in [place], no acute distress noted. pt changed over, pt belongings at bedside per security.
--- NOTE | 2023-07-16 21:14 | PC.NURSE ---
report given to Yani RN in Pod.
--- NOTE | 2023-07-16 21:30 | PC.NURSE ---
IV access removed at this time.
--- NOTE | 2023-07-16 22:16 | PC.NURSE ---
pt discharged by , pt left without vitals and left without special educator papers.
== END 2023-07-16 22:18 | disposition home or self-care (01) ==
PROVIDERS: Emergency Medicine Emergency Medical Services; Emergency Provider Internal Medicine; PCP Internal Medicine Infectious Disease
DX: F19.10 Other psychoactive substance abuse, uncomplicated (principal); J45.901 Unspecified asthma with (acute) exacerbation; R06.02 Shortness of breath; Z79.899 Other long term (current) drug therapy; B20 Human immunodeficiency virus [HIV] disease; Z87.891 Personal history of nicotine dependence; Z03.818 Encounter for observation for suspected exposure to other biological agents ruled out
CPT/HCPCS: 0241U; 36415; 71046; 80053; 80307; 83605; 85025; 85730; 93005; 94640; 96374; 99284; 99285; J2919

== ENCOUNTER → 2023-07-16 09:26 | Outpatient (BNV) | payer OTHER, SELFPAY | PROVIDERS: Emergency Provider Emergency Medicine Emergency Medical Services; PCP Internal Medicine Infectious Disease; Visit Provider Internal Medicine Cardiovascular Disease | DX: R07.9 Chest pain, unspecified (principal); R00.0 Tachycardia, unspecified; R94.31 Abnormal electrocardiogram [ECG] [EKG] | CPT/HCPCS: 93010 ==

== ENCOUNTER 2023-11-07 00:12 | Emergency (ER) | payer OTHER, SELFPAY ==
[2023-11-07 00:18] VITALS: BP 140/66; BP 164/78; PULSE 103; PULSE 70; RESP 20; TEMP 36.8; O2SAT 95; O2SAT 97; BMI 30.9
--- NOTE | 2023-11-07 00:31 | PC.NURSE ---
pt biba from home, a&ox4, respirations even and unlabored. pt reporting onset of shortness of breath due to his asthma starting this morning, pt reports he does not have any inhalers at home. on ems arrival pt wheezing, pt given 2 duo nebs prior to arrival. pt reports relief from that. pt sinus tachy on tele 100-110bpm.
--- NOTE | 2023-11-07 00:47 | ED_ITS ---
HPI - Asthma General Chief Complaint: Asthma Stated Complaint: CONJESTION Time Seen by Provider: 11/07/23 00:33 Source: patient Mode of arrival: ambulatory Limitations: no limitations History of Present Illness ED Provider: sherin ZHOU Narrative: Patient's history of asthma been increasingly congested for last few days got worse today use to have nebulizer treatment before does not have any machine now tried inhaler prior to arrival still wheezing and congested no fever no chills Related Data Home Medications ?Medication ?Instructions ?Recorded ?Confirmed amlodipine 5 mg tablet 5 mg PO DAILY 10/18/22 10/19/22 amoxicillin 875 mg-potassium 1 tab PO BID 10/18/22 10/19/22 clavulanate 125 mg tablet biotin 5 mg capsule 5 mg PO DAILY 10/18/22 10/19/22 cetirizine 10 mg tablet 10 mg PO DAILY 10/18/22 10/19/22 darunavir 800 mg-cob 150 1 tab PO DAILY 10/18/22 10/19/22 mg-emtricit 200 mg-tenofo alafen 10 mg tablet (Symtuza) montelukast 10 mg tablet 10 mg PO BEDTIME 10/18/22 10/19/22 prazosin 1 mg capsule 1 mg PO BEDTIME 10/18/22 10/19/22 sulfamethoxazole 800 1 tab PO DAILY 10/18/22 10/19/22 mg-trimethoprim 160 mg tablet (Bactrim DS) trazodone 100 mg tablet 100 mg PO BEDTIME 10/18/22 10/19/22 Previous Rx's ?Medication ?Instructions ?Recorded albuterol sulfate 2.5 mg/3 mL 2.5 mg (3 mL) inhalation Q4-6H PRN 10/18/22 (0.083 %) solution for nebulization shortness of breath or wheezing #75 mL ipratropium bromide 42 mcg (0.06 2 spray intranasal TID 30 days #15 02/19/23 %) nasal spray mL beclomethasone dipropionate 80 1 inh inhalation BID 30 days #10.6 03/09/23 mcg/actuation HFA breath activated grams aerosol albuterol sulfate 90 mcg/actuation 2 puff inhalation Q4-6H PRN 04/27/23 aerosol inhaler shortness of breath or wheezing #8.5 grams albuterol sulfate 2.5 mg/3 mL 2.5 mg (3 mL) inhalation Q4-6H PRN 06/25/23 (0.083 %) solution for nebulization shortness of breath or wheezing #75 mL albuterol sulfate 90 mcg/actuation 2 puff inhalation Q4-6H PRN 06/25/23 aerosol inhaler shortness of breath or wheezing #8.5 grams prednisone 50 mg tablet 50 mg PO DAILY #4 tabs 06/25/23 albuterol sulfate 90 mcg/actuation 2 puff inhalation Q4-6H PRN 07/16/23 aerosol inhaler (ProAir HFA) shortness of breath or wheezing #8.5 grams prednisone 20 mg tablet 40 mg (2 x 20 mg) PO DAILY #10 tabs 07/16/23 albuterol sulfate 2.5 mg/3 mL 2.5 mg (3 mL) inhalation Q4-6H PRN 11/07/23 (0.083 %) solution for nebulization shortness of breath or wheezing #90 mL albuterol sulfate 90 mcg/actuation 2 puff inhalation Q6H PRN 11/07/23 aerosol inhaler shortness of breath or wheezing #8.5 grams benzonatate 200 mg capsule 200 mg PO TID PRN cough #20 caps 11/07/23 cefuroxime axetil 500 mg tablet 500 mg PO BID 7 days #14 tabs 11/07/23 nebulizers #1 ea 11/07/23 prednisone 20 mg tablet 40 mg (2 x 20 mg) PO DAILY #10 tabs 11/07/23 Allergies Allergy/AdvReac Type Severity Reaction Status Date / Time cat dander [cats] Allergy Sneezing Verified 11/07/23 00:20 pollen extracts Allergy Sneezing Verified 11/07/23 00:20 Review of Systems Review of Systems: Yes all other systems are reviewed and are negative PMFSH Past Medical History Medical History Asthma History of HIV infection Social History Social History Alcohol intake: never Patient Tobacco Use Status: Former Tobacco user Tobacco use type: Cigarette Cigarettes Per Day: 7 Years Smoked: started at 19 Smoked in Last 30 Days: No Use of substances other than those prescribed or required for medical reasons: No Substance Use Type: Methamphetamine Advance Directives: No Advance Directives Information Provided: No Do you have a plan to hurt others: No Plan Physical Exam Vital Signs: Vital Signs: Last Vital Signs Temp 98.3 F 11/07/23 00:18 Pulse 108 H 11/07/23 00:57 Resp 18 11/07/23 00:57 BP 164/78 H 11/07/23 00:18 Pulse Ox 95 11/07/23 00:18 O2 Del Method Room Air 11/07/23 00:18 BMI result Body Mass Index 30.9 Appearance: Alert. Oriented X3. No acute distress. Eyes: No pallor or icterus ENT: Pharynx normal. Oral Mucosa moist Neck: Normal inspection. Neck supple. CVS: Normal heart rate and rhythm. Pulses normal. Respiratory: No respiratory distress. Equal air entry bilateral, bilateral wheezing no crackles Abdomen: Soft and nontender. Bowel sounds are present, Skin: Skin warm and dry. Normal skin color. Normal skin turgor. Extremities: No lower extremity edema. No calf tenderness Neuro: Oriented X 3. No motor deficit. Medications Administered Discontinued Medications Generic Name Dose Route Start Last Admin Trade Name Freq PRN Reason Stop Dose Admin Albuterol Sulfate 2.5 mg/ 0 mg 11/07/23 00:46 11/07/23 00:56 Albuterol/Ipratropium 3 ml INHALE 11/07/23 00:47 5 dose ONCE ONE Administration Dexamethasone 10 mg 11/07/23 00:46 11/07/23 00:54 Dexamethasone 2 Mg Tablet PO 11/07/23 00:47 10 mg ONCE ONE Administration Medical Decision Making Medical Decision Making [facility] Narrative: Patient's asthma with increased congestion and wheezing will check for the COVID flu prescribe nebulizing treatment and Decadron patient is saturating 95% at room air Lab Data [facility] Lab Attestation statement: I reviewed the patient's lab results. Labs: Lab Results 11/07/23 Range/Units 01:30 Influenza Type A (PCR) NEGATIVE (Negative) Influenza Type B (PCR) NEGATIVE (Negative) RSV RNA Qual (PCR) NEGATIVE (Negative) SARS-CoV-2 RNA (RT-PCR) NEGATIVE (Negative) Discharge Plan Discharge Clinical Impression: Asthma with acute exacerbation Patient Disposition: Home, Self-Care Instructions: Asthma (ED) Additional Instructions: Use nebulizer treatment/albuterol inhaler as advised Prednisone as prescribed Cough drops as prescribed Antibiotic as prescribed for bronchitis Prescriptions: New albuterol sulfate 2.5 mg /3 mL (0.083 %) solution for nebulization 2.5 mg inhalation Q4-6H PRN (Reason: shortness of breath or wheezing) Qty: 90 0RF benzonatate 200 mg capsule 200 mg PO TID PRN (Reason: cough) Qty: 20 0RF cefuroxime axetil 500 mg tablet 500 mg PO BID 7 Days Qty: 14 0RF albuterol sulfate 90 mcg/actuation HFA aerosol inhaler 2 puff inhalation Q6H PRN (Reason: shortness of breath or wheezing) Qty: 8.5 0RF (DME) nebulizers Misc See Rx Instructions .Route Qty: 1 0RF Rx Instructions: As directed prednisone 20 mg tablet 40 mg PO DAILY Qty: 10 0RF No Action beclomethasone dipropionate 80 mcg/actuation HFA aerosol breath activated 1 inh inhalation BID 30 Days Qty: 10.6 6RF albuterol sulfate 90 mcg/actuation HFA aerosol inhaler 2 puff inhalation Q4-6H PRN (Reason: shortness of breath or wheezing) Qty: 8 .5 6RF prednisone 50 mg tablet 50 mg PO DAILY Qty: 4 0RF albuterol sulfate 90 mcg/actuation HFA aerosol inhaler 2 puff inhalation Q4-6H PRN (Reason: shortness of breath or wheezing) Qty: 8.5 1RF albuterol sulfate 2.5 mg /3 mL (0.083 %) solution for nebulization 2.5 mg inhalation Q4-6H PRN (Reason: shortness of breath or wheezing) Qty: 75 0RF cetirizine 10 mg tablet 10 mg PO DAILY prazosin 1 mg capsule 1 mg PO BEDTIME amlodipine 5 mg tablet 5 mg PO DAILY trazodone 100 mg tablet 100 mg PO BEDTIME montelukast 10 mg tablet 10 mg PO BEDTIME Symtuza [phone] mg tablet 1 tab PO DAILY sulfamethoxazole-trimethoprim [Bactrim DS] 800-160 mg Tablet 1 tab PO DAILY biotin 5 mg Capsule 5 mg PO DAILY amoxicillin-pot clavulanate 875-125 mg Tablet 1 tab PO BID Rx Instructions: prescribed for 7 days, started on 10/16/22 albuterol sulfate 2.5 mg /3 mL (0.083 %) solution for nebulization 2.5 mg inhalation Q4-6H PRN (Reason: shortness of breath or wheezing) Qty: 75 0RF prednisone 20 mg tablet 40 mg PO DAILY Qty: 10 0RF albuterol sulfate [ProAir HFA] 90 mcg/actuation HFA aerosol inhaler 2 puff inhalation Q4-6H PRN (Reason: shortness of breath or wheezing) Qty: 8.5 0RF ipratropium bromide 42 mcg (0.06 %) spray,non-aerosol 2 spray intranasal TID 30 Days Qty: 15 6RF Rx Instructions: administer into each nostril Print Language: Hebrew
[2023-11-07] MEDS: dexAMETHasone 2 MG TABLET 10 MG PO (00:54)
[2023-11-07] MEDS: Albuterol Sulfate 2.5 MG, Albuterol/Iprat 2.5/0.5MG 3 ML 3 ML INHALE (00:56)
[2023-11-07 00:57] VITALS: PULSE 108; RESP 18; O2SAT 93
--- NOTE | 2023-11-07 00:57 | PC.NURSE ---
pt medicated per mar, tolerated well with water.
[2023-11-07 02:12] LABS: Influenza A PCR NEGATIVE (Negative); Influenza B PCR NEGATIVE (Negative); Resp Syncy Virus RNA Qual PCR NEGATIVE (Negative); SARS COV2 PCR INHOUSE NEGATIVE (Negative)
[2023-11-07 02:30] VITALS: BP 133/77; PULSE 101; RESP 18; TEMP 37; O2SAT 95
[2023-11-07] MEDS: Benzonatate 100 MG CAPSULE 200 MG PO (02:38)
[2023-11-07] MEDS: cefuroxime axetiL 500 MG TABLET PO (02:39)
[2023-11-07 02:41] VITALS: BP 133/77; PULSE 101; RESP 18; TEMP 37; O2SAT 95
== END 2023-11-07 02:41 | disposition home or self-care (01) ==
PROVIDERS: Emergency Provider Internal Medicine; PCP Internal Medicine Infectious Disease
DX: J45.901 Unspecified asthma with (acute) exacerbation (principal); Z03.818 Encounter for observation for suspected exposure to other biological agents ruled out
CPT/HCPCS: 0241U; 94640; 99284; 99285; J8540

== ENCOUNTER 2024-02-29 16:10 | Emergency (ER) | payer OTHER, SELFPAY ==
[2024-02-29 17:03] VITALS: BP 142/80; PULSE 74; RESP 18; TEMP 36.7; O2SAT 97; BMI 27.1
--- NOTE | 2024-02-29 17:03 | ED.SKABFB ---
HPI - Skin/Abscess/Foreign Bdy General Chief complaint: Dental/Oral Stated complaint: Abscess Time Seen by Provider: 02/29/24 17:06 Source: patient Mode of arrival: ambulatory Limitations: no limitations History of Present Illness ED Provider: Duy Ross PA-C HPI narrative: 38-year-old male with history of asthma presents to the ER for evaluation of a dental abscess. Patient reports right lower dental pain and swelling for the last 2 days. He does not have a dentist. He reports pain with eating and chewing. He denies any difficulty opening or closing his mouth. Denies any fever or chills. Denies any neck swelling. MD complaint: other (Dental abscess) Onset (ago): day(s) (2) Location: face Severity: severe Severity scale (1-10): 8 Quality: stabbing and aching Pain Consistency: constant Relieving factors: none Exacerbating factors: palpation Context: none Associated symptoms: denies other symptoms Treatments prior to arrival: NSAID Related Data Home Medications ?Medication ?Instructions ?Recorded ?Confirmed amlodipine 5 mg tablet 5 mg PO DAILY 10/18/22 10/19/22 amoxicillin 875 mg-potassium 1 tab PO BID 10/18/22 10/19/22 clavulanate 125 mg tablet biotin 5 mg capsule 5 mg PO DAILY 10/18/22 10/19/22 cetirizine 10 mg tablet 10 mg PO DAILY 10/18/22 10/19/22 darunavir 800 mg-cob 150 1 tab PO DAILY 10/18/22 10/19/22 mg-emtricit 200 mg-tenofo alafen 10 mg tablet (Symtuza) montelukast 10 mg tablet 10 mg PO BEDTIME 10/18/22 10/19/22 prazosin 1 mg capsule 1 mg PO BEDTIME 10/18/22 10/19/22 sulfamethoxazole 800 1 tab PO DAILY 10/18/22 10/19/22 mg-trimethoprim 160 mg tablet (Bactrim DS) trazodone 100 mg tablet 100 mg PO BEDTIME 10/18/22 10/19/22 Previous Rx's ?Medication ?Instructions ?Recorded albuterol sulfate 2.5 mg/3 mL 2.5 mg (3 mL) inhalation Q4-6H PRN 10/18/22 (0.083 %) solution for nebulization shortness of breath or wheezing #75 mL ipratropium bromide 42 mcg (0.06 2 spray intranasal TID 30 days #15 02/19/23 %) nasal spray mL beclomethasone dipropionate 80 1 inh inhalation BID 30 days #10.6 03/09/23 mcg/actuation HFA breath activated grams aerosol albuterol sulfate 90 mcg/actuation 2 puff inhalation Q4-6H PRN 04/27/23 aerosol inhaler shortness of breath or wheezing #8.5 grams albuterol sulfate 2.5 mg/3 mL 2.5 mg (3 mL) inhalation Q4-6H PRN 06/25/23 (0.083 %) solution for nebulization shortness of breath or wheezing #75 mL albuterol sulfate 90 mcg/actuation 2 puff inhalation Q4-6H PRN 06/25/23 aerosol inhaler shortness of breath or wheezing #8.5 grams prednisone 50 mg tablet 50 mg PO DAILY #4 tabs 06/25/23 albuterol sulfate 90 mcg/actuation 2 puff inhalation Q4-6H PRN 07/16/23 aerosol inhaler (ProAir HFA) shortness of breath or wheezing #8.5 grams prednisone 20 mg tablet 40 mg (2 x 20 mg) PO DAILY #10 tabs 07/16/23 albuterol sulfate 2.5 mg/3 mL 2.5 mg (3 mL) inhalation Q4-6H PRN 11/07/23 (0.083 %) solution for nebulization shortness of breath or wheezing #90 mL albuterol sulfate 90 mcg/actuation 2 puff inhalation Q6H PRN 11/07/23 aerosol inhaler shortness of breath or wheezing #8.5 grams benzonatate 200 mg capsule 200 mg PO TID PRN cough #20 caps 11/07/23 cefuroxime axetil 500 mg tablet 500 mg PO BID 7 days #14 tabs 11/07/23 nebulizer and compressor #1 kit 11/07/23 prednisone 20 mg tablet 40 mg (2 x 20 mg) PO DAILY #10 tabs 11/07/23 amoxicillin 875 mg-potassium 1 tab PO BID #20 tabs 02/29/24 clavulanate 125 mg tablet ibuprofen 600 mg tablet 600 mg PO Q8H PRN pain #14 tabs 01/21/25 Allergies Allergy/AdvReac Type Severity Reaction Status Date / Time cat dander [cats] Allergy Sneezing Verified 02/29/24 17:04 pollen extracts Allergy Sneezing Verified 02/29/24 17:04 Review of Systems Review of Systems: Yes all other systems are reviewed and are negative [facility] Past Medical History Medical History Asthma History of HIV infection Social History Social History Alcohol intake: never Patient Tobacco Use Status: Former Tobacco user Tobacco use type: Cigarette Cigarettes Per Day: 7 Years Smoked: started at 19 Substance Use Type: Methamphetamine Advance Directives: No Advance Directives Information Provided: No Physical Exam Vital Signs: Vital Signs: Last Vital Signs Temp 98.1 F 02/29/24 17:39 Pulse 74 02/29/24 17:39 Resp 18 02/29/24 17:39 BP 142/80 H 02/29/24 17:39 Pulse Ox 97 02/29/24 17:39 O2 Del Method Room Air 02/29/24 17:39 BMI result Body Mass Index 27.1 Appearance: Alert. Oriented X3. No acute distress. HEENT: right lower mandibular swelling, no trismus. very poor dentition with multiple decaying and broken teeth. anterior right lower tooth is tender to palpation with associated gingival tenderness and swelling, no fluctuance. normal oropharynx CVS: Normal heart rate and rhythm. Pulses normal. Respiratory: No respiratory distress. Skin: Skin warm and dry. Normal skin color. Normal skin turgor. No rashes. Extremities: Normal inspection x4 Neuro: Oriented X 3. Grossly normal, nonfocal, steady gait Medical Decision Making Medical Decision Making MDM Narrative: 38 yo male presenting for evaluation of right lower anterior dental abscess x2 days. hx abscesses and poor dental care in the past. exam c/w early abscess, no drainable site apprecaited. will start on PO abx, NSAID and provide urgent dental referral list so he can get appropriate follow up. importance of close follow up stressed to the patient who expressed understanding. return precautions discussed Differential Diagnosis Differential Diagnoses: The differential diagnosis associated with the presentation includes dental abscess, ludwigs angina, toothache, tooth decay Tests considered The following testing was considered but not selected: considered CT scan of the facial bones/soft tissue neck but there is no evidence of extension into the soft tissues of the neck/anterior neck Prescription Management I considered prescription management with: Pain Medication and Antibiotic Social Determinants Patient?s care significantly limited by Social Determinants of Health including: Other Social Determinant of Health Discharge Plan Discharge Clinical Impression: Dental abscess Patient Disposition: Home, Self-Care Instructions: Dental Abscess (ED) Additional Instructions: Take the prescribed antibiotics as directed, complete the entire course and do not miss any doses FOLLOW UP WITH A DENTIST SOON POSSIBLE Call or visit any of the clinics below to establish with a dentist: [facility] [address] [place] [address] [facility] [address] [place] [address] [facility] [address] [facility], [address] [facility] [address] [place] [address] [facility] [address] [place] [address] [facility] [address] [place] [address] [place] [address] [place] [address] Prescriptions: New amoxicillin-pot clavulanate 875-125 mg tablet 1 tab PO BID Qty: 20 0RF ibuprofen 600 mg tablet 600 mg PO Q8H PRN (Reason: pain) Qty: 14 0RF No Action beclomethasone dipropionate 80 mcg/actuation HFA aerosol breath activated 1 inh inhalation BID 30 Days Qty: 10.6 6RF albuterol sulfate 90 mcg/actuation HFA aerosol inhaler 2 puff inhalation Q4-6H PRN (Reason: shortness of breath or wheezing) Qty: 8.5 6RF prednisone 50 mg tablet 50 mg PO DAILY Qty: 4 0RF albuterol sulfate 90 mcg/actuation HFA aerosol inhaler 2 puff inhalation Q4-6H PRN (Reason: shortness of breath or wheezing) Qty: 8.5 1RF albuterol sulfate 2.5 mg /3 mL (0.083 %) solution for nebulization 2.5 mg inhalation Q4-6H PRN (Reason: shortness of breath or wheezing) Qty: 75 0RF albuterol sulfate 2.5 mg /3 mL (0.083 %) solution for nebulization 2.5 mg inhalation Q4-6H PRN (Reason: shortness of breath or wheezing) Qty: 90 0RF benzonatate 200 mg capsule 200 mg PO TID PRN (Reason: cough) Qty: 20 0RF cefuroxime axetil 500 mg tablet 500 mg PO BID 7 Days Qty: 14 0RF albuterol sulfate 90 mcg/actuation HFA aerosol inhaler 2 puff inhalation Q6H PRN (Reason: shortness of breath or wheezing) Qty: 8.5 0RF prednisone 20 mg tablet 40 mg PO DAILY Qty: 10 0RF (DME) nebulizer and compressor Device See Rx Instructions .ROUTE Qty: 1 0RF Rx Instructions: As directed cetirizine 10 mg tablet 10 mg PO DAILY prazosin 1 mg capsule 1 mg PO BEDTIME amlodipine 5 mg tablet 5 mg PO DAILY trazodone 100 mg tablet 100 mg PO BEDTIME montelukast 10 mg tablet 10 mg PO BEDTIME Symtuza [phone] mg tablet 1 tab PO DAILY sulfamethoxazole-trimethoprim [Bactrim DS] 800-160 mg Tablet 1 tab PO DAILY biotin 5 mg Capsule 5 mg PO DAILY amoxicillin-pot clavulanate 875-125 mg Tablet 1 tab PO BID Rx Instructions: prescribed for 7 days, started on 10/16/22 albuterol sulfate 2.5 mg /3 mL (0.083 %) solution for nebulization 2.5 mg inhalation Q4-6H PRN (Reason: shortness of breath or wheezing) Qty: 75 0RF prednisone 20 mg tablet 40 mg PO DAILY Qty: 10 0RF albuterol sulfate [ProAir HFA] 90 mcg/actuation HFA aerosol inhaler 2 puff inhalation Q4-6H PRN (Reason: shortness of breath or wheezing) Qty: 8.5 0RF ipratropium bromide 42 mcg (0.06 %) spray,non-aerosol 2 spray intranasal TID 30 Days Qty: 15 6RF Rx Instructions: administer into each nostril Interventions: ED Discharge Assessment Last Done: 02/29/24 17:39 Discharge Date/Time: 02/29/24 17:39 Print Language: Tunisian
[2024-02-29 17:39] VITALS: BP 142/80; PULSE 74; RESP 18; TEMP 36.7; O2SAT 97
== END 2024-02-29 17:39 | disposition home or self-care (01) ==
LOC: HO.ED 17:14
PROVIDERS: Emergency Provider Emergency Medicine Emergency Medical Services; PCP Internal Medicine Infectious Disease
DX: K04.7 Periapical abscess without sinus (principal); Z87.891 Personal history of nicotine dependence; Z79.899 Other long term (current) drug therapy
CPT/HCPCS: 99282; 99283